=== PATIENT | female | born 1960 | race Caucasian/White ===

== ENCOUNTER 2022-12-29 08:33 | Outpatient (RCR) | payer MEDICARE, SELFPAY | END 2023-01-18 16:56 | disposition home or self-care (01) | LOC: PT 08:33 | PROVIDERS: PCP Family Medicine; Visit Provider Anesthesiology Pain Medicine | DX: M54.50 Low back pain, unspecified (principal); M54.16 Radiculopathy, lumbar region | CPT/HCPCS: 97010; 97110; 97113; 97140; G0283 ==

== ENCOUNTER 2022-12-29 11:40 | Outpatient (OUT) | payer BC, MEDICARE, SELFPAY ==
--- NOTE | 2022-12-29 12:01 | P.HP_ITS ---
Consult Note: HPI Data of Consult Patient: known to practice within the last 3 years Consult date: 12/29/22 Requesting Physician: CAYDEN ROBERTS NP Primary Care Provider: Luis Daniel Russell MD Consult Narrative Reason for consult: low back pain Narrative: Mesha is here for f/u of right LCIH nerve block. She received 80% relief of pain and increased function after procedure. She would like to proceed with RFA of same area. No medication SE. No new sensorimotor sx or bowel or bladder issues. She has weaned off of her percocet and is now doing medical marijuana which she states is helping her more. cc:: CC: CAYDEN ROBERTS NP Review of Systems ROS Status of ROS 10 or more systems reviewed and unremarkable except as noted in history and below Exam Constitutional: Common normals: no apparent distress, average body habitus, oriented x3, no limitations, healthy appearing, alert and well nourished General appearance: cooperative and comfortable Orientation/consciousness: Yes awake, Yes oriented to person, Yes oriented to place and Yes oriented to time HENMT: Common normals: normocephalic Neck & C-Spine: Common normals: full ROM General: normal visual inspection Respiratory: Common normals: normal respiratory effort, no retractions and no use of accessory muscles Effort & inspection: able to speak in complete sentences Back & Pelvis: Common normals: thoracic and lumbar spine normal to inspection Thoracic spine/upper back: normal to inspection Lumbar spine/lower back: n ormal to inspection, ROM limited, pain with ROM, lumbar spinal tenderness and straight leg raise negative bilaterally Sacroiliac joints: SI joints normal (positive thigh thrust, positive bridget, positive gaenslens. muscle strength ) Extremity: Common normals: normal to inspection and normal capillary refill Skin: Common normals: no rashes or lesions noted, no wounds and skin turgor normal Assessment and Plan Assessment and Plan (1) Neuritis: (2) Muscle spasm: Plan schedule right LCIH RFA
== END 2022-12-29 11:41 | disposition home or self-care (01) ==
PROVIDERS: PCP Family Medicine; Visit Provider Nurse Practitioner
DX: M79.2 Neuralgia and neuritis, unspecified (principal); M62.838 Other muscle spasm
CPT/HCPCS: G0463

== ENCOUNTER 2023-01-24 06:57 | Day surgery (SDC) | payer MEDICARE, SELFPAY ==
[2023-01-24 07:17] VITALS: BP 124/86; PULSE 78; RESP 18; TEMP 36.7; O2SAT 99
[2023-01-24] MEDS: 0.9 % SODIUM CHLORIDE 500 ML IV (07:33)
--- NOTE | 2023-01-24 07:41 | W.PM.PROCNOT ---
Date of procedure: 01/24/23 Procedure: Right Lateral cutaneous iliohypogastric nerve Radiofrequency ablation PreOp diagnosis: pain secondary to include right lateral cutaneous neuritis Postop diagnosis: same Under fluoroscopic guidance Rhizotomy was created using radio frequency ablation at 80?C for 90 seconds 1 to 2 lesions created at each site. Post lesioning injection of 2 mL each of 0.25% Marcaine and 2% lidocaine with Depo-Medrol 40mg. 0.5 to 1 mL injected at each site IV in place yes Intravenous fluids: NS at KVO Anesthesia local 2% lidocaine Anesthesia Other: MAC Timeout process compliant After informed consent obtained. Patient brought to the procedure room placed in the prone position skin overlying the area was prepped and draped in a sterile fashion using betadine. 25 gauge needle was used to create a skin wheal over each of the targeted areas utilizing 2% lidocaine. A rhizotomy needle with a 10 mm active tip was inserted over each of the anesthetized areas and directed towards four different areas in the distribution of the lateral cutaneous branches of the iliohypogastric nerve, accomplished under fluoroscopic guidance. After encountering the same we had positive sensory stimulation, negative motor stimulation was noted. lesions were then created. Post lesioning, steroid solution was injected needles removed. Patient was transferred to recovery room in stable condition to be discharged home after meeting criteria. Anesthesia: MAC Surgeon: Paola Aleman Condition: stable
[2023-01-24] MEDS: BUPIVACAINE HCL 0.25% PF 25 MG/10 ML VIAL 8 ML INJ (07:54)
[2023-01-24] MEDS: METHYLPREDNISOLONE ACETATE 40 MG/ML VIAL INJ (07:55)
[2023-01-24] MEDS: LIDOCAINE HCL 2% 400 MG/20 ML MDV 5 ML INJ (07:55)
[2023-01-24 08:09] VITALS: BP 103/68; PULSE 95; RESP 16; TEMP 36.6
[2023-01-24 08:12] VITALS: BP 106/69; PULSE 58; RESP 16; O2SAT 97
== END 2023-01-24 08:31 | disposition home or self-care (01) ==
PROVIDERS: PCP Family Medicine; Visit Provider Anesthesiology Pain Medicine
DX: G57.81 Other specified mononeuropathies of right lower limb (principal)
CPT/HCPCS: 64640; 77002; J1030; J2704

== ENCOUNTER 2023-03-29 12:46 | Outpatient (OUT) | payer MEDICARE, SELFPAY ==
--- NOTE | 2023-03-29 12:56 | P.CN_ITS ---
Consult Note: HPI Data of Consult Patient: known to practice within the last 3 years Requesting Physician: Juana Seaman NP Primary Care Provider: Luis Daniel Russell MD Consult Narrative Reason for consult: low back pain Narrative: Mesha Jung a pleasant 63 year old female presents to the office for evaluation of chronic low back and left buttock pain. Patient recently underwent right LCIH RFA with 50% pain relief and functional improvment. Patient continues to have severe low back pain and would like to discuss additional follow up. Pain today 02/06 cc:: CC: Juana Seaman NP Review of Systems ROS Status of ROS 10 or more systems reviewed and unremarkable except as noted in history and below Musculoskeletal Reports: back pain and joint pain PFSH [facility] Medical History (Updated 03/29/23 @ 14:59 by Juana Seaman NP) Surgical History Meds Home Medications and Allergies Home Medications Medication Instructions Recorded Confirmed Type calcium 100 mg capsule mg PO QDAY 01/19/23 History cbd extract BID 01/19/23 History cholecalciferol (vitamin D3) 50 50 mcg PO DAILY 01/19/23 01/24/23 History mcg (2,000 unit) tablet (D3 DOTS) lisinopril 20 1 tab PO BID 01/19/23 01/24/23 History mg-hydrochlorothiazide 25 mg tablet multivitamin 1 tab PO DAILY 01/19/23 01/24/23 History naproxen 500 mg tablet 500 mg PO BID 01/24/23 01/24/23 History Allergies Allergy/AdvReac Type Severity Reaction Status Date / Time No Known Drug Allergies Allergy Verified 01/24/23 07:10 Exam Constitutional Documenting provider has reviewed patient's vital signs: yes Common normals: no apparent distress, oriented x3, healthy appearing, alert and well nourished General appearance: cooperative HENMT Common normals: normocephalic, hearing grossly normal bilaterally and moist oral mucous membranes Head and scalp: normocephalic Eye Common normals: PERRL Pupil: PERRL Neck & C-Spine Common normals: full ROM General: normal visual inspection Chest Common normals: inspection of chest normal Respiratory Common normals: normal respiratory effort, no retractions and no use of accessory muscles Back & Pelvis Thoracic spine/upper back: ROM limited and pain with ROM Lumbar spine/lower back: ROM limited and pain with ROM Sacroiliac joints: SI joint(s) abnormal (bilateral pain over PSIS, positive thigh thrust, EMMANUEL, niko L>R) Other: no radiculopathy, predominately axial back pain. neuritis to buttocks Extremity Common normals: normal to inspection and full ROM Right lower extremity: knee joint (pain with weight bearing and ROM) Left lower extremity: knee joint (pain with weight bearing and ROM) Neuro Common normals: oriented x3, CN's II-XII intact bilaterally, moves all extremities, no focal motor deficits, no sensory deficits noted and deep tendon reflexes 2+ bilaterally Sensorium/orientation: alert Motor exam: strength 5/5 throughout and no movement abnormalities noted Psych Common normals: mental status grossly normal, thought process normal, cooperative, affect normal, speech normal and activity/motor behavior normal Speech: normal speech Thought process: normal thought process Results Additional Findings Additional findings: I have checked an [place] report on this patient today and there are no aberrancies noted in the prescribing history.?? A drug screen was completed and reviewed within the last year, and if there has not been a drug screen completed we ordered one today to monitor higher risk, state monitored pain medication use. As part of providing excellent, safe, comprehensive care, the following was completed at our patient's visit: 1. A medication reconciliation and review to ensure accurate knowledge of current/active medications, including asking our patients to inform us about any [id number] medications or herbal remedies/nutritional supplements/alternative remedies. 2. A review to specifically ensure our patients have had annual screening for: elevated body mass index (BMI), tobacco use, screening for depression, and screening for unhealthy alcohol use. When screening is concerning, patients are provided with education and the specific recommendation to discuss the concerning health issue and treatment options with their primary care provider. The patient has had over 3 months of moderate to severe low back pain with funct ional impairment and inadequate response to conservative care including NSAIDS (unless there are contraindication such as concurrent blood thinners), multiple oral or topical pain medications, and home exercise program/physical therapy.? Patient has completed >6 weeks of guided home exercise program and/or formal physical therapy program without relief of their symptoms.? The Oswestry Disability Index was completed, and the patient scored a 36%.? The patient noted the following:??moderate pain, can only lift light weights, pain prevents her from walking more than 0.5 miles, pain prevents her from sitting more than one hour, pain prevents her from standing for more than 1 hr, pain restricts social life We discussed the risks and benefits of the procedure with the patient, and we are NOT planning on using sedation as outlined in the guidelines from Medicare unless there is a documented reason that sedation would be strongly recommended.?? The procedure will be completed with fluoroscopic guidance.? Assessment and Plan Assessment and Plan (1) Lumbar spondylosis: Assessment and Plan: predominately axial low back pain, positive facet loading bilateral xray of lumbar spine reviewed (2) Bilateral sacroiliitis: Assessment and Plan: bilateral positive EMMANUEL, gaenslens, thigh thrust, and SI compression. Left>Right (3) Muscle spasm: (4) Fibromyalgia: Plan bilateral L4/5 L5/S1 MBB under fluoroscopy working towards thermal RFA patient currently on duloxetine 30mg daily, with fibromyalgia and chronic pain syndrome history recommend increasing to 60mg daily, pt will discuss with PCP next week. Offered to take over prescribing patient would like to talk with PCP. consider gabapentin/lyrica in the future for fibromyalgia f/u after procedure
== END 2023-03-29 12:47 | disposition home or self-care (01) ==
LOC: PM 12:47
PROVIDERS: PCP Family Medicine; Visit Provider Nurse Practitioner
DX: M47.816 Spondylosis without myelopathy or radiculopathy, lumbar region (principal); M62.838 Other muscle spasm; M46.1 Sacroiliitis, not elsewhere classified
CPT/HCPCS: G0463

== ENCOUNTER 2023-07-18 11:39 | Outpatient (OUT) | payer MEDICARE, SELFPAY ==
[2023-07-18 11:59] LABS: Basophils Percent Auto 0.6 % (0.2-2.0); Eosinophils Absolute Auto 0.1 10^3/uL (0.0-0.7); Eosinophils Percent Auto 0.9 % (0.9-7.0); Hemoglobin 11.7 g/dL (12.0-16.0); Immature Granulocytes Abs Auto 0.02 10^3/uL (0.00-0.03); Immature Granulocytes Pct Auto 0.3 % (0.0-0.5); Lymphocytes Absolute Auto 1.4 10^3/uL (1.2-3.8); Lymphocytes Percent Auto 22.1 % (20.5-60.0); Mean Corpuscular HGB Conc 32.5 g/dL (29.9-35.2); Mean Corpuscular Volume 89.3 fL (81.0-99.0); Mean Platelet Volume 9.4 fL (9.5-13.5); Monocytes Absolute Auto 0.3 10^3/uL (0.3-0.8); Monocytes Percent Auto 5.3 % (1.7-12.0); Neutrophils Absolute Auto 4.5 10^3/uL (1.4-6.5); Neutrophils Percent Auto 70.8 % (43.0-75.0); Platelet Count 360 10^3/uL (150-450); Red Blood Count 4.03 10^6/uL (4.20-5.40); Red Cell Distribution Width 13.3 % (11.0-15.0); White Blood Count 6.4 10^3/uL (4.0-11.0)
[2023-07-18 12:22] LABS: Estimated Average Glucose 120 mg/dL; Glycohemoglobin A1C 5.8 % (4.5-6.2)
[2023-07-18 13:35] LABS: Alanine Aminotransferase 26 U/L (14-59); Albumin Globulin Ratio 1.1; Albumin Level 3.5 g/dL (3.4-5.0); Alkaline Phosphatase 69 U/L (46-116); Aspartate Amino Transferase 19 U/L (15-37); Bilirubin Direct 0.1 mg/dL (0.0-0.2); Bilirubin Total 0.5 mg/dL (0.2-1.0); Calcium 9.7 mg/dL (8.5-10.1); Carbon Dioxide 31.5 mmol/L (21.0-32.0); Chloride 101 mmol/L (98-107); Chol HDL Ratio 3.5; Cholesterol 177 mg/dL (<=200); Estimated GFR (African America >60 (>=60); Estimated GFR (Non-African Ame >60 (>=60); Globulin 3.3 g/dL; Glucose 118 mg/dL (74-106); HDL Cholesterol 50 mg/dL (40-60); LDL Cholesterol Calculated 107.8 mg/dL; Potassium 3.5 mmol/L (3.5-5.1); Sodium 139 mmol/L (136-145); Thyroid Stimulating Hormone 0.744 uIU/mL (0.358-3.740); Total Protein 6.8 g/dL (6.4-8.2); Triglycerides 96 mg/dL (<=150); VLDL CHOLESTEROL 19.2 mg/dL
== END 2023-07-18 11:40 | disposition home or self-care (01) ==
LOC: LAB 11:43
PROVIDERS: PCP Family Medicine; Visit Provider Family Medicine
DX: Z79.899 Other long term (current) drug therapy (principal); I10 Essential (primary) hypertension; R73.03 Prediabetes; E66.9 Obesity, unspecified; E53.8 Deficiency of other specified B group vitamins; Z68.30 Body mass index [BMI] 30.0-30.9, adult
CPT/HCPCS: 36415; 80048; 80061; 80076; 82607; 83036; 84443; 85025

== ENCOUNTER 2023-09-01 13:13 | Outpatient (OUT) | payer MEDICARE, SELFPAY ==
--- OUTSIDE RECORDS SUMMARY | 2023-09-01 13:18 | XMS_ITS | CCD ---
Author Name Unknown Address [id number] [place] [address] Organization [facility] Care Team Providers Care Wildlife Protector Name Role Phone TRENT ., DR HECTOR Garcia Attending Unavailable BARFIELD ., PATRIA Consulting Unavailable TRENT ., DR HECTOR Garcia Admitting Unavailable NADERER, DR LUIS DANIEL Nazario Primary Care Unavailable TRENT ., DR HECTOR Garcia Attending Unavailable TRENT ., DR HECTOR Garcia Admitting Unavailable TRENT ., DR HECTOR Garcia Consulting Unavailable NADERENick, DR LUIS DANIEL Nazario Primary Care Unavailable BARFIELD ., PATRIA Consulting Unavailable NADERENick, DR LUIS DANIEL Nazario Primary Care Unavailable TRENT ., DR HECTOR Garcia Admitting Unavailable TRENT ., DR HECTOR Garcia Attending Unavailable LAKSHMIPATHY ., GRACIELA Attending Serena vailable LAKSHMIPATHY ., GRACIELA Admitting Serena vailable NADBETH, DR LUIS DANIEL Nazario Primary Care Unavailable LACEY, DR WILFRED Romero Consulting Unavailable LAKSHMIPATHY ., GRACIELA Consulting Serena vailable NADBETH, DR LUIS DANIEL Nazario Admitting Unavailable NADBETH, DR LUIS DANIEL Nazario Primary Care Unavailable NADERENick, DR LUIS DANIEL Nazario Consulting Unavailable NADERENick, DR LUIS DANIEL Nazario Attending Unavailable LAKSHMIPATHY ., NARVENUS Attending Serena vailable LAKSHMIPATHY ., GRACIELA Admitting Serena vailable NADBETH, DR LUIS DANIEL Nazario Primary Care Unavailable NADBETH, DR LUIS DANIEL Nazario Primary Care Unavailable NADERENick, DR LUIS DANIEL Nazario Attending Unavailable NADERENick, DR LUIS DANIEL Nazario Admitting Unavailable WEST, DR RACHEL Sanon Consulting Unavailable NADERER, DR LUIS DANIEL Nazario Consulting Unavailable NADBETH, DR LUIS DANIEL Nazario Primary Care Unavailable TRENT ., DR HECTOR Garcia Consulting Unavailable TRENT ., DR HECTOR Garcia Attending Unavailable TRENT ., DR HECTOR Garcia Admitting Unavailable OPHELIA NEWMAN Consulting Unavailable BARFIELD ., PATRIA Consulting Unavailable NADERER, DR LUIS DANIEL Nazario Primary Care Unavailable TRENT ., DR HECTOR Garcia Admitting Unavailable TRENT ., DR HECTOR Garcia Attending Unavailable LAKSHMIPATHY ., GRACIELA Consulting Serena vailable NADERER, DR LUIS DANIEL Nazario Primary Care Unavailable TRENT ., DR HECTOR Garcia Admitting Unavailable BARFIELD ., PATRIA Consulting Unavailable TRENT ., DR HECTOR Garcia Attending Unavailable LAKSHMIPATHY ., NARENDRANJUDI Consulting Serena vailable LAKSHMIPATHY ., NARROSANNAATH Attending Serena vailable LAKSHMIPATHY ., NARENDRANATH Admitting Serena vailable NADERER, DR LUIS DANIEL Nazario Primary Care Unavailable LAKSHMIPATHY ., NARENDGRANT Attending Serena vailable LAKSHMIPATHY ., NARENDLATISHAATH Admitting Serena vailable NADERER, DR LUIS DANIEL Nazario Primary Care Unavailable TRENT ., DR HECTOR Garcia Admitting Unavailable NADERER, DR LUIS DANIEL Nazario Primary Care Unavailable TRENT ., DR HECTOR Garcia Consulting Unavailable TRENT ., DR HECTOR Garcia Attending Unavailable JOANADANELLE NOVOA Consulting Unava ilable TRENT ., DR HECTOR Garcia Admitting Unavailable BARFIELD ., PATRIA Consulting Unavailable TRENT ., DR HECTOR Garcia Attending Unavailable NADERER, DR LUIS DANIEL Nazario Primary Care Unavailable NADERER, DR LUIS DANIEL Nazario Primary Care Unavailable REINECK, DR YAMILEX Bhatt Attending Unavailabl e REINECK, DR YAMILEX Bhatt Admitting Unavailabl e REINECK, DR YAMILEX Bhatt Consulting Unavailabl e NADERER, DR LUIS DANIEL Nazario Primary Care Unavailable TRENT ., DR HECTOR Garcia Admitting Unavailable TRENT ., DR HECTOR Garcia Consulting Unavailable TRENT ., DR HECTOR Garcia Attending Unavailable BARFIELD ., PATRIA Attending Unavailable BARFIELD ., PATRIA Admitting Unavailable BARFIELD ., PATRIA Consulting Unavailable NADERER, DR LUIS DANIEL Nazario Primary Care Unavailable NADERER, DR LUIS DANIEL Nazario Primary Care Unavailable TRENT ., DR HECTOR Garcia Admitting Unavailable TRENT ., DR HECTOR Garcia Consulting Unavailable TRENT ., DR HECTOR Garcia Attending Unavailable NADERER, LUIS DANIEL Attending Unavailable Problems Active Problems Problem Classification Problem Date Documented Date Episodic/Chronic Other nervous system disorders (4 sources) Other specified mononeuropathies of right lower limb; Translations: [OTH SPEC MONONEUROPATH RT LOW LIMB] Onset: 12-06-2022 Chronic Other nervous system disorders (2 sources) Other chronic pain; Translations: [OTHER CHRONIC PAIN] Onset: 08-18-2022 Chronic Other nervous system disorders (1 source) Other specified mononeuropathies; Translations: [OTHER SPECIFIED MONONEUROPATHIES] Onset: 11-28-2022 Chronic Other non-traumatic joint disorders (3 sources) Pain in right hip; Translations: [PAIN IN RIGHT HIP] Onset: 11-24-2022 Episodic Spondylosis; intervertebral disc disorders; other back problems (6 sources) Spondylosis without myelopathy or radiculopathy, lumbar region; Translations: [Other intervertebral disc degeneration, lumbar region] Onset: 04-12-2022 Chronic Spondylosis; intervertebral disc disorders; other back problems (6 sources) Intervertebral disc disorders with radiculopathy, lumbar region; Translations: [Radiculopathy, lumbar region] Onset: 08-25-2022 Episodic Unclassified (4 sources) LOW BACK PAIN, UNSPECIFIED; Translations: [LOW BACK PAIN, UNSPECIFIED] Onset: 11-30-2022 Unclassified (3 sources) CONTACT W/AND (SUSP) EXPOS COVID-19; Translations: [CONTACT W/AND (SUSP) EXPOS COVID-19] Onset: 04-16-2022 Viral infection (1 source) COVID-19; Translations: [COVID-19] Onset: 07-13-2022 Past or Other Problems Problem Classification Problem Date Documented Da te Episodic/Chronic Other connective tissue disease (5 sources) Other muscle spasm; Translations: [OTHER MUSCLE SPASM] Onset: 05-12-2022 Episodic Other screening for suspected conditions (not mental disorders or infectious disease) (4 sources) Encounter for screening mammogram for malignant neoplasm of breast; Translations: [ENC SCR MAMMO MALIG NEOPLASM BREAST] Onset: 06-09-2022 Episodic Residual codes; unclassified (1 source) Family history of malignant neoplasm of breast; Translations: [FAMILY HX MALIG NEOPLASM OF BREAST] Onset: 06-13-2022 Episodic Residual codes; unclassified (1 source) Family history of malignant neoplasm, unspecified; Translations: [FAM HX MALIGNANT NEOPLASM UNS] Onset: 06-13-2022 Episodic Unclassified (1 source) LOW BACK PAIN, UNSPECIFIED; Translations: [LOW BACK PAIN, UNSPECIFIED] Onset: 12-09-2022 Unclassified (1 source) CONTACT W/AND (SUSP) EXPOS COVID-19; Translations: [CONTACT W/AND (SUSP) EXPOS COVID-19] Onset: 07-09-2022 Results Test Name Value Interpretation Reference Range Facility MRI TOBY CARD CONon 12-10-19 MRI TOBY CARD CON EXAMINATION: MRI TOBY CARD CON HISTORY: Low back pain ; chronic lumbar pain now radiating into right leg COMPARISON: No relevant comparison available. TECHNIQUE: A variety of imaging planes and parameters were utilized for visualization of suspected pathology. FINDINGS: For the purposes of numbering, sagittal T2 image # 10 extends from the T10-T11 vertebral body superiorly to the S4 level inferiorly. PARASPINAL AREA: Multiple simple appearing renal cysts bilaterally. BONES: Left convex curvature of lumbar spine. No fracture, spondylolisthesis, or bone lesion. CORD/CAUDA EQUINA: Normal caliber, contour, and signal intensity. DISC LEVELS: 12-L1: T10-T11, T11 -12 mild central canal and bilateral foramen narrowing secondary to moderate diffuse disc bulging. L1-L2: Mild central canal and moderate left foramen narrowing. Mild right foramen narrowing. Left paracentral and foraminal broad-based disc extrusion extending cephalad to the mid body level of L1. Marked disc space narrowing. Mild degenerative facet arthropathy. L2-L3: Marked central canal narrowing. Moderate-marked right foramen and moderate left foramen narrowing. Marked diffuse disc bulging and marked disc height reduction with degenerative endplate changes. Moderate degenerative facet arthropathy and marked ligamentum flavum thickening. L3-L4: Moderate-marked central canal and right foramen narrowing. Mild left foramen narrowing. Marked diffuse disc bulging and moderate disc height reduction. Mild degenerative facet arthropathy and ligamentum flavum thickening. L4-L5: Moderate-marked central canal narrowing and moderate foramen narrowing bilaterally. Moderate diffuse disc bulging without significant disc height reduction. Mild degenerative facet arthropathy. L5-S1: Mild central canal and right foramen narrowing. Moderate left foramen narrowing. Mild diffuse disc bulging and mild disc height reduction. Moderate left, mild right degenerative facet arthropathy. IMPRESSION: 1. Multilevel moderate marked degenerative disc disease and degenerative facet arthropathy. 2. Moderate to marked central canal and right foramen narrowing L2-L3, L3-L4, L4-L5 as detailed above. Electronically authenticated by: WILFRED RAHMAN Date: 2022-12-09 11:57 Normal [facility] Covid-19 PCR (CVDTBH)on 06-30 SARS-CoV-2 (COVID-19) RNA KEIRY+probe Ql (Unsp spec) Detected Critically abnormal NOT DETECTED [facility] Comment on above: Result Comment: This test is not yet approved or cleared by the [place] FDA. When there are no FDA-approved or cleared tests available, and other criteria are met, FDA can make tests available under an emergency access mechanism called an Emergency Use Authorization (EUA). The EUA for this test is supported by the Inside Sales Assistant of Health and Human Service's declaration that circumstances exist to justify the emergency use of in vitro diagnostics for the detection and/or diagnosis of the virus that causes COVID-19. This EUA will remain in effect for the duration of the COVID-19 declaration justifying emergency of IVDs, unless it is terminated or revoked by the FDA (after which the test may no longer be used). Performed By: #### [facility] ####[facility] [address] [place], [place] [address]Df. Nelsy Corrigan MG MAMM SCREEN 3D GAVIN CADon 06-09-2022 MG MAMM SCREEN 3D GAVIN CAD Patient: MARICRUZ BOLTON Exam Date: 06/09/2022 : 1960 Gender:F Ordering : DR LUIS DANIEL FARIAS . Admission #: [id number] Family : Order #: [id number] CLICK HERE TO VIEW EXAM RADIOLOGY REPORT PROCEDURE: MAMMOGRAM SCREENING 3D BILATERAL CAD COMPARISON: MAMMO GAVIN SCREEN, 10/29/2013. MAMMO GAVIN SCREEN, 10/23/2015. INDICATIONS: Screening mammography Calculator Name NCI Breast Cancer Risk Assessment Tool 5 Year Breast Cancer Risk 1.60% Lifetime Breast Cancer Risk 6.30% Personal Breast Cancer No Personal Ovarian Cancer No Treatments None Family Cancers Aunt-maternal with breast cancer at age 59; Father with unknown cancer at age 72. LOCATION: [facility] BREAST COMPOSITION: Scattered areas fibroglandular density. FINDINGS: DIAGNOSTIC CATEGORY 2--BENIGN FINDING. NO CHANGE FROM COMPARISON. Scattered benign-appearing nodules are present. Scattered benign-appearing calcifications are present. Scattered benign-appearing lymph nodes are present. RIGHT BREAST: No significant suspicious finding. LEFT BREAST: No significant suspicious finding. Linear scar marker upper outer quadrant RECOMMENDATIONS: ROUTINE MAMMOGRAM AND CLINICAL EVALUATION IN 12 MONTHS. PLEASE NOTE: A NORMAL MAMMOGRAM DOES NOT EXCLUDE THE POSSIBILITY OF BREAST CANCER. A CLINICALLY SUSPICIOUS PALPABLE LUMP SHOULD BE BIOPSIED. Dictated by: Rachel Morales MD on 06/10/2022 at 09:02 Approved by: Rachel Morales MD on 06/10/2022 at 09:05 Normal [facility] CBC AUTO DIFFon 06-02-2022 BASO # 0.0 103/ul Normal 0.0-0.1 [facility] Comment on above: Performed By: #### C BC ####[facility] [address] [place] [address]Dr. Nelsy Corrigan Basophils/100 WBC (Bld) 0.6 % Normal 0.2-2.0 [facility] Comment on above: Performed By: #### C BC ####[facility] [address] [place], [place] [address]Dr. Nelsy Corrigan EO # 0.3 103/ul Normal 0.0-0.7 [facility] Comment on above: Performed By: #### C BC ####[facility] [address] [place], [place] [address]Dr. Nelsy Corrigan Eosinophils/100 WBC (Bld) 3.6 % Normal 0.9-7.0 [facility] Comment on above: Performed By: #### C BC ####[facility] [address] [place], [place] [address]Dr. Nelsy Corrigan Erythrocyte distribution width (RBC) [Ratio] 13.8 % Normal 11.0-15.0 [facility] Comment on above: Performed By: #### C BC ####[facility] [address] [place], [place] [address]Dr. Nelsy Corrigan Hematocrit (Bld) [Volume fraction] 37.2 % Normal 36.0-48.0 [facility] Comment on above: Performed By: #### C BC ####[facility] [address] [place], [place] [address]Dr. Nelsy Corrigan Hemoglobin (Bld) [Mass/Vol] 11.9 g/dL Critically low 12.0-16.0 [facility] Comment on above: Performed By: #### C BC ####[facility] [address] [place] [address]Dr. Nelsy Corrigan IG # 0.02 10e3/ul Normal 0.00-0.03 [facility] Comment on above: Performed By: #### C BC ####[facility] [address] [place] [id number]. Nelsy Corrigan IG % 0.3 % Normal 0.0-0.5 [facility] Comment on above: Performed By: #### C BC ####[facility] [address] [place] [address]Dr. Nelsy Corrigan LYMPH # 1.6 103/ul Normal 1.2-3.8 [facility] Comment on above: Performed By: #### C BC ####[facility] [address] [place] [address]Dr. Nelsy Corrigan Lymphocytes/100 WBC (Bld) 22.5 % Normal 20.5-60.0 [facility] Comment on above: Performed By: #### C BC ####[facility] [address] [place] [address]Dr. Nelsy Corrigan MANUAL DIFF REQ NO Normal [facility] Comment on above: Performed By: #### C BC ####[facility] [address] [place] [id number]. Nelsy Corrigan MCH (RBC) [Entitic mass] 29.3 pg Normal 26.7-34.0 [facility] Comment on above: Performed By: #### C BC ####[facility] [address] [place] [id number]. Nelsy Corrigan MCHC (RBC) [Mass/Vol] 32.0 g/dL Normal 29.9-35.2 [facility] Comment on above: Performed By: #### C BC ####[facility] [address] [place] [id number]. Nelsy Corrigan MCV (RBC) [Entitic vol] 91.6 fL Normal 81.0-99.0 [facility] Comment on above: Performed By: #### C BC ####[facility] [address] [place] [id number]. Nelsy Corrigan MONO # 0.5 103/ul Normal 0.3-0.8 [facility] Comment on above: Performed By: #### C BC ####[facility] [address] [place] [id number]. Nelsy Corrigan Monocytes/100 WBC (Bld) 7.6 % Normal 1.7-12.0 [facility] Comment on above: Performed By: #### C BC ####[facility] [address] [place] [id number]. Nelsy Corrigan NEUT # 4.5 103/ul Normal 1.4-6.5 [facility] Comment on above: Performed By: #### C BC ####[facility] [address] [place] [address]Dr. Nelsy Corrigan Neutrophils/100 WBC (Bld) 65.4 % Normal 43.0-75.0 [facility] Comment on above: Performed By: #### C BC ####[facility] [address] [place] [id number]. Nelsy Corrigan Platelet mean volume (Bld) [Entitic vol] 10.2 fL Normal 9.5-13.5 [facility] Comment on above: Performed By: #### C BC ####[facility] [address] [place] [id number]. Nelsy Corrigan PLT 341 103/ul Normal 150-450 [facility] Comment on above: Performed By: #### C BC ####[facility] [address] [place] [id number]. Nelsy Corrigan RBC 4.06 106/ul Critically low 4.20-5.40 [facility] Comment on above: Performed By: #### C BC ####[facility] [address] [place] [id number]. Nelsy Corrigan WBC 6.9 103/ul Normal 4.0-11.0 [facility] Comment on above: Performed By: #### C BC ####[facility] [address] [place] [id number]. Nelsy Corrigan GLYCOHEMOGLOBIN A1Con 2021 ADA RECOMMENDATION SEE BELOW Normal [facility] Comment on above: Result Comment: ADA RECOMMENDED LIMIT 4.0 - 6.0 ADA THERAPEUTIC TARGET < 7.0 ACTION SUGGESTED > 7.0 Performed By: #### A 1C ####[facility] [address] [place] [address]Dr. Nelsy Corrigan Glucose [Mass/Vol] 114 mg/dL Normal [facility] Comment on above: Performed By: #### A 1C ####[facility] [address] [place] [address]Dr. Nelsy Corrigan HbA1c (Bld) [Mass fraction] 5.6 % Normal 4.5-6.2 [facility] Comment on above: Performed By: #### A 1C ####[facility] [address] [place] [address]Dr. Nelsy Corrigan LIPID PROFILEon 06-02-2022 CHOL-HDL RATIO NORM SEE BELOW Normal [facility] Comment on above: Result Comment: 3.3 - 4.4 LOW RISK 4.4 - 7.1 AVERAGE RISK 7.1 - 11.0 MODERATE RISK >11.0 HIGH RISK Performed By: #### L DEAN BAPTISTE, TSH, LIPID #### [facility] [address] [place] [address] [address] Nelsy Corrigan Cholesterol [Mass/Vol] 169 mg/dL Normal <=200 [facility] Comment on above: Performed By: #### L IVRUI, BMP, TSH, LIPID #### [facility] [address] [place] [address] [address] Nelsy Corrigan Cholesterol in HDL [Mass/Vol] 50 mg/dL Normal 40-60 [facility] Comment on above: Performed By: #### L DEAN BAPTISTE, TSH, LIPID #### [facility] [address] [place] [address] [address] Nelsy Corrigan Cholesterol in LDL [Mass/Vol] 97.8 mg/dL Normal [facility] Comment on above: Performed By: #### L OLIVA BMP, TSH, LIPID #### [facility] [address] [place] [address] [address] Nelsy Corrigan Cholesterol.total/Ch olesterol in HDL [Mass ratio] 3.4 {ratio} Normal [facility] Comment on above: Performed By: #### L IVER, BMP, TSH, LIPID #### [facility] [address] [place] [address] [address] Nelsy Corrigan HDL NORMAL > or = 60 mg/dl - LOW CARDIOVASCULAR RISK <40 mg/dl - HIGH CARDIOVASCULAR RISK Normal [facility] Comment on above: Performed By: #### L IVER, BMP, TSH, LIPID #### [facility] [address] [place] [address] Dr. Nelsy Corrigan LDL CALC NORMAL SEE BELOW Normal [facility] Comment on above: Result Comment: <100 mg/dl OPTIMAL 100 - 129 mg/dl NEAR OR ABOVE OPTIMAL 130 - 159 mg/dl BORDERLINE HIGH 160 - 189 mg/dl HIGH >190 mg/dl VERY HIGH Performed By: #### L IVER, BMP, TSH, LIPID #### [facility] [address] [place] [address] [address] Nelsy Corrigan Triglyceride [Mass/Vol] 106 mg/dL Normal <=150 [facility] Comment on above: Performed By: #### L IVER, BMP, TSH, LIPID #### [facility] [address] [place] [address] Dr. Nelsy Corrigan VLDL CALC 21.2 mg/dL Normal [facility] Comment on above: Performed By: #### L IVER, BMP, TSH, LIPID #### [facility] [address] [place] [address] [address] Nelsy Corrigan LIVER PROFILEon 06-02-2022 Albumin [Mass/Vol] 3.6 g/dL Normal 3.4-5.0 [facility] Comment on above: Performed By: #### L IVER, BMP, TSH, LIPID #### [facility] [address] [place] [address] Dr. Nelsy Corrigan Albumin/Globulin [Mass ratio] 1.1 {ratio} Normal [facility] Comment on above: Performed By: #### L IVER, BMP, TSH, LIPID #### [facility] [address] [place] [address] [address] Nelsy Corrigan ALP [Catalytic activity/Vol] 61 U/L Normal 46-116 [facility] Comment on above: Performed By: #### L IVER, BMP, TSH, LIPID #### [facility] [address] [place] [address] Dr. Nelsy Corrigan ALT [Catalytic activity/Vol] 27 U/L Normal 14-59 [facility] Comment on above: Performed By: #### L IVER, BMP, TSH, LIPID #### [facility] [address] [place] [address] Dr. Nelsy Corrigan AST [Catalytic activity/Vol] 20 U/L Normal 15-37 [facility] Comment on above: Performed By: #### L IVER, BMP, TSH, LIPID #### [facility] [address] [place] [address] Dr. Nelsy Corrigan BILI, CONJUGATED 0.1 mg/dL Normal 0.0-0.2 [facility] Comment on above: Performed By: #### L IVER, BMP, TSH, LIPID #### [facility] [address] [place] [address] Dr. Nelsy Corrigan Bilirubin [Mass/Vol] 0.4 mg/dL Normal 0.2-1.0 [facility] Comment on above: Performed By: #### L IVER, BMP, TSH, LIPID #### [facility] [address] [place] [address] Dr. Nelsy Corrigan Globulin (S) [Mass/Vol] 3.2 g/dL Normal [facility] Comment on above: Performed By: #### L IVER, BMP, TSH, LIPID #### [facility] [address] [place] [address] Dr. Nelsy Corrigan Protein [Mass/Vol] 6.8 g/dL Normal 6.4-8.2 [facility] Comment on above: Performed By: #### L IVER, BMP, TSH, LIPID #### [facility] [address] [place] [address] Dr. Nelsy Corrigan PROF CHEM 8 (BAS METB)on Anion gap [Moles/Vol] 9.7 mmol/L Normal [facility] Comment on above: Performed By: #### L IVER, BMP, TSH, LIPID #### [facility] [address] [place] [address] Dr. Nelsy Corrigan Calcium [Mass/Vol] 10.4 mg/dL Critically high 8.5-10.1 [facility] Comment on above: Performed By: #### L IVER, BMP, TSH, LIPID #### [facility] [address] [place] [address] Dr. Nelsy Corrigan Chloride [Moles/Vol] 101 mmol/L Normal 98-107 [facility] Comment on above: Performed By: #### L IVER, BMP, TSH, LIPID #### [facility] [address] [place] [address] Dr. Nelsy Corrigan CO2 [Moles/Vol] 28.1 mmol/L Normal 21.0-32.0 [facility] Comment on above: Performed By: #### L IVER, BMP, TSH, LIPID #### [facility] [address] [place] [address] Dr. Nelsy Corrigan Creatinine [Mass/Vol] 0.69 mg/dL Normal 0.55-1.02 [facility] Comment on above: Performed By: #### L IVER, BMP, TSH, LIPID #### [facility] [address] [place] [address] Dr. Nelsy Corrigan EGFR-AF GAMBIAN >60 Normal >=60 [facility] Comment on above: Performed By: #### L IVER, BMP, TSH, LIPID #### [facility] [address] [place] [address] Dr. Nlesy Corrigan EGFR-NON AF GAMBIAN >60 Normal >=60 [facility] Comment on above: Performed By: #### L IVER, BMP, TSH, LIPID #### [facility] [address] [place] [address] Dr. Nelsy Corrigan Glucose [Mass/Vol] 92 mg/dL Normal 74-106 [facility] Comment on above: Performed By: #### L IVER, BMP, TSH, LIPID #### [facility] [address] [place] [address] Dr. Nelsy Corrigan Potassium [Moles/Vol] 3.8 mmol/L Normal 3.5-5.1 [facility] Comment on above: Performed By: #### L IVER, BMP, TSH, LIPID #### [facility] [address] [place] [address] Dr. Nelsy Corrigan Sodium [Moles/Vol] 135 mmol/L Critically low 136-145 Th [facility] Comment on above: Performed By: #### L IVER, BMP, TSH, LIPID #### [facility] [address] [place] [address] Dr. Nelsy Corrigan Urea nitrogen [Mass/Vol] 24.0 mg/dL Critically high 7.0-18.0 [facility] Comment on above: Performed By: #### L IVER, BMP, TSH, LIPID #### [facility] [address] [place] [address] Dr. Nelsy Corrigan Urea nitrogen/Creatinine [Mass ratio] 34.8 mg/mg Normal [facility] Comment on above: Performed By: #### L IVER, BMP, TSH, LIPID #### [facility] [address] [place] [address] Dr. Nelsy Corrigan TSHon 06-02-2022 TSH 1.422 uIU/mL Normal 0.358-3.740 [facility] Comment on above: Performed By: #### L IVER, BMP, TSH, LIPID #### [facility] [address] [place] [address] Dr. Nelsy Corrigan VITAMIN B12on 06-02-2022 Cobalamin (Vitamin B12) [Mass/Vol] 878.0 pg/mL Normal 193.0-986.0 [facility] Comment on above: Performed By: #### V ITB12 #### [facility] [address] [place] [address] Dr. Nelsy Corrigan Covid-19 PCR (CVDTBH)on 03-31 SARS-CoV-2 (COVID-19) RNA KEIRY+probe Ql (Unsp spec) Not detected Normal NOT DETECTED [facility] Comment on above: Result Comment: This test is not yet approved or cleared by the [place] FDA. When there are no FDA-approved or cleared tests available, and other criteria are met, FDA can make tests available under an emergency access mechanism called an Emergency Use Authorization (EUA). The EUA for this test is supported by the [place] of Health and Human Service's (HHS's) declaration that circumstances exist to justify the emergency use of in vitro diagnostics for the detection and/or diagnosis of the virus that causes COVID-19. This EUA will remain in effect (meaning this test can be used) for the duration of the COVID-19 declaration justifying emergency of IVDs, unless it is terminated or revoked by FDA (after which the test may no longer be used). When diagnostic testing is negative, the possibility of a false negative should be considered in the context of a patient's recent exposures and the presence of clinical signs and symptoms consistent with SARS-CoV-2. Performed By: #### [facility] ####[facility] [address] [place] [id number] Corrigan Covid-19 PCR (CVDTB)on SARS-CoV-2 (COVID-19) RNA KEIRY+probe Ql (Unsp spec) Not detected Normal NOT DETECTED [facility] Comment on above: Result Comment: This test is not yet approved or cleared by the [place] FDA. When there are no FDA-approved or cleared tests available, and other criteria are met, FDA can make tests available under an emergency access mechanism called an Emergency Use Authorization (EUA). The EUA for this test is supported by the [place] of Health and Human Service's (HHS's) declaration that circumstances exist to justify the emergency use of in vitro diagnostics for the detection and/or diagnosis of the virus that causes COVID-19. This EUA will remain in effect (meaning this test can be used) for the duration of the COVID-19 declaration justifying emergency of IVDs, unless it is terminated or revoked by FDA (after which the test may no longer be used). When diagnostic testing is negative, the possibility of a false negative should be considered in the context of a patient's recent exposures and the presence of clinical signs and symptoms consistent with SARS-CoV-2. Performed By: #### C [facility] ####[facility] [address] [place], [place] [address]DnJan Corrigan Encounters Encounter Date Encounter Type Care Provider Facility Start: 08-22-2023 End: 08-22-2023 ambulatory LUIS DANIEL FARIAS Not Available Start: 12-29-2022 ambulatory NARENDRANATH LAKSHMIPATHY . Facility:[facility] Start: 12-09-2022 End: 12-10-2022 ambulatory NARENDRANATH LAKSHMIPATHY . Facility:[facility] Start: 12-06-2022 End: 12-06-2022 ambulatory NARENDRANATH LAKSHMIPATHY . Facility:[facility] Start: 11-30-2022 End: 12-28-2022 ambulatory NARENDRANATH LAKSHMIPATHY . Facility:[facility] Start: 11-24-2022 End: 11-25-2022 ambulatory PATRIA BARFIELD . Facility:[facility] Start: 08-25-2022 End: 08-26-[address] LUIS DANIEL FARIAS Facility:[facility] Start: 08-11-2022 End: 08-12-2022 ambulatory PATRIA BARFIELD . Facility:[facility] Start: 07-09-2022 End: 07-09-[address] LUIS DANIEL FARIAS Facility:[facility] Start: 06-09-2022 End: 06-10-[address] LUIS DANIEL FARIAS Facility:[facility] Start: 06-06-2022 Encounter for genera l adult medical examination without abnormal findings DR LUIS DANIEL FARIAS [facility] Start: 06-02-2022 End: 06-03-[address] LUIS DANIEL FARIAS Facility:[facility] Start: 06-02-2022 End: 06-03-2022 Encounter for general adult medical examination without abnormal findings DR LUIS DANIEL FARIAS Facility:[facility] Start: 05-12-2022 End: 05-13-2022 ambulatory PATRIA BARFIELD . Facility:[facility] Start: 04-16-2022 Encounter for preprocedural laboratory examination DR HECTOR TRENT . [facility] Start: 04-12-2022 End: 04-12-[address] LUIS DANIEL FARIAS Facility:[facility] Start: 04-11-2022 End: 04-12-[address] LUIS DANIEL FARIAS Facility:[facility] Start: 04-11-2022 End: 04-12-2022 Encounter for preprocedural laboratory examination DR LUIS DANIEL FARIAS Facility:[facility] Start: 04-05-2022 End: 04-05-[address] HECTOR TRENT . Facility:[facility] Start: 04-01-2022 End: 04-02-[address] LUIS DANIEL FARIAS Facility:[facility] Start: 03-09-2022 End: 03-10-[address] HECTOR TRENT . Facility:[facility] Start: 02-22-2022 End: 02-22-[address] HECTOR TRENT . Facility:[facility] Start: 02-03-2022 End: 02-04-[address] HECTOR TRENT . Facility:[facility] Payers Date Payer Category Payer Medicare [id number] 1961 Unknown [id number] 1960 Unknown [id number] 2.16.84 0.1.142020.3.579.2.593 1960 Unknown [id number] 2.16.84 0.1.070997.3.579.2.593 1960 Unknown [id number] 2.16.84 0.1.268893.3.579.2.593 1960 Unknown [id number] 2.16.84 0.1.313709.3.579.2.593 1960 Unknown [id number] 2.16.84 0.1.877793.3.579.2.593 1960 Unknown [id number] 2.16.84 0.1.155002.3.579.2.593 1960 Unknown [id number] 2.16.84 0.1.259867.3.579.2.593 1958 Unknown [id number] 2.16.84 0.1.722793.3.579.2.593 1958 Unknown [id number] 2.16.84 0.1.181411.3.579.2.593 1958 Unknown [id number] 2.16.84 0.1.039234.3.579.2.593 1958 Unknown [id number] 2.16.84 0.1.458562.3.579.2.593 1958 Unknown [id number] 2.16.84 0.1.321972.3.579.2.593 1958 Unknown [id number] 2.16.84 0.1.926229.3.579.2.593 1958 Unknown [id number] 2.16.84 0.1.322664.3.579.2.593 1958 Unknown [id number] 2.16.84 0.1.826539.3.579.2.593 1958 Unknown [id number] 2.16.84 0.1.833172.3.579.2.593 1958 Unknown [id number] 2.16.84 0.1.823078.3.579.2.593 1958 Unknown [id number] 2.16.84 0.1.875371.3.579.2.593 1958 Unknown [id number] 2.16.84 0.1.806964.3.579.2.1259 Consultation note 11-24-2022 Note Date & Type Note Facility 11-24-2022 Note CONSULTATION CONSULTATION DATE: 11/24/2022 TO: Luis Daniel Farias M.D. CHIEF COMPLAINT: Includes right sided buttock pain, hip pain. HISTORY: She reports the pain as being 5-7/10 pain, sharp in character, increased with activities such as standing, walking, and performing transitioning maneuvers. She feels most comfortable in the semi-recumbent position. She denies any change in bowel and bladder habits or new sensorimotor changes in the lower extremities. She reports burning and tingling overlying the right hip and buttock area on the right side, sensitive to even light touch. EXAM: Notable for patient having no clinical radiculopathy or myelopathy involving the lower extremities. However, she did have pain with lumbar axial loading maneuvers, with point tenderness overlying the L4-5 and L5-S1 interspace. She has a fair amount of myofascial spasm involving the lumbar paravertebral muscles as well. 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 RECOMMENDATIONS: I have recommended she undergo lumbosacral MRI to determine if there is a mechanical etiology for her possible discogenic pain. Proceed with a diagnostic right sided lateral cutaneous branch of the iliohypogastric nerve injection under fluoroscopic guidance. Baclofen 10 mg, one-quarter pill to one-half pill t.i.d. and physical therapy is ordered. I have asked her to discontinue or wean off the Percocet secondary to ineffectiveness. Her NYDIA was 31 on today's visit. As part of providing excellent, safe, comprehensive care, the following was completed at our patient's visit: 1. A medication reconciliation and review to ensure accurate knowledge of current/active medications, including asking our patients to inform us about any [id number]-amqbrwe medications or herbal remedies/nutritional supplements/alternative remedies. 2. A review to specifically ensure our patients have had annual screening for: elevated body mass index (BMI, see intake chart for exact total), tobacco use, screening for depression, and screening for unhealthy alcohol use. When screening is concerning, patients are provided with education and the specific recommendation to discuss the concerning health issue and treatment options with their primary care provider. [facility] Consultation note 08-25-2022 Note Date & Type Note Facility 08-25-2022 Note CONSULTATION PROCEDURE DATE: 08/25/2022 PREOPERATIVE DIAGNOSIS: Bilateral lumbar paravertebral spasms. POSTOPERATIVE DIAGNOSIS: Bilateral lumbar paravertebral spasms. PROCEDURE: Bilateral lumbar trigger point injections. Subsequent to obtaining informed consent, the patient was placed in the upright standing forward flexion position. Alcohol prep was used to sterilize the site. A 25 gauge needle with 0.125% Marcaine and 40 mg of Kenalog was placed inside each location for a total of two locations. Negative heme. Medication was injected slowly, in a fan-like pattern and patient tolerated the procedure well. She will be followed up in the clinic in three months. [facility] Consultation note 08-11-2022 Note Date & Type Note Facility 08-11-2022 Note CONSULTATION CONSULTATION DATE: 08/09/2022 HISTORY OF PRESENT ILLNESS: This is a 62-year-old female who returns to the clinic for a three month follow up for chronic lower back pain. She is complaining today of pain 8/10, described as a deep, stabbing, achy pain. She did have radiofrequency ablations of her lumbar area in March of 2022. She is increasing the amount of work that she is doing and feels that is very contributory to her pain. Lifting, standing, walking and bending greatly aggravate her pain. Medications include Percocet 5/325 b.i.d., Naprosyn 500 mg b.i.d, Adipex and a multivitamin regimen. She denies any new vasomotor weakness. Patient's REVIEW OF SYSTEMS / PAST MEDICAL HISTORY / ALLERGIES and IMAGES have been reviewed and noted in the chart. PHYSICAL EXAM: VITAL SIGNS: Blood pressure is 147/87. Heart rate is 75. Temperature is 97.5. She is 5'3 and weighs 80 kg. GENERAL IMPRESSION: Pleasant, appropriate, no acute distress. FOCUSED EXAM - BACK: Range of motion is functional in lateral rotation and flexion/extension. Compression over bilateral lumbar trapezius and erector spinae muscles reproduce patient's pain symptomatology with a positive jump response. No reproduction of spinal axial pain upon direct compression of the lumbar facets. Trigger points identified bilateral to lumbar trapezius muscles. Pee's point mildly tender to the right with negative FABERs and compression tests. MUSCULOSKELETAL: Motor is intact, 5/5 bilaterally. Patient ambulates steadily and unassisted. NEUROLOGICAL: Radicular sensory is intact, bilateral lower extremities, with reflexes 2/2. DIAGNOSIS: Bilateral lumbar trapezius spasms, chronic lower back pain, lumbar spondylosis. PLAN: We will refill her Percocet 5/325 b.i.d. and start her on Zanaflex 4 mg q.h.s. We will preauthorize for bilateral lumbar trigger point injections, and she will be brought back to the clinic in one week's time for those injections. U-Tox done in the office today. I did recommend heat, menthol heat rub, and the use of a tennis ball massage against the wall. Patient agrees with this plan and we will see her next week. [facility] Consultation note 05-12-2022 Note Date & Type Note Facility 05-12-2022 Note CONSULTATION PROCEDURE DATE: 05/12/2022 PREOPERATIVE DIAGNOSIS: Bilateral lumbar paravertebral spasms. POSTOPERATIVE DIAGNOSIS: Bilateral lumbar paravertebral spasms. PROCEDURE: Bilateral lumbar trigger point injections. Subsequent to obtaining informed consent, the patient was placed in the upright standing, forward flexion position. Alcohol prep was used to sterilize the site. A 25 gauge needle with 0.125% Marcaine and 40 mg of Kenalog with a total volume of 4 cc was divided into two locations. Needle was placed to rest inside the trigger zone and there was negative heme. Medication was injected in slowly and patient tolerated the procedure well. [facility] Consultation note 05-12-2022 Note Date & Type Note Facility 05-12-2022 Note CONSULTATION CONSULTATION DATE: 05/12/2022 HISTORY OF PRESENT ILLNESS: This is a pleasant, 62-year-old female returning to the clinic status post repeat bilateral RFA of L2, L3 and L4, L5 completed on 04/12/2022. The patient is slowing getting improving relief, but feels like a flare up diffusely across her back today. Lastly, she did sustain two bee stings in the area of her RFAs. She has been increasing her work hours in addition to work at home and feels increased activity has aggravated her pain. Activity such as prolonged standing, walking, housework, lifting, stairs and bending aggravate her pain. She does use heat daily, which is beneficial to her. Medications include Percocet 5/325 b.i.d., Tylenol Arthritis and Naprosyn 500 mg b.i.d. p.r.n. She denies any new pain symptomatology or vasomotor changes. Patient's REVIEW OF SYSTEMS / PAST MEDICAL HISTORY / ALLERGIES and IMAGES have been reviewed and they are noted on the chart. PHYSICAL EXAM: VITAL SIGNS: Blood pressure 157/97, heart rate is 80. Temperature is 97.7. She is 5'3 and weighs 85 kg. GENERAL IMPRESSION: Pleasant, appropriate, no acute distress. FOCUSED EXAM - BACK: Paravertebral muscles are spasmodic bilaterally with trigger points identified. Compression of these areas reproduces the patient's pain symptomatology. No reproduction of spinal axial pain along the lumbar facets indicative of successful RFA. Pee's point is non-tender bilaterally. MUSCULOSKELETAL: Motor is intact, 4/5 bilaterally. Decent muscle tone. She walks with a stable antalgic gait. NEUROLOGICAL: Radicular sensory is intact. Negative polyneuropathy. DIAGNOSIS: Lumbar paravertebral spasm, lumbar degenerative disc disease, lumbar spondylosis and chronic lower back pain. PLAN: Patient will receive bilateral lumbar trigger point injections, which she does consent to today here in the office. She is to continue with her heat on a daily basis in addition to stretches. I recommended magnesium glycinate 400 mg daily and to decrease heavy physical activity for the next couple days. We will see her in the office in three months' time unless otherwise indicated. Patient agrees with the plan. [facility] Consultation note 02-03-2022 Note Date & Type Note Facility 02-03-2022 Note CONSULTATION CONSULTATION DATE: 02/03/2022 This is a pleasant 62-year-old female returning to the clinic for a 3-month follow-up for her chronic lower back pain and osteoarthritic pain. She was last seen on 11/02/2021 which at that time she was having right-sided knee pain and an x-ray was suggested by Dr. Trent. The patient did not follow through with the x-ray as she was feeling better and she did not want the extra cost. She did follow through with Rheumatology appointment and saw Dr. Ayoub in which no treatment was initiated. She is waiting for a call following a new referral to a [employer] tender. The patient is complaining of 7 out of 10 back pain today. She does work 11 hours at a time, but not in consecutive days. She describes her pain as sharp and throbbing. Medications include Aleve, 2-3 times a day and Percocet 5/325 b.i.d. She does exercise at the swimming pool 3-4 times a week on her own time. She feels that her pain isn't being managed successfully at this time and is looking for other treatment options or modalities. REVIEW OF SYSTEMS, PAST MEDICAL HISTORY, ALLERGIES AND IMAGES: Have been reviewed and noted in the chart. PHYSICAL EXAM: VITAL SIGNS: Blood pressure 185/93, heart rate is 73, temperature is 97.7. Height is 5'3, weighs 85.4 kg. GENERAL APPEARANCE: Pleasant, appropriate, no acute distress. FOCUSED EXAM: BACK: Range of motion is guarded in lateral rotation and flexion/extension. Paravertebral muscles are non-spasmodic. Reproduction of the patient's spinoaxial pain and pain symptomatology to direct compression along the posterior elements of the lumbar facets of L2, L3 and L4, L5 bilaterally. Pain radiates to bilateral buttock. MUSCULOSKELETAL: Motor is intact 4/5 bilaterally. The patient has good muscle tone. NEUROLOGICAL: Patchy hypesthesia noted along bilateral lower legs at L3, L4 and L5 dermatomes bilaterally DIAGNOSIS: Lumbar degenerative disk, lumbar spondylosis, spinoaxial lower back pain, probably arthralgia and osteoarthritis. PLAN: The patient was instructed to stop the Aleve and she will be placed on Mobic 50 mg q. day. We will repeat radiofrequency ablations bilaterally to L2, L3 and L4, L5 starting with the right side. I did recommend bromalin supplements and information as given on that. The patient will be followed up in the clinic post-procedure. She agrees to move forward with that. [facility] Signed and Approved by: PATRIA BARFIELD . 02/10/2022 09:47:00 [facility] Summary Purpose Family History No Family History Records FoundNo Family History Records Found Advance Directives No Advanced Directives Records FoundNo Advanced Directives Records Found Additional Source Comments INFORMATION SOURCE (unrecogn ized section and content) DATE CREATED AUTHOR 01/06/2023 [facility] DATE CREATED AUTHOR AUTHOR'S ORGANIZ ATION 08/23/2023 [facility] FOR RECORDS PERTAINING TO PATIENTS WHO ARE OR HAVE BEEN ENROLLED IN A CHEMICAL DEPENDENCY/SUBSTANCEABUSE PROGRAM, SOME INFORMATION MAY BE OMITTED. This clinical summary was aggregated from multiple sources. Caution should be exercised in using it in the provision of clinical care. This summary normalizes information from multiple sources, and as a consequence, information in this document may materially change the coding, format and clinical context of patient data. In addition, data may be omitted in some cases. CLINICAL DECISIONS SHOULD BE BASED ON THE PRIMARY CLINICAL RECORDS. [facility]. provides no warranty or guarantee of the accuracy or completeness of information in this document.
--- NOTE | 2023-09-01 13:21 | MM_ITS ---
Patient Name: MARICRUZ BOLTON MR#: [id number] : 1960 Exam Date: 09/01/2023 Ordering Doctor: DR Luis Daniel Russell . RADIOLOGY REPORT PROCEDURE: MM TOMOSYNTHESIS SCREENING BI COMPARISON: MG MAMM SCREEN 3D GAVIN CAD, 06/09/2022. MAMMO GAVIN SCREEN, 10/23/2015. MAMMO GAVIN SCREEN, 10/29/2013. INDICATIONS: Screening Calculator Name NCI Breast Cancer Risk Assessment Tool 5 Year Breast Cancer Risk 1.60% Lifetime Breast Cancer Risk 6.10% Personal Breast Cancer No Personal Ovarian Cancer No Treatments None Family Cancers Aunt-maternal with breast cancer at age 59; Father with unknown cancer at age ~72. LOCATION: [facility] BREAST COMPOSITION: Scattered areas fibroglandular density. FINDINGS: DIAGNOSTIC CATEGORY 2--BENIGN FINDING: RIGHT BREAST: No significant suspicious finding. Scattered benign-appearing calcifications are present. Stable , chronic asymmetries. No significant change has occurred. LEFT BREAST: No significant suspicious finding. Scattered benign-appearing calcifications are present. Stable chronic asymmetries. No significant change has occurred. RECOMMENDATIONS: ROUTINE MAMMOGRAM AND CLINICAL EVALUATION IN 12 MONTHS. PLEASE NOTE: A NORMAL MAMMOGRAM DOES NOT EXCLUDE THE POSSIBILITY OF BREAST CANCER. A CLINICALLY SUSPICIOUS PALPABLE LUMP SHOULD BE BIOPSIED. Dictated by: Han Jackson M.D. on 09/01/2023 at 16:05 Approved by: Han Jackson M.D. on 09/01/2023 at 16:12
--- NOTE | 2023-09-01 13:22 | XR_ITS ---
The [address] [address] Patient Name: MARICRUZ BOLTON MRN: [id number] date: 1960 Sex: F Assigned Patient Location: [facility] Current Patient Location: [facility] Accession/Order Number: [id number] Exam Date: 09/01/2023 13:38 Report Date: 09/01/2023 19:15 At the request of: JEAN FARIAS Procedure: XR hip GAVIN EXAM: XR hip GAVIN HISTORY: Bilateral Primary Osteoarthritis M16.0 COMPARISON: Pelvis x-ray 07/15/2021. TECHNIQUE: AP frog lateral x-ray right hip and left hip. FINDINGS: Right hip: Normal joint space. Minimal spurring superior lateral femoral head unchanged with adjacent chondrocalcinosis also similar to previous. No erosive or destructive changes. Normal mineralization. No fracture or focal bone lesion. Remainder of visualized right pelvis including SI joints unremarkable. Left hip: Normal joint space with minimal spurring similar to previous. Normal mineralization, no focal bone lesion or fracture. Soft tissue calcific aeration medially felt to be vascular. XR/XR hip GAVIN IMPRESSION: No acute appearing abnormality. Minor spurring right left unchanged. Faint chondrocalcinosis on the right unchanged Electronically authenticated by: DANELLE VASQUEZ Date: 09/01/2023 19:15
--- NOTE | 2023-09-01 13:22 | XR_ITS ---
The [address] [address] Patient Name: MARICRUZ BOLTON MRN: [id number] date: 1960 Sex: F Assigned Patient Location: [facility] Current Patient Location: [facility] Accession/Order Number: [id number] Exam Date: 09/01/2023 13:38 Report Date: 09/01/2023 15:51 At the request of: JEAN FARIAS Procedure: XR foot RT 2V PROCEDURE: XR foot RT 2V DATE: 09/01/2023 1:38 PM EST COMPARISONS: None CLINICAL INDICATION: Chronic Foot Pain FINDINGS: There is no evidence of fractures or other acute osseous abnormalities. There is marked first metatarsal phalangeal degenerative change. This joint space is narrowed. There is osteophytic spurring. There is subchondral cyst formation and sclerosis. There is a small spur off the posterior inferior os calcis. No other abnormalities identified. XR/XR foot RT 2V IMPRESSION: Right foot radiographs show no evidence of acute abnormalities. Prominent first metatarsal phalangeal degenerative change. Heel spur. Electronically authenticated by: AKUA MARCUM Date: 09/01/2023 15:51
--- NOTE | 2023-09-01 13:23 | XR_ITS ---
The [address] [address] Patient Name: MARICRUZ BOLTON MRN: [facility]:[id number] date: 1960 Sex: F Assigned Patient Location: [facility] Current Patient Location: [facility] Accession/Order Number: [id number] Exam Date: 09/01/2023 13:38 Report Date: 09/01/2023 19:10 At the request of: JEAN FARIAS Procedure: XR lumbar spine 2-3V EXAM: XR lumbar spine 2-3V HISTORY: Lumbar Spondylosis M47.818 COMPARISON: 07/15/2021 plain films, MRI 12/09/2022. TECHNIQUE: AP, lateral L5-S1 spot x-ray lumbar spine. FINDINGS: 5 lumbar type vertebral bodies. No fracture or focal lytic bone destruction. Scoliosis convexity to the left increased since 07/15/2021. Straightening on the lateral view of loss of lordosis. No increasing subluxation. L1-L2: Moderate to severe disc space narrowing similar to previous. Vacuum disc again noted. Subchondral sclerosis superior endplate L2 slightly increased. Slightly increased anterior osteophytes. L2-L3: Moderate to severe disc space narrowing creased from previous with developing subchondral sclerosis and lucency in the adjacent endplates. L3-4: Disc space narrowing more prominent on the right similar to previous. Prominent anterior osteophytes slightly increased. L4-5: No significant disc space narrowing or spurring unchanged. L5-S1: Intact disc space with vacuum disc unchanged. Visualized sacrum intact. SI joints poorly visualized. XR/XR lumbar spine 2-3V IMPRESSION: 1. Scoliosis convexity to left slightly increased. Loss of lordosis with straightening on the lateral view. No increasing subluxation. 2. Multilevel degenerative disc disease most prominent in the upper lumbar spine. Significant progressive abnormality seen at L2-3 with increased disc space narrowing and developing subchondral sclerosis and lucency in the adjacent endplates. Question progression of degenerative disc disease versus discitis. 3. No fracture or acute bony abnormality. Electronically authenticated by: DANELLE VASQUEZ Date: 09/01/2023 19:10
--- NOTE | 2023-09-01 13:24 | XR_ITS ---
The [address] [address] Patient Name: MARICRUZ BOLTON MRN: [id number] date: 1960 Sex: F Assigned Patient Location: [facility] Current Patient Location: [facility] Accession/Order Number: [id number] Exam Date: 09/01/2023 13:38 Report Date: 09/01/2023 18:54 At the request of: JEAN FARIAS Procedure: XR hand GAVIN 2V EXAM: XR hand GAVIN 2V HISTORY: Bilateral Primary Osteoarthritis Hand M19.041 COMPARISON: 01/15/2020. TECHNIQUE: PA, lateral x-ray right hand and left hand FINDINGS: No fracture or bony erosion or destruction.. Marked joint space narrowing second metacarpophalangeal lead unchanged.. Remaining joint spaces are normal. There is minimal cystic change hamate, scaphoid more pronounced currently. Multiple foci periarticular calcification. Calcification third metacarpophalangeal joint unchanged, ulnar fibrocartilage and adjacent lunate lunatotriquetral joint increased. Minimal calcification of base of thumb and fifth metacarpal. Left hand: Normal mineralization. No fracture or bony erosion or destruction. No joint space narrowing. Periarticular calcification second metacarpophalangeal think increased from previous. Small subchondral cystic change trapezoid probably stable. Minimal. Calcification adjacent to the distal fifth metacarpal may be new. Increased prominence of calcification ulnar fibrocartilage, adjacent lunate and lunatotriquetral area.. XR/XR hand GAVIN 2V IMPRESSION: Negative for fracture or bony erosion or fracture right or left hand. Marked narrowing right second metacarpal joint space felt to be unchanged. No other joint space narrowing noted. . Multiple sites of periarticular calcification as noted above. Electronically authenticated by: DANELLE VASQUEZ Date: 09/01/2023 18:54
--- NOTE | 2023-09-01 13:25 | XR_ITS ---
The [address] [address] Patient Name: MARICRUZ BOLTON MRN: [id number] date: 1960 Sex: F Assigned Patient Location: [facility] Current Patient Location: [facility] Accession/Order Number: [id number] Exam Date: 09/01/2023 13:38 Report Date: 09/01/2023 19:18 At the request of: JEAN FARIAS Procedure: XR knee RT 2V EXAM: XR knee RT 2V HISTORY: Bilateral Primary Osteoarthritis Of Knee M17.0 COMPARISON: No prior plain films. MRI right knee 2017 TECHNIQUE: AP lateral right knee. FINDINGS: Joint spaces appear preserved. Mild spurring. Extensive diffuse chondrocalcinosis. No erosive or destructive changes or fracture. No joint effusion. XR/XR knee RT 2V IMPRESSION: Minor spurring. Diffuse chondrocalcinosis.. No effusion or significant joint space narrowing. Electronically authenticated by: DANELLE VASQUEZ Date: 09/01/2023 19:18
== END 2023-09-01 13:14 | disposition home or self-care (01) ==
LOC: MAMMO 13:14
PROVIDERS: PCP Family Medicine; Visit Provider Family Medicine
DX: Z12.31 Encounter for screening mammogram for malignant neoplasm of breast (principal); M17.0 Bilateral primary osteoarthritis of knee; M19.041 Primary osteoarthritis, right hand; M19.042 Primary osteoarthritis, left hand; M16.0 Bilateral primary osteoarthritis of hip; M47.816 Spondylosis without myelopathy or radiculopathy, lumbar region; M79.671 Pain in right foot; G89.29 Other chronic pain; Z80.3 Family history of malignant neoplasm of breast; Z80.8 Family history of malignant neoplasm of other organs or systems; M51.36 Other intervertebral disc degeneration, lumbar region
CPT/HCPCS: 72100; 73120; 73522; 73560; 73620; 77063; 77067

== ENCOUNTER 2023-09-07 12:52 | Outpatient (OUT) | payer MEDICARE, SELFPAY ==
--- OUTSIDE RECORDS SUMMARY | 2023-09-07 12:58 | XMS_ITS | CCD ---
Author Name Unknown Address [address] [address] [place] [address] Organization [facility] Care Team Providers Care Powder Mixer Name Role Phone TRENT ., DR HECTOR [...] Care Unavailable BARFIELD ., PATRIA Consulting Unavailable NADERER, DR LUIS DANIEL Nazario Primary Care Unavailable TRENT ., DR HECTOR Garcia Admitting Unavailable TRENT ., DR HECTOR Garcia Attending Unavailable LAKSHMIPATHY ., GRACIELA Attending Serena vailable LAKSHMIPATHY ., GRACIELA Admitting Serena vailable NADBETH, DR LUIS DANIEL Nazario Primary Care Unavailable LACEY, DR WILFRED Romero Consulting Unavailable LAKSHMIPATHY ., GRACIELA Consulting Serena vailable JARRETT, DR LUIS DANIEL Nazario Admitting Unavailable NADBETH, DR LUIS DANIEL Nazario Primary Care Unavailable NADERENick, DR LUIS DANIEL Nazario Consulting Unavailable NADERENick, DR LUIS DANIEL Nazario Attending Unavailable LAKSHMIPATHY ., GRACIELA Attending Serena vailable LAKSHMIPATHY ., GRACIELA Admitting Serena vailable NADBETH, DR LUIS DANIEL Nazario Primary Care Unavailable NADERENick, DR LUIS DANIEL Nazario Primary Care Unavailable NADERENick, DR LUIS DANIEL Nazario Attending Unavailable NADERER, DR LUIS DANIEL Nazario Admitting Unavailable WEST, [...] DR HECTOR Garcia Attending Unavailable LAKSHMIPATHY ., NARENDRANATH Consulting Serena vailable LAKSHMIPATHY ., NARENDLATISHAATH Attending Serena vailable LAKSHMIPATHY ., NARENDRANATH Admitting Serena vailable NADERER, DR LUIS DANIEL Nazario Primary Care Unavailable LAKSHMIPATHY ., NARENDRANATH Attending Serena vailable LAKSHMIPATHY ., NARENDLATISHAATH Admitting Serena vailable NADERER, DR LUIS DANIEL Nazario Primary Care Unavailable TRENT ., DR HECTOR Garcia Admitting Unavailable NADERER, DR LUIS DANIEL Nazario Primary Care Unavailable TRENT ., DR HECTOR Garcia Consulting Unavailable TRENT ., DR HECTOR Garcia Attending Unavailable JOANADANELLE DEL VALLE Consulting Unava ilable TRENT ., DR HECTOR [...] WILFRED RAHMAN Date: 2022-12-09 11:57 Normal [facility] Covid-19 PCR (CVDTBH)on 06-30 SARS-CoV-2 (COVID-19) RNA KEIRY+probe Ql (Unsp spec) Detected Critically abnormal NOT DETECTED [facility] Comment on above: Result Comment: This test is not yet approved or cleared by the [place] FDA. When there are no FDA-approved or cleared tests available, and other criteria are met, FDA can make tests available under an emergency access mechanism called an Emergency Use Authorization (EUA). The EUA for this test is supported by the Customer Field Representative of Health and Human Service's declaration that [...] longer be used). Performed By: #### [facility] ####[facility] [address] [place], [place] [address]Wt. Nelsy Corrigan MG MAMM SCREEN 3D GAVIN CADon 06-09-2022 MG MAMM SCREEN 3D GAVIN CAD Patient: MARICRUZ BOLTON Exam Date: 06/09/2022 : 1960 Gender:F Ordering : DR LUIS DANIEL FARIAS . Admission #: [id number] Family : Order #: [id number] CLICK HERE TO VIEW EXAM RADIOLOGY REPORT [...] unknown cancer at age 70. LOCATION: [facility] BREAST COMPOSITION: Scattered areas fibroglandular density. [...] MD on 06/10/2022 at 09:05 Normal [facility] CBC AUTO DIFFon 06-02-2022 BASO # 0.0 103/ul Normal 0.0-0.1 [facility] Comment on above: Performed By: #### C BC ####[facility] [address] [place] [address]Dr. Nelsy Corrigan Basophils/100 WBC (Bld) 0.6 % Normal 0.2-2.0 [facility] Comment on above: Performed By: #### C BC ####[facility] [address] [place], [place] [address]Dr. Nelsy Corrigan EO # 0.3 103/ul Normal 0.0-0.7 [facility] Comment on above: Performed By: #### C BC ####[facility] [address] [place], [place] [address]Dr. Nelsy Corrigan Eosinophils/100 WBC (Bld) 3.6 % Normal 0.9-7.0 [facility] Comment on above: Performed By: #### C BC ####[facility] [address] [place], [place] [address]Dr. Nelsy Corrigan Erythrocyte distribution width (RBC) [Ratio] 13.8 % Normal 11.0-15.0 [facility] Comment on above: Performed By: #### C BC ####[facility] [address] [place], [place] [address]Dr. Nelsy Corrigan Hematocrit (Bld) [Volume fraction] 37.2 % Normal 36.0-48.0 [facility] Comment on above: Performed By: #### C BC ####[facility] [address] [place], [place] [address]Dr. Nelsy Corrigan Hemoglobin (Bld) [Mass/Vol] 11.9 g/dL Critically low 12.0-16.0 [facility] Comment on above: Performed By: #### C BC ####[facility] [address] [place] [id number]. Nelsy Corrigan IG # 0.02 10e3/ul Normal 0.00-0.03 [facility] Comment on above: Performed By: #### C BC ####[facility] [address] [place] [id number]. Nelsy Corrigan IG % 0.3 % Normal 0.0-0.5 [facility] Comment on above: Performed By: #### C BC ####[facility] [address] [place] [address]Dr. Nelsy Corrigan LYMPH # 1.6 103/ul Normal 1.2-3.8 [facility] Comment on above: Performed By: #### C BC ####[facility] [address] [place] [address]Dr. Nelsy Corrigan Lymphocytes/100 WBC (Bld) 22.5 % Normal 20.5-60.0 [facility] Comment on above: Performed By: #### C BC ####[facility] [address] [place] [address]Dr. Nelsy Corrigan MANUAL DIFF REQ NO Normal [facility] Comment on above: Performed By: #### C BC ####[facility] [address] [place] [address]Dr. Nelsy Corrigan MCH (RBC) [Entitic mass] 29.3 pg Normal 26.7-34.0 [facility] Comment on above: Performed By: #### C BC ####[facility] [address] [place] [address]Dr. Nelsy Corrigan MCHC (RBC) [Mass/Vol] 32.0 g/dL Normal 29.9-35.2 [facility] Comment on above: Performed By: #### C BC ####[facility] [address] [place] [address]Dr. Nelsy Corrigan MCV (RBC) [Entitic vol] 91.6 fL Normal 81.0-99.0 [facility] Comment on above: Performed By: #### C BC ####[facility] [address] [place] [address]Dr. Nelsy Corrigan MONO # 0.5 103/ul Normal 0.3-0.8 [facility] Comment on above: Performed By: #### C BC ####[facility] [address] [place] [address]Dr. Nelsy Corrigan Monocytes/100 WBC (Bld) 7.6 % Normal 1.7-12.0 [facility] Comment on above: Performed By: #### C BC ####[facility] [address] [place] [address]Dr. Nelsy Corrigan NEUT # 4.5 103/ul Normal 1.4-6.5 [facility] Comment on above: Performed By: #### C BC ####[facility] [address] [place] [address]Dr. Nelsy Corrigan Neutrophils/100 WBC (Bld) 65.4 % Normal 43.0-75.0 [facility] Comment on above: Performed By: #### C BC ####[facility] [address] [place] [id number]. Nelsy Corrigan Platelet mean volume (Bld) [Entitic vol] 10.2 fL Normal 9.5-13.5 [facility] Comment on above: Performed By: #### C BC ####[facility] [address] [place] [address]Dr. Nelsy Corrigan PLT 341 103/ul Normal 150-450 [facility] Comment on above: Performed By: #### C BC ####[facility] [address] [place] [address]Dr. Nelsy Corrigan RBC 4.06 106/ul Critically low 4.20-5.40 [facility] Comment on above: Performed By: #### C BC ####[facility] [address] [place] [address]Dr. Nelsy Corrigan WBC 6.9 103/ul Normal 4.0-11.0 [facility] Comment on above: Performed By: #### C BC ####[facility] [address] [place] [address]Dr. Nelsy Corrigan GLYCOHEMOGLOBIN A1Con 2021 ADA RECOMMENDATION SEE BELOW Normal [facility] Comment on above: Result Comment: ADA RECOMMENDED LIMIT 4.0 - 6.0 ADA THERAPEUTIC TARGET < 7.0 ACTION SUGGESTED > 7.0 Performed By: #### A 1C ####[facility] [address] [place] [address]Dr. Nelsy Corrigan Glucose [Mass/Vol] 114 mg/dL Normal [facility] Comment on above: Performed By: #### A 1C ####[facility] [address] [place] [address]Dr. Nlesy Corrigan HbA1c (Bld) [Mass fraction] 5.6 % Normal 4.5-6.2 [facility] Comment on above: Performed By: #### A 1C ####[facility] [address] [place] [address]Dr. Nelsy Corrigan LIPID PROFILEon 06-02-2022 CHOL-HDL RATIO NORM SEE BELOW Normal [facility] Comment on above: Result Comment: 3.3 - 4.4 LOW RISK 4.4 - 7.1 AVERAGE RISK 7.1 - 11.0 MODERATE RISK >11.0 HIGH RISK Performed By: #### L IVRUI, BMP, TSH, LIPID #### [facility] [address] [place] [address] [address] Nelsy Corrigan Cholesterol [Mass/Vol] 169 mg/dL Normal <=200 [facility] Comment on above: Performed By: #### L IVRUI, BMP, TSH, LIPID #### [facility] [address] [place] [address] [address] Nelsy Corrigan Cholesterol in HDL [Mass/Vol] 50 mg/dL Normal 40-60 [facility] Comment on above: Performed By: #### L IVRUI, BMP, TSH, LIPID #### [facility] [address] [place] [address] [address] Nelsy Corrigan Cholesterol in LDL [Mass/Vol] 97.8 mg/dL Normal [facility] Comment on above: Performed By: #### L IVER, BMP, TSH, LIPID #### [facility] [address] [place] [address] [address] Nelsy Corrigan Cholesterol.total/Ch olesterol in HDL [Mass ratio] 3.4 {ratio} Normal [facility] Comment on above: Performed By: #### L IVER, BMP, TSH, LIPID #### [facility] [address] [place] [address] [address] Nelsy Corrigan HDL NORMAL > or = 60 mg/dl - LOW CARDIOVASCULAR RISK <40 mg/dl - HIGH CARDIOVASCULAR RISK Normal [facility] Comment on above: Performed By: #### L IVER, BMP, TSH, LIPID #### [facility] [address] [place] [address] [address] Nelsy Corrigan LDL CALC NORMAL SEE BELOW Normal [facility] Comment on above: Result Comment: <100 mg/dl OPTIMAL 100 - 129 mg/dl NEAR OR ABOVE OPTIMAL 130 - 159 mg/dl BORDERLINE HIGH 160 - 189 mg/dl HIGH >190 mg/dl VERY HIGH Performed By: #### L IVER, BMP, TSH, LIPID #### [facility] [address] [place] [address] [address] Nelsy Corrigan Triglyceride [Mass/Vol] 106 mg/dL Normal <=150 [facility] Comment on above: Performed By: #### L IVER, BMP, TSH, LIPID #### [facility] [address] [place] [address] [address] Nelsy Corrigan VLDL CALC 21.2 mg/dL Normal [facility] Comment on above: Performed By: #### L IVER, BMP, TSH, LIPID #### [facility] [address] [place] [address] [address] Nelsy Corrigan LIVER PROFILEon 06-02-2022 Albumin [Mass/Vol] 3.6 g/dL Normal 3.4-5.0 [facility] Comment on above: Performed By: #### L IVER, BMP, TSH, LIPID #### [facility] [address] [place] [address] [address] Nelsy Corrigan Albumin/Globulin [Mass ratio] 1.1 {ratio} Normal [facility] Comment on above: Performed By: #### L IVER, BMP, TSH, LIPID #### [facility] [address] [place] [address] [address] Nelsy Corrigan ALP [Catalytic activity/Vol] 61 U/L Normal 46-116 [facility] Comment on above: Performed By: #### L IVER, BMP, TSH, LIPID #### [facility] [address] [place] [address] [address] Nelsy Corrigan ALT [Catalytic activity/Vol] 27 U/L Normal 14-59 [facility] Comment on above: Performed By: #### L IVER, BMP, TSH, LIPID #### [facility] [address] [place] [address] Dr. Nelsy Corrigan AST [Catalytic activity/Vol] 20 U/L Normal 15-37 [facility] Comment on above: Performed By: #### L IVER, BMP, TSH, LIPID #### [facility] [address] [place] [address] Dr. Nelsy Corrigan BILI, CONJUGATED 0.1 mg/dL Normal 0.0-0.2 [facility] Comment on above: Performed By: #### L IVER, BMP, TSH, LIPID #### [facility] [address] [place] [address] Dr. Nelsy Corrigan Bilirubin [Mass/Vol] 0.4 mg/dL Normal 0.2-1.0 [facility] Comment on above: Performed By: #### L IVER, BMP, TSH, LIPID #### [facility] [address] [place] [address] Dr. Nelsy Corrigan Globulin (S) [Mass/Vol] 3.2 g/dL Normal [facility] Comment on above: Performed By: #### L IVER, BMP, TSH, LIPID #### [facility] [address] [place] [address] Dr. Nelsy Corrigan Protein [Mass/Vol] 6.8 g/dL Normal 6.4-8.2 [facility] Comment on above: Performed By: #### L IVER, BMP, TSH, LIPID #### [facility] [address] [place] [address] Dr. Nelsy Corrigan PROF CHEM 8 (BAS METB)on Anion gap [Moles/Vol] 9.7 mmol/L Normal [facility] Comment on above: Performed By: #### L IVER, BMP, TSH, LIPID #### [facility] [address] [place] [address] Dr. Nelsy Corirgan Calcium [Mass/Vol] 10.4 mg/dL Critically high 8.5-10.1 [facility] Comment on above: Performed By: #### L IVER, BMP, TSH, LIPID #### [facility] [address] [place] [address] Dr. Nelsy Corrigan Chloride [Moles/Vol] 101 mmol/L Normal 98-107 [facility] Comment on above: Performed By: #### L IVER, BMP, TSH, LIPID #### [facility] [address] [place] [address] Dr. Nelsy Corrigan CO2 [Moles/Vol] 28.1 mmol/L Normal 21.0-32.0 [facility] Comment on above: Performed By: #### L IVER, BMP, TSH, LIPID #### [facility] [address] [place] [address] Dr. Nelsy Corrigan Creatinine [Mass/Vol] 0.69 mg/dL Normal 0.55-1.02 [facility] Comment on above: Performed By: #### L IVER, BMP, TSH, LIPID #### [facility] [address] [place] [address] Dr. Nelsy Corrigan EGFR-AF ARGENTINE >60 Normal >=60 [facility] Comment on above: Performed By: #### L IVER, BMP, TSH, LIPID #### [facility] [address] [place] [address] Dr. Nelsy Corrigan EGFR-NON AF ARGENTINE >60 Normal >=60 [facility] Comment on above: Performed By: #### L IVER, BMP, TSH, LIPID #### [facility] [address] [place] [address] Dr. Nelsy Corrigan Glucose [Mass/Vol] 92 mg/dL Normal 74-106 [facility] Comment on above: Performed By: #### L IVER, BMP, TSH, LIPID #### [facility] [address] [place] [address] Dr. Nelsy Corrigan Potassium [Moles/Vol] 3.8 mmol/L Normal 3.5-5.1 [facility] Comment on above: Performed By: #### L IVER, BMP, TSH, LIPID #### [facility] [address] [place] [address] Dr. Nelsy Corrigan Sodium [Moles/Vol] 135 mmol/L Critically low 136-145 [facility] Comment on above: Performed By: #### L IVER, BMP, TSH, LIPID #### [facility] [address] [place] [address] Dr. Nelsy Corrigan Urea nitrogen [Mass/Vol] 24.0 mg/dL Critically high 7.0-18.0 [facility] Comment on above: Performed By: #### L IVER, BMP, TSH, LIPID #### [facility] [address] [place] [address] Dr. Nelsy Corrigan Urea nitrogen/Creatinine [Mass ratio] 34.8 mg/mg Normal [facility] Comment on above: Performed By: #### L IVER, BMP, TSH, LIPID #### [facility] [address] [place] [address] Dr. Nelsy Corrigan TSHon 06-02-2022 TSH 1.422 uIU/mL Normal 0.358-3.740 [facility] Comment on above: Performed By: #### L IVER, BMP, TSH, LIPID #### [facility] [address] [place] [address] Dr. Nelsy Corrigan VITAMIN B12on 06-02-2022 Cobalamin (Vitamin B12) [Mass/Vol] 878.0 pg/mL Normal 193.0-986.0 [facility] Comment on above: Performed By: #### V ITB12 #### [facility] [address] [place] [address] Dr. Nelsy Corrigan Covid-19 PCR (CVDTBH)on 03-31 SARS-CoV-2 (COVID-19) RNA KEIRY+probe Ql (Unsp spec) Not detected Normal NOT DETECTED [facility] Comment on above: Result Comment: This test is not yet approved or cleared by the [place] FDA. When there are no FDA-approved or cleared tests available, and other criteria are met, FDA can make tests available under an emergency access mechanism called an Emergency Use Authorization (EUA). The EUA for this test is supported by the [place] of Health and Human Service's (HHS's) declaration [...] consistent with SARS-CoV-2. Performed By: #### [facility] ####[facility] [address] [place], [place] [address]CdJan Corrigan Covid-19 PCR (CVDTB)on SARS-CoV-2 (COVID-19) RNA KEIRY+probe Ql (Unsp spec) Not detected Normal NOT DETECTED [facility] Comment on above: Result Comment: This test is not yet approved or cleared by the [place] FDA. When there are no FDA-approved or cleared tests available, and other criteria are met, FDA can make tests available under an emergency access mechanism called an Emergency Use Authorization (EUA). The EUA for this test is supported by the [place] of Health and Human Service's (HHS's) declaration [...] consistent with SARS-CoV-2. Performed By: #### C [facility] ####[facility] [address] [place], [place] [address]BpJan Corrigan Encounters Encounter Date Encounter Type Care [...] abnormal findings DR LUIS DANIEL FARIAS [facility] Start: 06-02-2022 End: 06-03-[address] LUIS DANIEL FARIAS Facility:[facility] Start: 06-02-2022 End: 06-03-2022 Encounter for general adult medical examination without abnormal findings DR LUIS DANIEL FARIAS Facility:[facility] Start: 05-12-2022 End: 05-13-2022 ambulatory PATRIA BARFIELD . Facility:[facility] Start: 04-16-2022 Encounter for preprocedural laboratory examination DR HECTOR TRENT . [facility] Start: 04-12-2022 End: 04-12-[address] [...] Facility:[facility] Payers Date Payer Category Payer Medicare [id number] 1961 Unknown [id number] 1960 Unknown [id number] 2.16.84 [id number] 1960 Unknown [id number] 2.16.84 0.1.659820.3.579.2.593 1960 Unknown [id number] 2.16.84 0.1.489173.3.579.2.593 1960 Unknown [id number] 2.16.84 0.1.130006.3.579.2.593 1960 Unknown [id number] 2.16.84 0.1.197299.3.579.2.593 1960 Unknown [id number] 2.16.84 0.1.997293.3.579.2.593 1960 Unknown [id number] 2.16.84 0.1.944707.3.579.2.593 1960 Unknown [id number] 2.16.84 0.1.039154.3.579.2.593 1960 Unknown [id number] 2.16.84 0.1.740322.3.579.2.593 1960 Unknown [id number] 2.16.84 0.1.730938.3.579.2.593 1960 Unknown [id number] 2.16.84 0.1.746258.3.579.2.593 1960 Unknown [id number] 2.16.84 0.1.289851.3.579.2.593 1958 Unknown [id number] 2.16.84 0.1.476150.3.579.2.593 1960 Unknown [id number] 2.16.84 0.1.110586.3.579.2.593 1958 Unknown [id number] 2.16.84 0.1.014260.3.579.2.593 1960 Unknown [id number] 2.16.84 0.1.953149.3.579.2.593 1958 Unknown [id number] 2.16.84 0.1.387022.3.579.2.593 1960 Unknown [id number] 2.16.84 0.1.260460.3.579.2.593 1960 Unknown [id number] 2.16.84 0.1.902337.3.579.2.1259 Consultation note 11-24-2022 Note Date & Type [...] our patients to inform us about any xcll-iyy-amnumcz medications or herbal remedies/nutritional supplements/alternative remedies. 2. [...] options with their primary care provider. [facility] Consultation note 08-25-2022 Note Date & [...] in the clinic in three months. [facility] Consultation note 08-11-2022 Note Date & [...] we will see her next week. [facility] Consultation note 05-12-2022 Note Date & [...] and patient tolerated the procedure well. [facility] Consultation note 05-12-2022 Note Date & [...] indicated. Patient agrees with the plan. [facility] Consultation note 02-03-2022 Note Date & [...] call following a new referral to a [place] human resources office assistant. The patient is complaining of 7 out [...] She agrees to move forward with that. [facility] Signed and Approved by: PATRIA BARFIELD . 02/10/2022 09:47:00 [facility] Summary Purpose Family History No Family History Records FoundNo Family History Records Found Advance Directives No Advanced Directives Records FoundNo Advanced Directives Records Found Additional Source Comments INFORMATION SOURCE (unrecogn ized section and content) DATE CREATED AUTHOR 01/06/2023 [facility] DATE CREATED AUTHOR AUTHOR'S ORGANIZ ATION 08/23/2023 [facility] FOR RECORDS PERTAINING TO PATIENTS WHO ARE [...] BE BASED ON THE PRIMARY CLINICAL RECORDS. [facility] [employer] [facility]. provides no warranty or guarantee of the accuracy or completeness of information in this document.
--- NOTE | 2023-09-07 13:14 | P.CN_ITS ---
Consult Note: HPI Data of Consult Patient: known to practice within the last 3 years Requesting Physician: Juana Seaman NP Primary Care Provider: Luis Daniel Russell MD Consult Narrative Reason for consult: low back pain Narrative: Mesha Jung a pleasant 63 year old female presents to the office for evaluation of chronic low back and bilateral buttock pain, over the last 7 weeks patient has noticed increase in her pain as well as weakness of right leg. Patient went to her PCP who did imaging and the lumbar xray reveals progressive degenerative disc disease vs discitis. Pain today 6/10 sore aching and sharp pain. Patient having trouble with all activities and has had to cut back her hours at work recently. Reports yesterday she had chills, no fever, mild stress incontinence at times. cc:: CC: Juana Seaman NP Review of Systems ROS Status of ROS 10 or more systems reviewed and unremark able except as noted in history and below Musculoskeletal Reports: back pain PFSH PFSH Medical History S/P extracorporeal shock wave therapy ?Z98.890 - Other specified postprocedural states (ICD-10) Low back pain ?M54.50 - Low back pain, unspecified (ICD-10) Osteoarthritis ?M19.90 - Unspecified osteoarthritis, unspecified site (ICD-10) Anemia ?D64.9 - Anemia, unspecified (ICD-10) Hiatal hernia ?K44.9 - Diaphragmatic hernia without obstruction or gangrene (ICD-10) Kidney stone ?N20.0 - Calculus of kidney (ICD-10) Former smoker ?Z87.891 - Personal history of nicotine dependence (ICD-10) Hypertension ?I10 - Essential (primary) hypertension (ICD-10) Surgical History Hx of appendectomy ?Z90.49 - Acquired absence of other specified parts of digestive tract (ICD- 10) H/O hemorrhoidectomy ?Z98.890 - Other specified postprocedural states (ICD-10) 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 (ICD-10) H/O section ?Z98.891 - History of uterine scar from previous surgery (ICD-10) H/O: hysterectomy ?Z90.710 - Acquired absence of both cervix and uterus (ICD-10) Meds Home Medications and Allergies Home Medications Medication Instructions Recorded Confirmed Type calcium 100 mg capsule mg PO QDAY 01/19/23 History cbd extract BID 01/19/23 History cholecalciferol (vitamin D3) 50 50 mcg PO DAILY 01/19/23 01/24/23 History mcg (2,000 unit) tablet (D3 DOTS) lisinopril 20 1 tab PO BID 01/19/23 01/24/23 History mg-hydrochlorothiazide 25 mg tablet multivitamin 1 tab PO DAILY 01/19/23 01/24/23 History naproxen 500 mg tablet 500 mg PO BID 01/24/23 01/24/23 History Allergies Allergy/AdvReac Type Severity Reaction Status Date / Time No Known Drug Allergies Allergy Verified 01/24/23 07:10 Exam Constitutional Documenting provider has reviewed patient's vital signs: yes Common normals: no apparent distress, oriented x3, healthy appearing, alert and well nourished General appearance: cooperative HENMT Common normals: normocephalic, hearing grossly normal bilaterally and moist oral mucous membranes Head and scalp: normocephalic Eye Common normals: PERRL Pupil: PERRL Neck & C-Spine Common normals: full ROM General: normal visual inspection Chest Common normals: inspection of chest normal Respiratory Common normals: normal respiratory effort, no retractions and no use of accessory muscles Back & Pelvis Thoracic spine/upper back: ROM limited and pain with ROM Lumbar spine/lower back: ROM limited, pain with ROM and straight leg raise positive right Sacroiliac joints: SI joint(s) abnormal (bilateral pain over PSIS, positive thigh thrust, EMMANUEL, niko L>R) Other: decreased reflexes in RLE sensation intact strength 4/5 in RLE Extremity Common normals: normal to inspection and full ROM Right lower extremity: knee joint (pain with weight bearing and ROM) Left lower extremity: knee joint (pain with weight bearing and ROM) Neuro Common normals: oriented x3, CN's II-XII intact bilaterally, moves all extremities, no focal motor deficits, no sensory deficits noted and deep tendon reflexes 2+ bilaterally Sensorium/orientation: alert Gait (neuro): antalgic Motor exam: no movement abnormalities noted and strength abnormal Deep tendon reflexes: Rt Patellar (L4): 1+ and Rt Ankle (S1): 1+ Psych Common normals: mental status grossly normal, thought process normal, cooperative, affect normal, speech normal and activity/motor behavior normal Speech: normal speech Thought process: normal thought process Assessment and Plan Assessment and Plan (1) Lumbar spondylosis: (2) Lumbar radiculopathy: (3) Discitis: (4) Bilateral sacroiliitis: Assessment and Plan: bilateral positive EMMANUEL, gaenslens, thigh thrust, and SI compression. Left>Right (5) Muscle spasm: (6) Fibromyalgia: Plan STAT MRI with and without contrast to rule out discitis CBC CRP sed rate discussed red flag findings and ER recommendations f/u based on results
== END 2023-09-07 12:53 | disposition home or self-care (01) ==
LOC: PM 12:53
PROVIDERS: PCP Family Medicine; Visit Provider Nurse Practitioner
DX: M47.816 Spondylosis without myelopathy or radiculopathy, lumbar region (principal); M54.16 Radiculopathy, lumbar region; M46.1 Sacroiliitis, not elsewhere classified; M62.838 Other muscle spasm; M79.7 Fibromyalgia
CPT/HCPCS: G0463

== ENCOUNTER 2023-09-07 13:50 | Outpatient (OUT) | payer MEDICARE, SELFPAY ==
--- OUTSIDE RECORDS SUMMARY | 2023-09-07 13:56 | XMS_ITS | CCD ---
Author Name Unknown Address [address] [place] [address] Organization [facility] Care Team Providers Care General Counselor Name Role Phone TRENT ., DR HECTOR [...] Sanon Consulting Unavailable NADERER, DR LUIS DANIEL Nazairo Consulting Unavailable NADBETH, DR LUIS DANIEL Nazario [...] PATRIA Consulting Unavailable TRENT ., DR HECTOR Garica Attending Unavailable LAKSHMIPATHY ., NARENDRANATH Consulting Serena [...] WILFRED RAHMAN Date: 2022-12-09 11:57 Normal [facility] Covid-19 PCR (CVDTBH)on 06-30 SARS-CoV-2 (COVID-19) RNA KEIRY+probe Ql (Unsp spec) Detected Critically abnormal NOT DETECTED [facility] Comment on above: Result Comment: This test is not yet approved or cleared by the [place] FDA. When there are no FDA-approved or cleared tests available, and other criteria are met, FDA can make tests available under an emergency access mechanism called an Emergency Use Authorization (EUA). The EUA for this test is supported by the [place] Service Attendant of Health and Human Service's declaration that [...] longer be used). Performed By: #### [facility] ####[facility] [address] [place], [place] [address]Gh. Nelsy Corrigan MG MAMM SCREEN 3D GAVIN CADon 06-09-2022 MG MAMM SCREEN 3D GAVIN CAD Patient: MARICRUZ BOLTON Exam Date: 06/09/2022 : 1960 Gender:F Ordering : DR LUIS DANIEL FARIAS . Admission #: [id number] Family : Order #: [id number] CLICK HERE TO VIEW EXAM RADIOLOGY REPORT [...] unknown cancer at age 70. LOCATION: [facility] BREAST COMPOSITION: Scattered areas fibroglandular density. FINDINGS: [...] MD on 06/10/2022 at 09:05 Normal [facility] CBC AUTO DIFFon 06-02-2022 BASO # 0.0 103/ul Normal 0.0-0.1 [facility] Comment on above: Performed By: #### C BC ####[facility] [address] [place] [address]Dr. Nelsy Corrigan Basophils/100 WBC (Bld) 0.6 % Normal 0.2-2.0 [facility] Comment on above: Performed By: #### C BC ####[facility] [address] [place], [place] [address]Dr. Nelsy Corrigan EO # 0.3 103/ul Normal 0.0-0.7 [facility] Comment on above: Performed By: #### C BC ####[facility] [address] [place], [place] [address]Dr. Nelsy Corrigan Eosinophils/100 WBC (Bld) 3.6 % Normal 0.9-7.0 [facility] Comment on above: Performed By: #### C BC ####[facility] [address] [place], [place] [address]Dr. Nelsy Corrigan Erythrocyte distribution width (RBC) [Ratio] 13.8 % Normal 11.0-15.0 [facility] Comment on above: Performed By: #### C BC ####[facility] [address] [place], [place] [address]Dr. Nelsy Corrigan Hematocrit (Bld) [Volume fraction] 37.2 % Normal 36.0-48.0 [facility] Comment on above: Performed By: #### C BC ####[facility] [address] [place], [place] [address]Dr. Nelsy Corrigan Hemoglobin (Bld) [Mass/Vol] 11.9 g/dL Critically low 12.0-16.0 [facility] Comment on above: Performed By: #### C BC ####[facility] [address] [place] [id number]. Nelsy Corrigan IG # 0.02 10e3/ul Normal 0.00-0.03 [facility] Comment on above: Performed By: #### C BC ####[facility] [address] [place] [id number]. Nelsy Corrigan IG % 0.3 % Normal 0.0-0.5 [facility] Comment on above: Performed By: #### C BC ####[facility] [address] [place] [address]Dr. Nelsy Corrigan LYMPH # 1.6 103/ul Normal 1.2-3.8 [facility] Comment on above: Performed By: #### C BC ####[facility] [address] [place] [address]Dr. eNlsy Corrigan Lymphocytes/100 WBC (Bld) 22.5 % Normal 20.5-60.0 [facility] Comment on above: Performed By: #### C BC ####[facility] [address] [place] [address]Dr. Nelsy Corrigan MANUAL DIFF REQ NO Normal [facility] Comment on above: Performed By: #### C BC ####[facility] [address] [place] [address]Dr. Nelsy Corrigan MCH (RBC) [Entitic mass] 29.3 pg Normal 26.7-34.0 [facility] Comment on above: Performed By: #### C BC ####[facility] [address] [place] [id number]. Nelsy Corrigan MCHC (RBC) [Mass/Vol] 32.0 g/dL Normal 29.9-35.2 [facility] Comment on above: Performed By: #### C BC ####[facility] [address] [place] [address]Dr. Nelsy Corrigan MCV (RBC) [Entitic vol] 91.6 fL Normal 81.0-99.0 [facility] Comment on above: Performed By: #### C BC ####[facility] [address] [place] [id number]. Nelsy Corrigan MONO # 0.5 103/ul Normal 0.3-0.8 [facility] Comment on above: Performed By: #### C BC ####[facility] [address] [place] [id number]. Nelsy Corrigan Monocytes/100 WBC (Bld) 7.6 % Normal 1.7-12.0 [facility] Comment on above: Performed By: #### C BC ####[facility] [address] [place] [id number]. Nelsy Corrigan NEUT # 4.5 103/ul Normal 1.4-6.5 [facility] Comment on above: Performed By: #### C BC ####[facility] [address] [place] [address]Dr. Nelsy Corrigan Neutrophils/100 WBC (Bld) 65.4 % Normal 43.0-75.0 [facility] Comment on above: Performed By: #### C BC ####[facility] [address] [place] [id number]. Nelsy Corrigan Platelet mean volume (Bld) [Entitic vol] 10.2 fL Normal 9.5-13.5 [facility] Comment on above: Performed By: #### C BC ####[facility] [address] [place] [id number]. Nelsy Corrigan PLT 341 103/ul Normal 150-450 [facility] Comment on above: Performed By: #### C BC ####[facility] [address] [place] [id number]. Nelsy Corrigan RBC 4.06 106/ul Critically low 4.20-5.40 [facility] Comment on above: Performed By: #### C BC ####[facility] [address] [place] [id number]. Nelsy Corrigan WBC 6.9 103/ul Normal 4.0-11.0 [facility] Comment on above: Performed By: #### C BC ####[facility] [address] [place] [id number]. Nelsy Corrigan GLYCOHEMOGLOBIN A1Con 2021 ADA RECOMMENDATION SEE BELOW Normal [facility] Comment on above: Result Comment: ADA RECOMMENDED LIMIT 4.0 - 6.0 ADA THERAPEUTIC TARGET < 7.0 ACTION SUGGESTED > 7.0 Performed By: #### A 1C ####[facility] [address] [place] [address]Dr. Nelsy Corrigan Glucose [Mass/Vol] 114 mg/dL Normal [facility] Comment on above: Performed By: #### A 1C ####[facility] [address] [place] [address]Dr. Nelsy Corrigan HbA1c (Bld) [Mass fraction] 5.6 % Normal 4.5-6.2 [facility] Comment on above: Performed By: #### A 1C ####[facility] [address] [place] [address]Dr. Nelsy Corrigan LIPID PROFILEon 06-02-2022 CHOL-HDL RATIO NORM SEE BELOW Normal [facility] Comment on above: Result Comment: 3.3 - 4.4 LOW RISK 4.4 - 7.1 AVERAGE RISK 7.1 - 11.0 MODERATE RISK >11.0 HIGH RISK Performed By: #### L IVRUI, BMP, TSH, LIPID #### [facility] [address] [place] [address] [address] Nelsy Corrigan Cholesterol [Mass/Vol] 169 mg/dL Normal <=200 [facility] Comment on above: Performed By: #### L IVRUI, BMP, TSH, LIPID #### [facility] [address] [place] [address] [address] Nelsy Corrigan Cholesterol in HDL [Mass/Vol] 50 mg/dL Normal 40-60 [facility] Comment on above: Performed By: #### L IVRUI, BMP, TSH, LIPID #### [facility] [address] [place] [address] [address] Nelsy Corrigan Cholesterol in LDL [Mass/Vol] 97.8 mg/dL Normal [facility] Comment on above: Performed By: #### L IVER, BMP, TSH, LIPID #### [facility] [address] [place] [address] [address] Nelsy Corrigan Cholesterol.total/Ch olesterol in HDL [Mass ratio] 3.4 {ratio} Normal [facility] Comment on above: Performed By: #### L IVER, BMP, TSH, LIPID #### [facility] [address] [place] [address] [address] Nelsy Corrigan HDL NORMAL > or = 60 mg/dl - LOW CARDIOVASCULAR RISK <40 mg/dl - HIGH CARDIOVASCULAR RISK Normal [facility] Comment on above: Performed By: #### L IVER, BMP, TSH, LIPID #### [facility] [address] [place] [address] [address] Nelsy Corrigan LDL CALC NORMAL SEE BELOW Normal [facility] Comment on above: Result Comment: <100 mg/dl OPTIMAL 100 - 129 mg/dl NEAR OR ABOVE OPTIMAL 130 - 159 mg/dl BORDERLINE HIGH 160 - 189 mg/dl HIGH >190 mg/dl VERY HIGH Performed By: #### L IVER, BMP, TSH, LIPID #### [facility] [address] [place] [address] [address] Nelsy Corrigan Triglyceride [Mass/Vol] 106 mg/dL Normal <=150 [facility] Comment on above: Performed By: #### L IVER, BMP, TSH, LIPID #### [facility] [address] [place] [address] [address] Nelsy Corrigan VLDL CALC 21.2 mg/dL Normal [facility] Comment on above: Performed By: #### L IVER, BMP, TSH, LIPID #### [facility] [address] [place] [address] [address] Nelsy Corrigan LIVER PROFILEon 06-02-2022 Albumin [Mass/Vol] 3.6 g/dL Normal 3.4-5.0 [facility] Comment on above: Performed By: #### L IVER, BMP, TSH, LIPID #### [facility] [address] [place] [address] [address] Nelsy Corrigan Albumin/Globulin [Mass ratio] 1.1 {ratio} Normal [facility] Comment on above: Performed By: #### L IVER, BMP, TSH, LIPID #### [facility] [address] [place] [address] [address] Nelsy Corrigan ALP [Catalytic activity/Vol] 61 U/L Normal 46-116 [facility] Comment on above: Performed By: #### L IVER, BMP, TSH, LIPID #### [facility] [address] [place] [address] [address] Nelsy Corrigan ALT [Catalytic activity/Vol] 27 U/L Normal 14-59 [facility] Comment on above: Performed By: #### L IVER, BMP, TSH, LIPID #### [facility] [address] [place] [address] Dr. Nelsy Corrigan AST [Catalytic activity/Vol] 20 U/L Normal 15-37 [facility] Comment on above: Performed By: #### L IVER, BMP, TSH, LIPID #### [facility] [address] [place] [address] Dr. Nelsy Corrigan BILI, CONJUGATED 0.1 mg/dL Normal 0.0-0.2 [facility] Comment on above: Performed By: #### L IVER, BMP, TSH, LIPID #### [facility] [address] [place] [address] Dr. Nelsy Corrigan Bilirubin [Mass/Vol] 0.4 mg/dL Normal 0.2-1.0 [facility] Comment on above: Performed By: #### L IVER, BMP, TSH, LIPID #### [facility] [address] [place] [address] Dr. Nelsy Corrigan Globulin (S) [Mass/Vol] 3.2 g/dL Normal [facility] Comment on above: Performed By: #### L IVER, BMP, TSH, LIPID #### [facility] [address] [place] [address] Dr. Nelsy Corrigan Protein [Mass/Vol] 6.8 g/dL Normal 6.4-8.2 [facility] Comment on above: Performed By: #### L IVER, BMP, TSH, LIPID #### [facility] [address] [place] [address] Dr. Nelsy Corrigan PROF CHEM 8 (BAS METB)on Anion gap [Moles/Vol] 9.7 mmol/L Normal [facility] Comment on above: Performed By: #### L IVER, BMP, TSH, LIPID #### [facility] [address] [place] [address] Dr. Nelsy Corrigan Calcium [Mass/Vol] 10.4 mg/dL Critically high 8.5-10.1 [facility] Comment on above: Performed By: #### L IVER, BMP, TSH, LIPID #### [facility] [address] [place] [address] Dr. Nelsy Corrigan Chloride [Moles/Vol] 101 mmol/L Normal 98-107 [facility] Comment on above: Performed By: #### L IVER, BMP, TSH, LIPID #### [facility] [address] [place] [address] Dr. Nelsy Corrigan CO2 [Moles/Vol] 28.1 mmol/L Normal 21.0-32.0 [facility] Comment on above: Performed By: #### L IVER, BMP, TSH, LIPID #### [facility] [address] [place] [address] Dr. Nelsy Corrigan Creatinine [Mass/Vol] 0.69 mg/dL Normal 0.55-1.02 [facility] Comment on above: Performed By: #### L IVER, BMP, TSH, LIPID #### [facility] [address] [place] [address] Dr. Nelsy Corrigan EGFR-AF BOLIVIAN >60 Normal >=60 [facility] Comment on above: Performed By: #### L IVER, BMP, TSH, LIPID #### [facility] [address] [place] [address] Dr. Nelsy Corrigan EGFR-NON AF BOLIVIAN >60 Normal >=60 [facility] Comment on above: Performed By: #### L IVER, BMP, TSH, LIPID #### [facility] [address] [place] [address] Dr. Nelsy Corrigan Glucose [Mass/Vol] 92 mg/dL Normal 74-106 [facility] Comment on above: Performed By: #### L IVER, BMP, TSH, LIPID #### [facility] [address] [place] [address] Dr. Nelsy Corrigan Potassium [Moles/Vol] 3.8 mmol/L Normal 3.5-5.1 [facility] Comment on above: Performed By: #### L IVER, BMP, TSH, LIPID #### [facility] [address] [place] [address] Dr. Nelsy Corrigan Sodium [Moles/Vol] 135 mmol/L Critically low 136-145 [facility] Comment on above: Performed By: #### L IVER, BMP, TSH, LIPID #### [facility] [address] [place] [address] Dr. Nelsy Corrigan Urea nitrogen [Mass/Vol] 24.0 mg/dL Critically high 7.0-18.0 [facility] Comment on above: Performed By: #### L IVER, BMP, TSH, LIPID #### [facility] [address] [place] [address] Dr. Nelsy Corrigan Urea nitrogen/Creatinine [Mass ratio] 34.8 mg/mg Normal [facility] Comment on above: Performed By: #### L IVER, BMP, TSH, LIPID #### [facility] [address] [place] [address] Dr. Nelsy Corrigan TSHon 06-02-2022 TSH 1.422 uIU/mL Normal 0.358-3.740 [facility] Comment on above: Performed By: #### L IVER, BMP, TSH, LIPID #### [facility] [address] [place] [address] Dr. Nelsy Corrigan VITAMIN B12on 06-02-2022 Cobalamin (Vitamin B12) [Mass/Vol] 878.0 pg/mL Normal 193.0-986.0 [facility] Comment on above: Performed By: #### V ITB12 #### [facility] [address] [place] [address] Dr. Nelsy Corrigan Covid-19 PCR (CVDTBH)on 03-31 SARS-CoV-2 (COVID-19) RNA KEIRY+probe Ql (Unsp spec) Not detected Normal NOT DETECTED [facility] Comment on above: Result Comment: This test is not yet approved or cleared by the [place] FDA. When there are no FDA-approved or cleared tests available, and other criteria are met, FDA can make tests available under an emergency access mechanism called an Emergency Use Authorization (EUA). The EUA for this test is supported by the [place] of Health and Human Service's (HHS's) declaration [...] consistent with SARS-CoV-2. Performed By: #### [facility] ####[facility] [address] [place], [place] [address]JwJan Corrigan Covid-19 PCR (CVDTB)on SARS-CoV-2 (COVID-19) RNA KEIRY+probe Ql (Unsp spec) Not detected Normal NOT DETECTED [facility] Comment on above: Result Comment: This test is not yet approved or cleared by the [place] FDA. When there are no FDA-approved or cleared tests available, and other criteria are met, FDA can make tests available under an emergency access mechanism called an Emergency Use Authorization (EUA). The EUA for this test is supported by the [place] of Health and Human Service's (HHS's) declaration [...] consistent with SARS-CoV-2. Performed By: #### C [facility] ####[facility] [address] [place], [place] [address]GgJan Corrigan Encounters Encounter Date Encounter Type Care [...] abnormal findings DR LUIS DANIEL FARIAS [facility] Start: 06-02-2022 End: 06-03-[address] LUIS DANIEL FARIAS Facility:[facility] Start: 06-02-2022 End: 06-03-2022 Encounter for general adult medical examination without abnormal findings DR LUIS DANIEL FARIAS Facility:[facility] Start: 05-12-2022 End: 05-13-2022 ambulatory PATRIA BARFIELD . Facility:[facility] Start: 04-16-2022 Encounter for preprocedural laboratory examination DR HECTOR TRENT . [facility] Start: 04-12-2022 End: 04-12-[address] LUIS DANIEL FARIAS Facility:[facility] Start: 04-11-2022 End: 04-12-[address] LUIS DANIEL FARIAS Facility:[facility] Start: 04-11-2022 End: 04-12-2022 Encounter for preprocedural laboratory examination DR LUIS DANIEL FARIAS Facility:[facility] Start: 04-05-2022 End: 04-05-[address] HECTOR TRENT . Facility:[facility] Start: 04-01-2022 End: 04-02-[address] LUIS DANIEL FARIAS Facility:[facility] Start: 03-09-2022 End: 03-10-[address] HECTOR RTENT . Facility:[facility] Start: 02-22-2022 End: 02-22-[address] HECTOR TRENT . Facility:[facility] Start: 02-03-2022 End: 02-04-[address] HECTOR TRENT . Facility:[facility] Payers Date Payer Category Payer Medicare [id number] 1961 Unknown [id number] 1960 Unknown [id number] 2.16.84 [id number] 1960 Unknown [id number] 2.16.84 0.1.638040.3.579.2.593 1960 Unknown [id number] 2.16.84 0.1.421307.3.579.2.593 1960 Unknown [id number] 2.16.84 0.1.718174.3.579.2.593 1960 Unknown [id number] 2.16.84 0.1.586425.3.579.2.593 1960 Unknown [id number] 2.16.84 0.1.244947.3.579.2.593 1960 Unknown [id number] 2.16.84 0.1.569136.3.579.2.593 1960 Unknown [id number] 2.16.84 0.1.638449.3.579.2.593 1960 Unknown [id number] 2.16.84 0.1.572771.3.579.2.593 1960 Unknown [id number] 2.16.84 0.1.910035.3.579.2.593 1960 Unknown [id number] 2.16.84 0.1.899897.3.579.2.593 1960 Unknown [id number] 2.16.84 0.1.781985.3.579.2.593 1960 Unknown [id number] 2.16.84 0.1.519937.3.579.2.593 1958 Unknown [id number] 2.16.84 0.1.687188.3.579.2.593 1958 Unknown [id number] 2.16.84 0.1.086848.3.579.2.593 1960 Unknown [id number] 2.16.84 0.1.622537.3.579.2.593 1958 Unknown [id number] 2.16.84 0.1.938140.3.579.2.593 1958 Unknown [id number] 2.16.84 0.1.082533.3.579.2.593 1960 Unknown [id number] 2.16.84 0.1.541269.3.579.2.1259 Consultation note 11-24-2022 Note Date & Type [...] our patients to inform us about any qifl-ngm-umnuavf medications or herbal remedies/nutritional supplements/alternative remedies. 2. [...] options with their primary care provider. [facility] Consultation note 08-25-2022 Note Date & Type [...] in the clinic in three months. [facility] Consultation note 08-11-2022 Note Date & Type [...] we will see her next week. [facility] Consultation note 05-12-2022 Note Date & Type [...] and patient tolerated the procedure well. [facility] Consultation note 05-12-2022 Note Date & Type [...] indicated. Patient agrees with the plan. [facility] Consultation note 02-03-2022 Note Date & Type [...] call following a new referral to a [employer] associate. The patient is complaining of 7 out [...] She agrees to move forward with that. [facility] Signed and Approved by: PATRIA BARFIELD . 02/10/2022 09:47:00 [facility] Summary Purpose Family History No Family History Records FoundNo Family History Records Found Advance Directives No Advanced Directives Records FoundNo Advanced Directives Records Found Additional Source Comments INFORMATION SOURCE (unrecogn ized section and content) DATE CREATED AUTHOR 01/06/2023 [facility] DATE CREATED AUTHOR AUTHOR'S ORGANIZ ATION 08/23/2023 [facility] FOR RECORDS PERTAINING TO PATIENTS WHO [...] BE BASED ON THE PRIMARY CLINICAL RECORDS. [facility] [employer] [facility]. provides no warranty or guarantee of the accuracy or completeness of information in this document.
[2023-09-07 14:28] LABS: C Reactive Protein <0.50 mg/dL (<=0.50)
[2023-09-07 14:53] LABS: Basophils Absolute Auto 0.1 10^3/uL (0.0-0.1); Basophils Percent Auto 0.8 % (0.2-2.0); Eosinophils Absolute Auto 0.1 10^3/uL (0.0-0.7); Eosinophils Percent Auto 2.3 % (0.9-7.0); Hemoglobin 12.4 g/dL (12.0-16.0); Immature Granulocytes Abs Auto 0.01 10^3/uL (0.00-0.03); Immature Granulocytes Pct Auto 0.2 % (0.0-0.5); Lymphocytes Percent Auto 33.2 % (20.5-60.0); Mean Corpuscular HGB Conc 32.6 g/dL (29.9-35.2); Mean Corpuscular Hemoglobin 28.8 pg (26.7-34.0); Mean Corpuscular Volume 88.2 fL (81.0-99.0); Mean Platelet Volume 9.8 fL (9.5-13.5); Monocytes Absolute Auto 0.5 10^3/uL (0.3-0.8); Monocytes Percent Auto 7.5 % (1.7-12.0); Neutrophils Absolute Auto 3.4 10^3/uL (1.4-6.5); Platelet Count 391 10^3/uL (150-450); Red Blood Count 4.31 10^6/uL (4.20-5.40); Red Cell Distribution Width 13.2 % (11.0-15.0)
[2023-09-07 15:05] LABS: Erythrocyte Sedimentation Rate 17 mm/hr (<=30)
== END 2023-09-07 13:51 | disposition home or self-care (01) ==
LOC: LAB 13:51
PROVIDERS: PCP Family Medicine; Visit Provider Nurse Practitioner
DX: M46.40 Discitis, unspecified, site unspecified (principal)
CPT/HCPCS: 36415; 85025; 85652; 86140

== ENCOUNTER 2023-09-15 13:29 | Outpatient (OUT) | payer MEDICARE, SELFPAY ==
--- NOTE | 2023-09-15 13:32 | MR_ITS ---
[address] [address] Patient Name: MARICRUZ BOLTON MRN: [id number] date: 1960 Sex: F Assigned Patient Location: LAB Current Patient Location: LAB Accession/Order Number: [id number] Exam Date: 09/15/2023 13:45 Report Date: 09/16/2023 06:08 At the request of: ZACKARY RASHID Procedure: MR lumbar spine wo/w con MR lumbar spine wo/w con INDICATION: Right Lower Extremity Weakness, Lumbar Radiculopathy. TECHNIQUE: Multiplanar MR imaging of the lumbar spine was performed. IV contrast: The type and volume of contrast material is documented in the medical record. COMPARISON: None available. FINDINGS: SEGMENTATION: There are 7 cervical, 12 thoracic, and 5 lumbar type vertebrae. POSTOPERATIVE CHANGES: None. ALIGNMENT: There is levoconvex scoliosis of the lumbar spine with apex at the L3 level. There is normal AP alignment. VERTEBRAE: No evidence of acute fractures or significant losses of vertebral body heights. There are mild Modic type endplate changes at multiple levels. The bone marrow signal is mildly heterogeneous. CONUS: The conus terminates at the L1 level. No suspicious enhancement of the cauda equina. INTERVERTEBRAL DISCS: There is advanced degenerative disc disease at L1-L2, L2-L3, and L3-L4. There are Modic type I reactive endplate changes at L1-L2. There are Modic type I and III reactive endplate changes at L2-L3. There is moderate disc space narrowing and disc desiccation at T10-T11 and T11-T12. Mild disc space narrowing and disc desiccation at L4-L5 and L5-S1. CONGENITAL: None. T11-T12: There is a small broad-based disc bulge that effaces the thecal sac. Mild facet arthropathy. No significant spinal canal stenosis. Mild foraminal narrowing. T12-L1: Slight bulging of the posterior disc. No spinal canal or foraminal stenosis. L1-L2: There is a moderate broad-based disc bulge that effaces the thecal sac. Mild spinal canal narrowing. Mild narrowing of the left neural foramen. The right neural foramen is patent. L2-L3: There is a moderate posterior disc osteophyte complex that effaces the thecal sac. Bilateral facet arthropathy and ligamentum flavum thickening. This constellation of findings results in moderate spinal canal stenosis with significant subarticular narrowing. There is moderate bilateral foraminal stenosis. L3-L4: Posterior disc osteophyte complex effaces the thecal sac. Bilateral facet arthropathy and ligamentum flavum thickening. Mild to moderate spinal canal narrowing with significant subarticular narrowing on the right. Moderate to severe stenosis of the right neural foramen. Mild narrowing of the left neural foramen. L4-L5: There is a posterior disc osteophyte complex that effaces the thecal sac. Bilateral facet arthropathy and ligamentum flavum thickening. This constellation of findings results in severe spinal canal stenosis. Mild foraminal narrowing. L5-S1: Small posterior disc bulge. Bilateral facet arthropathy. No spinal canal stenosis. Mild to moderate narrowing of the left neural foramen. The right neural foramen is patent. PARASPINAL SOFT TISSUES: The paraspinal soft tissues are unremarkable. OTHER: Multiple cysts within the kidneys. MR/MR lumbar spine wo/w con IMPRESSION: There is levoconvex scoliosis of the lumbar spine. Advanced degenerative disc disease at L1-L2 through L3-L4. Severe spinal canal stenosis at L4-L5 due to posterior disc osteophyte complex, facet arthropathy, and ligamentum flavum thickening. There is moderate spinal canal stenosis at L2-L3 and mild to moderate spinal canal stenosis at L3-L4. Multilevel degenerative changes contribute to multilevel foraminal stenosis which is described level by level above. Electronically authenticated by: ILANA CHARLES Date: 09/16/2023 06:08
[2023-09-15 13:42] LABS: Estimated GFR (African America >60 (>=60); Estimated GFR (Non-African Ame >60 (>=60)
== END 2023-09-15 13:30 | disposition home or self-care (01) ==
LOC: LAB 13:29
PROVIDERS: PCP Family Medicine; Visit Provider Nurse Practitioner
DX: R53.1 Weakness (principal); M54.16 Radiculopathy, lumbar region; M51.36 Other intervertebral disc degeneration, lumbar region
CPT/HCPCS: 36415; 72158; 82565; A9575

== ENCOUNTER 2023-09-21 11:35 | Outpatient (OUT) | payer MEDICARE, SELFPAY ==
--- OUTSIDE RECORDS SUMMARY | 2023-09-21 11:39 | XMS_ITS | CCD ---
Author Name Unknown Address [address] [place] [id number] Organization [facility] Care Team Providers Care Sign Letterer Name Role Phone TRENT ., DR HECTOR Garcia Attending Unavailable BARFIELD ., PATRIA Consulting Unavailable TRENT ., DR HECTOR Garcia Admitting Unavailable NADERER, DR LUIS DANIEL Nazario Primary Care Unavailable TRENT ., DR HECTOR Garcia Attending Unavailable TRENT ., DR HECTOR Garcia Admitting Unavailable TRENT ., DR HECTOR Garcia Consulting Unavailable NADERER, DR LUIS DANIEL Nazario Primary Care Unavailable BARFIELD ., PATRIA Consulting Unavailable NADERER, DR LUIS DANIEL Nazario Primary Care Unavailable TRENT ., DR HECTOR Garcia Admitting Unavailable TRENT ., DR HECTOR Garcia Attending Unavailable LAKSHMIPATHY ., GRACIELA Attending Serena vailable LAKSHMIPATHY ., GRACIELA Admitting Serena vailable NADERENick, DR LUIS DANIEL Nazario Primary Care Unavailable LACEY, DR WILFRED Romero Consulting Unavailable LAKSHMIPATHY ., GRACIELA Consulting Serena vailable NADERENick, DR LUIS DANIEL Nazario Admitting Unavailable NADERENick, DR LUIS DANIEL Nazario Primary Care Unavailable NADERENick, DR LUIS DANIEL Nazario Consulting Unavailable NADERER, DR LUIS DANIEL Nazario Attending Unavailable LAKSHMIPATHY ., NARENDGRANT Attending Serena vailable LAKSHMIPATHY ., GRACIELA Admitting Serena vailable NADERENick, DR LUIS DANIEL Nazario Primary Care Unavailable NADERER, DR LUIS DANIEL Nazario Primary Care Unavailable NADERER, DR LUIS DANIEL Nazario Attending Unavailable NADERER, DR LUIS DANIEL Nazario Admitting Unavailable MIDDLE AMANA, DR RACHEL Sanon Consulting Unavailable NADERER, DR LUIS DANIEL Nazario Consulting Unavailable NADERENick, [...] DR HECTOR Garcia Attending Unavailable LAKSHMIPATHY ., NARVENUS Consulting Serena vailable LAKSHMIPATHY ., NARROSANNAATH Attending Serena vailable LAKSHMIPATHY ., NARROSANNAATH Admitting Serena vailable NADERER, DR LUIS DANIEL Nazario Primary Care Unavailable LAKSHMIPATHY ., NARROSANNAATH Attending Serena vailable LAKSHMIPATHY ., GRACIELA Admitting Serena vailable NADERER, DR LUIS DANIEL Nazario Primary Care Unavailable TRENT ., DR HECTOR Garcia Admitting Unavailable NADERER, DR LUIS DANIEL Nazario Primary Care Unavailable TRENT ., DR HECTOR Garcia Consulting Unavailable TRENT ., DR HECTOR Garcia Attending Unavailable JOANA, DANELLE LOCKETT Consulting Unava ilable TRENT ., DR HECTOR [...] Attending Unavailable NADERER, LUIS DANIEL Attending Unavailable Irvingr Luis Daniel FRY Primary Care Provider Medications Current Medications Medication Drug Class(es) Dates Sig (Normalized) Sig (Original) DULoxetine 30 mg delayed release oral capsule (1 source) Serotonin and Norepinephrine Reuptake Inhibitor take 1 capsule by mouth in the morning DULoxetine (Cymbalta) [address] capsule Take 30 mg by mouth in the morning. 0 Active hydroCHLOROthiazide 25 mg / lisinopril 20 mg oral tablet (1 source) Thiazide Diuretic, Angiotensin Converting Enzyme Inhibitor take 1 tablet by mouth in the morning lisinopril-hydroCH LOROthiazide 20-25 MG tablet Take 1 tablet by mouth in the morning and 1 tablet before bedtime. 0 Active naproxen 500 mg delayed release oral tablet (1 source) Nonsteroidal Anti-inflammatory Drug take 1 tablet by mouth in the morning naproxen (EC Naprosyn) 500 MG EC tablet Take 500 mg by mouth in the morning and 500 mg in the evening. Take with meals. Do not crush, chew, or split.. 0 Active phentermine hydrochloride 37.5 mg oral tablet (1 source) Sympathomimetic Amine Anorectic Start: take 1 tablet by mouth in the morning phentermine (Adipex-P) 37.5 MG tablet Indications: Obesity (BMI 30-39.9) Take 1 tablet (37.5 mg) by mouth in the morning. 30 tablet 0 08/22/2023 Active vitamin b12 1 mg/ml injectable solution (1 source) Vitamin B12 cyanocobalamin (Vitamin B-12) 1000 MCG/ML injection Inject 1,000 mcg into the shoulder, thigh, or buttocks every 30 (thirty) days 0 Active Problems Active Problems Problem Classification Problem Date Documented Date Episodic/Chronic Diabetes mellitus without complication (1 source) Prediabetes; Translations: [Prediabetes] Onset: 08-22-2023 08-22-2023 Episodic Esophageal disorders (1 source) Gastroesophageal reflux disease; Translations: [Gastro-esophageal reflux disease without esophagitis] Onset: 08-22-2023 08-22-2023 Chronic Essential hypertension (1 source) Benign essential hypertension; Translations: [Essential (primary) hypertension] Onset: 08-22-2023 08-22-2023 Chronic Nutritional deficiencies (1 source) Cobalamin deficiency; Translations: [Deficiency of other specified B group vitamins] Onset: 08-22-2023 08-22-2023 Episodic Osteoarthritis (3 sources) Primary coxarthrosis, bilateral; Translations: [Bilateral primary osteoarthritis of hip] Onset: 08-22-2023 08-22-2023 Chronic Other connective tissue disease (1 source) Fibromyalgia; Translations: [Fibromyalgia] Onset: 08-22-2023 08-22-2023 Episodic Other connective tissue disease (1 source) Chronic pain of right foot; Translations: [Pain in right foot] Onset: 08-22-2023 08-22-2023 Episodic Other nervous system disorders (4 sources) Other [...] Spondylosis; intervertebral disc disorders; other back problems (8 sources) Spondylosis without myelopathy or radiculopathy, lumbar region; Translations: [Other intervertebral disc degeneration, lumbar region] Onset: 04-12-2022 Resolved: 08-22-2023 Chronic Spondylosis; intervertebral disc disorders; other back problems (6 sources) Intervertebral disc disorders with radiculopathy, lumbar region; Translations: [Radiculopathy, lumbar region] Onset: 08-25-2022 Episodic Unclassified (4 sources) LOW BACK PAIN, UNSPECIFIED; Translations: [LOW BACK PAIN, UNSPECIFIED] Onset: 11-30-2022 Unclassified (3 sources) CONTACT W/AND (SUSP) EXPOS COVID-19; Translations: [CONTACT W/AND (SUSP) EXPOS COVID-19] Onset: 04-16-2022 Varicose veins of lower extremity (1 source) Varicose veins of lower extremity; Translations: [Varicose veins of bilateral lower extremities with pain] Onset: 08-22-2023 08-22-2023 Episodic Viral infection (1 source) COVID-19; Translations: [COVID-19] [...] Test Name Value Interpretation Reference Range Facility ALL C REACTIVE PROTEINon CRP [Mass/Vol] mg/L NINF - 0.50 mg/dL [facility] MRI LSPINE WO CONon 12-10-19 MRI [place] CON EXAMINATION: MRI LSPINE WO CON HISTORY: Low back pain ; chronic [...] Date: 2022-12-09 11:57 Normal [facility] Covid-19 PCR (CVDTB)on 06-30 SARS-CoV-2 (COVID-19) RNA KEIRY+probe Ql (Unsp spec) Detected Critically abnormal NOT DETECTED [facility] Comment on above: Result Comment: This test is not yet approved or cleared by the [place] FDA. When there are no FDA-approved or cleared tests available, and other criteria are met, FDA can make tests available under an emergency access mechanism called an Emergency Use Authorization (EUA). The EUA for this test is supported by the [place] of Health and Human Service's declaration that [...] longer be used). Performed By: #### C [facility] ####[facility] [address] [place], [place] [address]Mn. Nelsy Corrigan MG MAMM SCREEN 3D GAVIN CADon 06-09-2022 MG MAMM SCREEN 3D GAVIN CAD Patient: MARICRUZ BOLTON Exam Date: 06/09/2022 : 1960 Gender:F Ordering : DR LUIS DANIEL FARIAS . Admission #: [id number] Family : Order #: [id number] CLICK HERE TO VIEW EXAM RADIOLOGY REPORT [...] at age 70. LOCATION: [facility] BREAST COMPOSITION: Scattered areas fibroglandular density. [...] 06/10/2022 at 09:05 Normal [facility] CBC AUTO DIFFon 06-02-2022 BASO # 0.0 103/ul Normal 0.0-0.1 [facility] Comment on above: Performed By: #### C BC ####[facility] [address] [place] [address]Dr. Nelsy Corrigan Basophils/100 WBC (Bld) 0.6 % Normal 0.2-2.0 [facility] Comment on above: Performed By: #### C BC ####[facility] [address] [place] [id number] Corrigan EO # 0.3 103/ul Normal 0.0-0.7 [facility] Comment on above: Performed By: #### C BC ####[facility] [address] [place] [id number]. Nelsy Corrigan Eosinophils/100 WBC (Bld) 3.6 % Normal 0.9-7.0 [facility] Comment on above: Performed By: #### C BC ####[facility] [address] [place] [address]Dr. Nelsy Corrigan Erythrocyte distribution width (RBC) [Ratio] 13.8 % Normal 11.0-15.0 [facility] Comment on above: Performed By: #### C BC ####[facility] [address] [place], [place] [address]Dr. Nelsy Corrigan Hematocrit (Bld) [Volume fraction] 37.2 % Normal 36.0-48.0 [facility] Comment on above: Performed By: #### C BC ####[facility] [address] [place], [place] [address]Dr. Nelsy Corrigan Hemoglobin (Bld) [Mass/Vol] 11.9 g/dL Critically low 12.0-16.0 [facility] Comment on above: Performed By: #### C BC ####[facility] [address] [place], [place] [address]Dr. Nelsy Corrigan IG # 0.02 10e3/ul Normal 0.00-0.03 [facility] Comment on above: Performed By: #### C BC ####[facility] [address] [place], [place] [address]Dr. Nelsy Corrigan IG % 0.3 % Normal 0.0-0.5 [facility] Comment on above: Performed By: #### C BC ####[facility] [address] [place], [place] [address]Dr. Nelsy Corrigan LYMPH # 1.6 103/ul Normal 1.2-3.8 [facility] Comment on above: Performed By: #### C BC ####[facility] [address] [place], [place] [address]Dr. Nelsy Corrigan Lymphocytes/100 WBC (Bld) 22.5 % Normal 20.5-60.0 [facility] Comment on above: Performed By: #### C BC ####[facility] [address] [place], [place] [address]Dr. Nelsy Corrigan MANUAL DIFF REQ NO Normal [facility] Comment on above: Performed By: #### C BC ####[facility] [address] [place] [id number]. Nelsy Corrigan MCH (RBC) [Entitic mass] 29.3 pg Normal 26.7-34.0 [facility] Comment on above: Performed By: #### C BC ####[facility] [address] [place] [id number]. Nelsy Corrigan MCHC (RBC) [Mass/Vol] 32.0 g/dL Normal 29.9-35.2 [facility] Comment on above: Performed By: #### C BC ####[facility] [address] [place] [address]Dr. Nelsy Shekhar MCV (RBC) [Entitic vol] 91.6 fL Normal 81.0-99.0 [facility] Comment on above: Performed By: #### C BC ####[facility] [address] [place], [place] [address]Dr. Nelsy Corrigan MONO # 0.5 103/ul Normal 0.3-0.8 [facility] Comment on above: Performed By: #### C BC ####[facility] [address] [place], [place] [address]Dr. Teresemarisa Corrigan Monocytes/100 WBC (Bld) 7.6 % Normal 1.7-12.0 [facility] Comment on above: Performed By: #### C BC ####[facility] [address] [place], [place] [address]Dr. Nelsy Corrigan NEUT # 4.5 103/ul Normal 1.4-6.5 [facility] Comment on above: Performed By: #### C BC ####[facility] [address] [place], [place] [address]Dr. Nelsy Corrigan Neutrophils/100 WBC (Bld) 65.4 % Normal 43.0-75.0 [facility] Comment on above: Performed By: #### C BC ####[facility] [address] [place], [place] [address]Dr. Nelsy Corrigan Platelet mean volume (Bld) [Entitic vol] 10.2 fL Normal 9.5-13.5 [facility] Comment on above: Performed By: #### C BC ####[facility] [address] [place] [id number]. Nelsy Corrigan PLT 341 103/ul Normal 150-450 [facility] Comment on above: Performed By: #### C BC ####[facility] [address] [place] [id number]. Nelsy Corrigan RBC 4.06 106/ul Critically low 4.20-5.40 [facility] Comment on above: Performed By: #### C BC ####[facility] [address] [place] [id number]. Nelsy Corrigan WBC 6.9 103/ul Normal 4.0-11.0 [facility] Comment on above: Performed By: #### C BC ####[facility] [address] [place] [address]Dr. Nelsy Corrigan GLYCOHEMOGLOBIN A1Con 2021 ADA RECOMMENDATION SEE BELOW Normal [facility] Comment on above: Result Comment: ADA RECOMMENDED LIMIT 4.0 - 6.0 ADA THERAPEUTIC TARGET < 7.0 ACTION SUGGESTED > 7.0 Performed By: #### A 1C ####[facility] [address] [place] [address]Dr. Nelsy Corrigan Glucose [Mass/Vol] 114 mg/dL Normal [facility] Comment on above: Performed By: #### A 1C ####[facility] [address] [place] [id number]. Nelsy Corrigan HbA1c (Bld) [Mass fraction] 5.6 % Normal 4.5-6.2 [facility] Comment on above: Performed By: #### A 1C ####[facility] [address] [place] [address]Dr. Nelsy Corrigan LIPID PROFILEon 06-02-2022 CHOL-HDL RATIO NORM SEE BELOW Normal [facility] Comment on above: Result Comment: 3.3 - 4.4 LOW RISK 4.4 - 7.1 AVERAGE RISK 7.1 - 11.0 MODERATE RISK >11.0 HIGH RISK Performed By: #### L IVER, BMP, TSH, LIPID #### [facility] [address] [place] [address] [address] Nelsy Corrigan Cholesterol [Mass/Vol] 169 mg/dL Normal <=200 [facility] Comment on above: Performed By: #### L IVER, BMP, TSH, LIPID #### [facility] [address] [place] [address] [address] Nelsy Corrigan Cholesterol in HDL [Mass/Vol] 50 mg/dL Normal 40-60 [facility] Comment on above: Performed By: #### L IVER, BMP, TSH, LIPID #### [facility] [address] [place] [address] [address] Nelsy Corrigan Cholesterol in LDL [Mass/Vol] 97.8 mg/dL Normal [facility] Comment on above: Performed By: #### L IVER, BMP, TSH, LIPID #### [facility] [address] [address] [address] Nelsy Corrigan Cholesterol.total/Ch olesterol in HDL [Mass ratio] 3.4 {ratio} Normal [facility] Comment on above: Performed By: #### L IVER, BMP, TSH, LIPID #### [facility] [address] [place] [address] [address] Nelsy Corrigan HDL NORMAL > or = 60 mg/dl - LOW CARDIOVASCULAR RISK <40 mg/dl - HIGH CARDIOVASCULAR RISK Normal [facility] Comment on above: Performed By: #### L IVER, BMP, TSH, LIPID #### [facility] [address] [place] [address] [address] Nelsy Corrigan LDL CALC NORMAL SEE BELOW Normal [facility] Comment on above: Result Comment: <100 mg/dl OPTIMAL 100 - 129 mg/dl NEAR OR ABOVE OPTIMAL 130 - 159 mg/dl BORDERLINE HIGH 160 - 189 mg/dl HIGH >190 mg/dl VERY HIGH Performed By: #### L IVER, BMP, TSH, LIPID #### [facility] [address] [address] [address] Nelsy Corrigan Triglyceride [Mass/Vol] 106 mg/dL Normal <=150 [facility] Comment on above: Performed By: #### L IVER, BMP, TSH, LIPID #### [facility] [address] [place] [address] Dr. Nelsy Corrigan VLDL CALC 21.2 mg/dL Normal [facility] Comment on above: Performed By: #### L IVER, BMP, TSH, LIPID #### [facility] [address] [place] [address] Dr. Nelsy Corrigan LIVER PROFILEon 06-02-2022 Albumin [Mass/Vol] 3.6 g/dL Normal 3.4-5.0 [facility] Comment on above: Performed By: #### L IVER, BMP, TSH, LIPID #### [facility] [address] [place] [address] Dr. Nelsy Corrigan Albumin/Globulin [Mass ratio] 1.1 {ratio} Normal [facility] Comment on above: Performed By: #### L IVER, BMP, TSH, LIPID #### [facility] [address] [place] [address] Dr. Nelsy Corrigan ALP [Catalytic activity/Vol] 61 U/L Normal 46-116 [facility] Comment on above: Performed By: #### L IVER, BMP, TSH, LIPID #### [facility] [address] [place] [address] Dr. Nelsy Corrigan ALT [Catalytic activity/Vol] 27 U/L Normal 14-59 [facility] Comment on above: Performed By: #### L IVER, BMP, TSH, LIPID #### [facility] [address] [place] [address] Dr. Nelsy Corrigan AST [Catalytic activity/Vol] 20 U/L Normal 15-37 [facility] Comment on above: Performed By: #### L IVER, BMP, TSH, LIPID #### [facility] [address] [place] [address] Dr. Nelsy Corrigan BILI, CONJUGATED 0.1 mg/dL Normal 0.0-0.2 [facility] Comment on above: Performed By: #### L IVER, BMP, TSH, LIPID #### [facility] [address] [place] [address] Dr. Nelsy Corrigan Bilirubin [Mass/Vol] 0.4 mg/dL Normal 0.2-1.0 [facility] Comment on above: Performed By: #### L IVER, BMP, TSH, LIPID #### [facility] [address] [address] [address] Nelsy Corrigan Globulin (S) [Mass/Vol] 3.2 g/dL Normal [facility] Comment on above: Performed By: #### L IVER, BMP, TSH, LIPID #### [facility] [address] [address] [address] Nelsy Corrigan Protein [Mass/Vol] 6.8 g/dL Normal 6.4-8.2 [facility] Comment on above: Performed By: #### L IVER, BMP, TSH, LIPID #### [facility] [address] [place] [address] Dr. Nelsy Corrigan PROF CHEM 8 (BAS METB)on Anion gap [Moles/Vol] 9.7 mmol/L Normal [facility] Comment on above: Performed By: #### L IVER, BMP, TSH, LIPID #### [facility] [address] [address] [address] Nelsy Corrigan Calcium [Mass/Vol] 10.4 mg/dL Critically high 8.5-10.1 [facility] Comment on above: Performed By: #### L IVER, BMP, TSH, LIPID #### [facility] [address] [address] [address] Nelsy Corrigan Chloride [Moles/Vol] 101 mmol/L Normal 98-107 [facility] Comment on above: Performed By: #### L IVER, BMP, TSH, LIPID #### [facility] [address] [address] [address] Nelsy Corrigan CO2 [Moles/Vol] 28.1 mmol/L Normal 21.0-32.0 [facility] Comment on above: Performed By: #### L IVER, BMP, TSH, LIPID #### [facility] [address] [address] [address] Nelsy Corrigan Creatinine [Mass/Vol] 0.69 mg/dL Normal 0.55-1.02 [facility] Comment on above: Performed By: #### L IVER, BMP, TSH, LIPID #### [facility] [address] [address] [address] Nelsy Corrigan EGFR-AF GUINEAN >60 Normal >=60 [facility] Comment on above: Performed By: #### L IVER, BMP, TSH, LIPID #### [facility] [address] [address] [address] Nelsy Corrigan EGFR-NON AF GUINEAN >60 Normal >=60 [facility] Comment on above: Performed By: #### L IVER, BMP, TSH, LIPID #### [facility] [address] [place] [address] Dr. Nelsy Corrigan Glucose [Mass/Vol] 92 mg/dL Normal 74-106 [facility] Comment on above: Performed By: #### L IVER, BMP, TSH, LIPID #### [facility] [address] [address] [address] Nelsy Corrigan Potassium [Moles/Vol] 3.8 mmol/L Normal 3.5-5.1 [facility] Comment on above: Performed By: #### L IVER, BMP, TSH, LIPID #### [facility] [address] [place] [address] Dr. Nelsy Corrigan Sodium [Moles/Vol] 135 mmol/L Critically low 136-145 [facility] Comment on above: Performed By: #### L IVER, BMP, TSH, LIPID #### [facility] [address] [place] [address] Dr. Nelsy Corrigan Urea nitrogen [Mass/Vol] 24.0 mg/dL Critically high 7.0-18.0 [facility] Comment on above: Performed By: #### L IVER, BMP, TSH, LIPID #### [facility] [address] [place] [address] Dr. Nelsy Corrigan Urea nitrogen/Creatinine [Mass ratio] 34.8 mg/mg Normal [facility] Comment on above: Performed By: #### L IVER, BMP, TSH, LIPID #### [facility] [address] [place], [place] [address] Dr. Nelsy Corrigan TSHon 06-02-2022 TSH 1.422 uIU/mL Normal 0.358-3.740 [facility] Comment on above: Performed By: #### L IVER, BMP, TSH, LIPID #### [facility] [address] [place], [place] [address] Dr. Nelsy Corrigan VITAMIN B12on 06-02-2022 Cobalamin (Vitamin B12) [Mass/Vol] 878.0 pg/mL Normal 193.0-986.0 [facility] Comment on above: Performed By: #### V ITB12 #### [facility] [address] [place], [place] [address] Dr. Nelsy Corrigan Covid-19 PCR (CVDTBH)on 03-31 SARS-CoV-2 (COVID-19) RNA KEIRY+probe Ql (Unsp spec) Not detected Normal NOT DETECTED [facility] Comment on above: Result Comment: This test is not yet approved or cleared by the [place] FDA. When there are no FDA-approved or cleared tests available, and other criteria are met, FDA can make tests available under an emergency access mechanism called an Emergency Use Authorization (EUA). The EUA for this test is supported by the [place] of Health and Human Service's (HHS's) declaration [...] consistent with SARS-CoV-2. Performed By: #### C VDTBH ####[facility] [address] [place], [place] [address]Dr. Nelsy Corrigan Covid-19 PCR (CVDTBH)on SARS-CoV-2 (COVID-19) RNA KEIRY+probe Ql (Unsp spec) Not detected Normal NOT DETECTED [facility] Comment on above: Result Comment: This test is not yet approved or cleared by the [place] FDA. When there are no FDA-approved or cleared tests available, and other criteria are met, FDA can make tests available under an emergency access mechanism called an Emergency Use Authorization (EUA). The EUA for this test is supported by the Bottle Washing [employer] Operator of Health and Human Service's (HHS's) declaration [...] consistent with SARS-CoV-2. Performed By: #### C [facility] ####[facility] [address] [place], [place] [address]Nu. Nelsy Corrigan Encounters Encounter Date Encounter Type Care Provider Facility Start: 09-07-2023 [facility] Result Encounter Generic External Data Provider [facility] External Department Unsolicited Start: 09-07-2023 [facility] Result Encounter Generic External Data Provider [facility] External Department Unsolicited Start: 08-22-2023 End: 08-22-2023 ambulatory LUIS DANIEL [...] without abnormal findings DR LUIS DANIEL FARIAS [facility] Start: 06-02-2022 End: 06-03-[address] LUIS DANIEL FARIAS Facility:[facility] Start: 06-02-2022 End: 06-03-2022 Encounter for general adult medical examination without abnormal findings DR LUIS DANIEL FARIAS Facility:[facility] Start: 05-12-2022 End: 05-13-2022 ambulatory APTRIA BARFIELD . Facility:[facility] Start: 04-16-2022 Encounter for preprocedural laboratory examination DR HECTOR TRENT . [facility] Start: 04-12-2022 End: 04-12-[address] LUIS DANIEL FRAIAS Facility:[facility] Start: 04-11-2022 End: 04-12-[address] [...] 02-04-[address] HECTOR TRENT . Facility:[facility] Procedures Date Procedure Procedure Detail Performing Clinician Start: 09-07-2023 ALL C REACTIVE PROTEIN Generic External Data Provider Start: 09-01-2023 Mammography Generic Pr ovider Plan of Treatment Date Care Activity Detail Author Start: 09-01-2024 Screening for malign ant neoplasm of breast Mammogram [facility] Start: 12-05-2023 End: 12-05-2023 Patient encounter procedure 12/05/2023 1:15 PM EDT Office Visit [facility] [address] [place] [address] Luis Daniel Farias MD [address] [place] [id number] [facility] Start: 11-20-2023 End: 11-20-2023 Patient encounter procedure 11/20/2023 11:30 AM EDT [facility] [address] [place] [phone] Luis Daniel Farias MD [address] [place] [phone] [facility] Start: 03-31-2023 Influenza vaccination Influenza Vacc ine (#1) [facility] Start: 2023 Pneumococcal Vaccine : 65+ Years (1 - PCV) Pneumococcal Vaccine: 65+ Years (1 - PCV) [facility] Start: 01-08-1988 Screening for malign ant neoplasm of cervix [facility] Start: 1979 Screening for malign ant neoplasm of cervix Pap Smear [facility] Start: 1960 Medicare Annual Well ness (AWV) Medicare Annual Wellness (AWV) [facility] Start: 1960 Screening for malign ant neoplasm of colon [facility] Immunizations Immunization Date Immunization Notes Care Provider Fa cility 05-11-2022 influenza virus vacc ine, unspecified formulation Generic Provider [facility] Payers Date Payer Category Payer Medicare [id number] 2022 Medicare [facility] [id number] 2022-Present [address] [place] [address] [id number] 1959 Unknown [id number] 1958 Unknown [id number] 2.16.840.1.141816.3.579.2.59 3 1958 Unknown [id number] 2.16.840.1.149066.3.579.2.59 3 1958 Unknown [id number] 2.16.840.1.058273.3.579.2.59 3 1958 Unknown [id number] 2.16.840.1.771978.3.579.2.59 3 1958 Unknown [id number] 2.16.840.1.875254.3.579.2.59 3 1958 Unknown [id number] 2.16.840.1.025391.3.579.2.59 3 1958 Unknown [id number] 2.16.840.1.825026.3.579.2.59 3 1958 Unknown [id number] 2.16.840.1.556701.3.579.2.59 3 1958 Unknown [id number] 2.16.840.1.726050.3.579.2.59 3 1958 Unknown [id number] 2.16.840.1.897660.3.579.2.59 3 1958 Unknown [id number] 2.16.840.1.607217.3.579.2.59 3 1958 Unknown [id number] 2.16.840.1.505357.3.579.2.59 3 1958 Unknown [id number] 2.16.840.1.056365.3.579.2.59 3 1958 Unknown [id number] 2.16.840.1.361372.3.579.2.59 3 1958 Unknown [id number] 2.16.840.1.934242.3.579.2.59 3 1958 Unknown [id number] 2.16.840.1.333820.3.579.2.59 3 1958 Unknown [id number] 2.16.840.1.599045.3.579.2.59 3 1958 Unknown [id number] 2.16.840.1.649276.3.579.2.59 3 1958 Unknown [id number] 2.16.840.1.933829.3.579.2.12 59 Social History Date Type Detail Facility Start: 08-22-2023 Tobacco smoking stat [facility] Ex-smoker [facility] End: 07-31-2014 History of tobacco use Current smoker [facility] End: 07-31-2014 History of tobacco use Cigarette Smoker [facility] Start: 08-22-2023 Cigarettes smoked cu rrent (pack per day) - Reported 0.5 [facility] Start: 08-22-2023 Tobacco use and exposure Smoke less tobacco non-user [facility] Start: 08-22-2023 Tobacco use panel [facility] Start: 1960 Sex Assigned At Not on file [facility] Consultation note 11-24-2022 Note Date & Type [...] our patients to inform us about any oiyt-pqb-qowkpbu medications or herbal remedies/nutritional supplements/alternative remedies. 2. [...] their primary care provider. [facility] Consultation note 08-25-2022 Note Date & [...] clinic in three months. [facility] Consultation note 08-11-2022 Note Date & [...] see her next week. [facility] Consultation note 05-12-2022 Note Date & [...] tolerated the procedure well. [facility] Consultation note 05-12-2022 Note Date & [...] agrees with the plan. [facility] Consultation note 02-03-2022 Note Date & [...] call following a new referral to a [place] [employer] architect. The patient is complaining of 7 out [...] She agrees to move forward with that. [facility] Signed and Approved by: PATRIA BARFIELD . 02/10/2022 09:47:00 [facility] Summary Purpose Family History No Family History Records FoundNo Family History Records Found Advance Directives No Advanced Directives Records FoundNo Advanced Directives Records Found Additional Source Comments INFORMATION SOURCE (unrecogn ized section and content) DATE CREATED AUTHOR 01/06/2023 [facility] pital DATE CREATED AUTHOR AUTHOR'S ORGANIZ ATION 08/23/2023 [facility] dical Specialists [employer] Care Teams (unrecognized sec tion and content) Sign Letterer Relationship Specialty Start Date End Date Luis Daniel Farias MD [address] [place] [address] PCP - General Family Medicine 08/22/23 FOR RECORDS PERTAINING TO PATIENTS WHO ARE [...] BE BASED ON THE PRIMARY CLINICAL RECORDS. [employer] provides no warranty or guarantee of the accuracy or completeness of information in this document.
--- NOTE | 2023-09-21 11:53 | P.CN_ITS ---
Consult Note: HPI Data of Consult Patient: known to practice within the last 3 years Requesting Physician: Juana Seaman NP Primary Care Provider: Luis Daniel Russell MD Consult Narrative Reason for consult: low back pain Narrative: Mesha Jung a pleasant 63 year old female presents to the office for evaluation of chronic low back and bilateral buttock pain, over the last 7 weeks patient has noticed increase in her pain as well as weakness of right leg. Patient went to her PCP who did imaging and the lumbar xray reveals progressive degenerative disc disease vs discitis. Pain today 7/10 sore aching and sharp pain, increasing to 10/10 with all activity, bending, twisting, carrying heavy objects. Patient having trouble with all activities and has had to cut back her hours at work, is now unable to work because of her pain and inability to carry out job duties. Blood work reviewed, no concerning findings. MRI of lumbar spine with and without contrast significant for stenosis, facet arthropathy, and ligamentum flavum thickening. See below for details. Denies fevers, chills, loss of bowel/bladder. NYDIA 53% with moderate to severe pain, pain impacting lifting, ADLS, walking, sitting, standing, sleep and social life. cc:: CC: Juana Seaman NP Review of Systems ROS Status of ROS 10 or more systems reviewed and unremark able except as noted in history and below Musculoskeletal Reports: back pain PFSH PFSH Medical History S/P extracorporeal shock wave therapy ?Z98.890 - Other specified postprocedural states (ICD-10) Low back pain ?M54.50 - Low back pain, unspecified (ICD-10) Osteoarthritis ?M19.90 - Unspecified osteoarthritis, unspecified site (ICD-10) Anemia ?D64.9 - Anemia, unspecified (ICD-10) Hiatal hernia ?K44.9 - Diaphragmatic hernia without obstruction or gangrene (ICD-10) Kidney stone ?N20.0 - Calculus of kidney (ICD-10) Former smoker ?Z87.891 - Personal history of nicotine dependence (ICD-10) Hypertension ?I10 - Essential (primary) hypertension (ICD-10) Surgical History Hx of appendectomy ?Z90.49 - Acquired absence of other specified parts of digestive tract (ICD- 10) H/O hemorrhoidectomy ?Z98.890 - Other specified postprocedural states (ICD-10) 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 (ICD-10) H/O section ?Z98.891 - History of uterine scar from previous surgery (ICD-10) H/O: hysterectomy ?Z90.710 - Acquired absence of both cervix and uterus (ICD-10) Meds Home Medications and Allergies Home Medications Medication Instructions Recorded Confirmed Type calcium 100 mg capsule mg PO QDAY 01/19/23 History cbd extract BID 01/19/23 History cholecalciferol (vitamin D3) 50 50 mcg PO DAILY 01/19/23 01/24/23 History mcg (2,000 unit) tablet (D3 DOTS) lisinopril 20 1 tab PO BID 01/19/23 01/24/23 History mg-hydrochlorothiazide 25 mg tablet multivitamin 1 tab PO DAILY 01/19/23 01/24/23 History naproxen 500 mg tablet 500 mg PO BID 01/24/23 01/24/23 History Allergies Allergy/AdvReac Type Severity Reaction Status Date / Time No Known Drug Allergies Allergy Verified 01/24/23 07:10 Exam Constitutional Documenting provider has reviewed patient's vital signs: yes Common normals: no apparent distress, oriented x3, healthy appearing, alert and well nourished General appearance: cooperative [facility] Common normals: normocephalic, hearing grossly normal bilaterally and moist oral mucous membranes Head and scalp: normocephalic Eye Common normals: PERRL Pupil: PERRL Neck & C-Spine Common normals: full ROM General: normal visual inspection Chest Common normals: inspection of chest normal Respiratory Common normals: normal respiratory effort, no retractions and no use of accessory muscles Back & Pelvis Thoracic spine/upper back: ROM limited and pain with ROM Lumbar spine/lower back: ROM limited, pain with ROM and straight leg raise positive right Sacroiliac joints: SI joint(s) abnormal (bilateral pain over PSIS, positive thigh thrust, EMMANUEL, niko R>L) Other: sensation decreased in right L2,3,4 pattern strength 4/5 in RLE Extremity Common normals: normal to inspection and full ROM Right lower extremity: knee joint (pain with weight bearing and ROM) Left lower extremity: knee joint (pain with weight bearing and ROM) Neuro Common normals: oriented x3, CN's II-XII intact bilaterally, moves all extremities, no focal motor deficits, no sensory deficits noted and deep tendon reflexes 2+ bilaterally Sensorium/orientation: alert Gait (neuro): antalgic Motor exam: no movement abnormalities noted and strength abnormal Deep tendon reflexes: Rt Patellar (L4): 1+ and Rt Ankle (S1): 1+ Psych Common normals: mental status grossly normal, thought process normal, cooperative, affect normal, speech normal and activity/motor behavior normal Speech: normal speech Thought process: normal thought process Results Imaging lumbar MRI with and without contrast: Radiologist's impression: MR lumbar spine wo/w con INDICATION: Right Lower Extremity Weakness, Lumbar Radiculopathy. TECHNIQUE: Multiplanar MR imaging of the lumbar spine was performed. IV contrast: The type and volume of contrast material is documented in the medical record. COMPARISON: None available. FINDINGS: SEGMENTATION: There are 7 cervical, 12 thoracic, and 5 lumbar type vertebrae. POSTOPERATIVE CHANGES: None. ALIGNMENT: There is levoconvex scoliosis of the lumbar spine with apex at the L3 level. There is normal AP alignment. VERTEBRAE: No evidence of acute fractures or significant losses of vertebral body heights. There are mild Modic type endplate changes at multiple levels. The bone marrow signal is mildly heterogeneous. CONUS: The conus terminates at the L1 level. No suspicious enhancement of the cauda equina. INTERVERTEBRAL DISCS: There is advanced degenerative disc disease at L1-L2, L2-L3, and L3-L4. There are Modic type I reactive endplate changes at L1-L2. There are Modic type I and III reactive endplate changes at L2-L3. There is moderate disc space narrowing and disc desiccation at T10-T11 and T11-T12. Mild disc space narrowing and disc desiccation at L4-L5 and L5-S1. CONGENITAL: None. T11-T12: There is a small broad-based disc bulge that effaces the thecal sac. Mild facet arthropathy. No significant spinal canal stenosis. Mild foraminal narrowing. T12-L1: Slight bulging of the posterior disc. No spinal canal or foraminal stenosis. L1-L2: There is a moderate broad-based disc bulge that effaces the thecal sac. Mild spinal canal narrowing. Mild narrowing of the left neural foramen. The right neural foramen is patent. L2-L3: There is a moderate posterior disc osteophyte complex that effaces the thecal sac. Bilateral facet arthropathy and ligamentum flavum thickening. This constellation of findings results in moderate spinal canal stenosis with significant subarticular narrowing. There is moderate bilateral foraminal stenosis. L3-L4: Posterior disc osteophyte complex effaces the thecal sac. Bilateral facet arthropathy and ligamentum flavum thickening. Mild to moderate spinal canal narrowing with significant subarticular narrowing on the right. Moderate to severe stenosis of the right neural foramen. Mild narrowing of the left neural foramen. L4-L5: There is a posterior disc osteophyte complex that effaces the thecal sac. Bilateral facet arthropathy and ligamentum flavum thickening. This constellation of findings results in severe spinal canal stenosis. Mild foraminal narrowing. L5-S1: Small posterior disc bulge. Bilateral facet arthropathy. No spinal canal stenosis. Mild to moderate narrowing of the left neural foramen. The right neural foramen is patent. PARASPINAL SOFT TISSUES: The paraspinal soft tissues are unremarkable. OTHER: Multiple cysts within the kidneys. MR/MR lumbar spine wo/w con IMPRESSION: There is levoconvex scoliosis of the lumbar spine. Advanced degenerative disc disease at L1-L2 through L3-L4. Severe spinal canal stenosis at L4-L5 due to posterior disc osteophyte complex, facet arthropathy, and ligamentum flavum thickening. There is moderate spinal canal stenosis at L2-L3 and mild to moderate spinal canal stenosis at L3-L4. Multilevel degenerative changes contribute to multilevel foraminal stenosis which is described level by level above. Electronically authenticated by: ILANA CHARLES Date: 09/16/2023 06:08 Additional Findings Additional findings: I have checked an OARRS report on this patient today and there are no aberrancies noted in the prescribing history.?? A drug screen was completed and reviewed within the last year, and if there has not been a drug screen completed we ordered one today to monitor higher risk, state monitored pain medication use. As part of providing excellent, safe, comprehensive care, the following was completed at our patient's visit: 1. A medication reconciliation and review to ensure accurate knowledge of current/active medications, including asking our patients to inform us about any pzcd-izf-iyvyjow medications or herbal remedies/nutritional supplements/alternative remedies. 2. A review to specifically ensure our patients have had annual screening for: elevated body mass index (BMI), tobacco use, screening for depression, and s creening for unhealthy alcohol use. When screening is concerning, patients are provided with education and the specific recommendation to discuss the concerning health issue and treatment options with their primary care provider. Assessment and Plan Assessment and Plan (1) Lumbar spondylosis: (2) Lumbar radiculopathy: (3) Bilateral sacroiliitis: Assessment and Plan: bilateral positive EMMANUEL, gaenslens, thigh thrust, and SI compression. right > left (4) Muscle spasm: (5) Fibromyalgia: Plan MRI and bloodwork revealed with pt. will refer to NS Dr Sheets for evaluation and management of lumbar MRI findings. Patient not interested in surgery at this time but would like to discuss her options continue f/u with orthopedics as previously referred for right knee pain and instability right L3-4 L4-5 TFESI under fluoroscopy with Dr Fraga, risks vs benefits discussed right SIJ injection under fluoroscopy with Dr Fraga continue HEP as tolerated continue naproxen/motrin PRN, mild benefit no side effects f/u after completion of injections
== END 2023-09-21 11:36 | disposition home or self-care (01) ==
LOC: PM 11:35
PROVIDERS: PCP Family Medicine; Visit Provider Nurse Practitioner
DX: M47.816 Spondylosis without myelopathy or radiculopathy, lumbar region (principal); M54.16 Radiculopathy, lumbar region; M46.1 Sacroiliitis, not elsewhere classified; M62.838 Other muscle spasm; M79.7 Fibromyalgia
CPT/HCPCS: G0463

== ENCOUNTER 2023-10-09 08:56 | Day surgery (SDC) | payer MEDICARE, SELFPAY ==
--- OUTSIDE RECORDS SUMMARY | 2023-10-09 09:00 | XMS_ITS | CCD ---
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 MRI LSPINE WO CONon 12-10-19 MRI LSMONROE WO CON EXAMINATION: MRI LSPINE WO CON [...] WILFRED RAHMAN Date: 2022-12-09 11:57 Normal [facility] Covid-19 PCR (CVDTB)on 06-30 SARS-CoV-2 (COVID-19) RNA KEIRY+probe Ql (Unsp spec) Detected Critically abnormal NOT DETECTED [facility] Comment on above: Result Comment: This test is not yet approved or cleared by the [place] FDA. When there are no FDA-approved or cleared tests available, and other criteria are met, FDA can make tests available under an emergency access mechanism called an Emergency Use Authorization (EUA). The EUA for this test is supported by the [employer] As[employer]er of Health and Human Service's declaration that [...] longer be used). Performed By: #### C [facility] ####[facility] [address] [place], [place] [address]Lr. Nelsy Corrigan MG MAMM SCREEN 3D GAVIN CADon 06-09-2022 MG MAMM SCREEN 3D GAVIN CAD Patient: MARICRUZ JUNG Exam Date: 06/09/2022 : 1960 Gender:F Ordering : DR LUIS DANIEL FARIAS . Admission #: [id number] Family : Order #: [id number] CLICK HERE TO VIEW EXAM RADIOLOGY REPORT [...] unknown cancer at age 70. LOCATION: [facility] BREAST COMPOSITION: Scattered areas fibroglandular density. [...] MD on 06/10/2022 at 09:05 Normal [facility] CBC AUTO DIFFon 06-02-2022 BASO # 0.0 103/ul Normal 0.0-0.1 [facility] Comment on above: Performed By: #### C BC ####[facility] [address] [place] [address]Dr. Nelsy Corrigan Basophils/100 WBC (Bld) 0.6 % Normal 0.2-2.0 [facility] Comment on above: Performed By: #### C BC ####[facility] [address] [place] [id number] Corrigan EO # 0.3 103/ul Normal 0.0-0.7 [facility] Comment on above: Performed By: #### C BC ####[facility] [address] [place] [id number]. Nelsy Corrigan Eosinophils/100 WBC (Bld) 3.6 % Normal 0.9-7.0 [facility] Comment on above: Performed By: #### C BC ####[facility] [address] [place] [address]Dr. Nelsy Corrigan Erythrocyte distribution width (RBC) [Ratio] 13.8 % Normal 11.0-15.0 [facility] Comment on above: Performed By: #### C BC ####[facility] [address] [place], [place] [address]Dr. Nelsy Corrigan Hematocrit (Bld) [Volume fraction] 37.2 % Normal 36.0-48.0 [facility] Comment on above: Performed By: #### C BC ####[facility] [address] [place], [place] [address]Dr. Nelsy Corrigan Hemoglobin (Bld) [Mass/Vol] 11.9 g/dL Critically low 12.0-16.0 [facility] Comment on above: Performed By: #### C BC ####[facility] [address] [place], [place] [address]Dr. Nelsy Corrigan IG # 0.02 10e3/ul Normal 0.00-0.03 [facility] Comment on above: Performed By: #### C BC ####[facility] [address] [place], [place] [address]Dr. Nelsy Corrigan IG % 0.3 % Normal 0.0-0.5 [facility] Comment on above: Performed By: #### C BC ####[facility] [address] [place], [place] [address]Dr. Nelsy Corrigan LYMPH # 1.6 103/ul Normal 1.2-3.8 [facility] Comment on above: Performed By: #### C BC ####[facility] [address] [place], [place] [address]Dr. Nelsy Corrigan Lymphocytes/100 WBC (Bld) 22.5 % Normal 20.5-60.0 [facility] Comment on above: Performed By: #### C BC ####[facility] [address] [place], [place] [address]Dr. Nelsy Corrigan MANUAL DIFF REQ NO Normal [facility] Comment on above: Performed By: #### C BC ####[facility] [address] [place] [id number]. Nelsy Corrigan MCH (RBC) [Entitic mass] 29.3 pg Normal 26.7-34.0 [facility] Comment on above: Performed By: #### C BC ####[facility] [address] [place] [id number]. Nelsy Corrigan MCHC (RBC) [Mass/Vol] 32.0 g/dL Normal 29.9-35.2 [facility] Comment on above: Performed By: #### C BC ####[facility] [address] [place] [address]Dr. Nelsy Shekhar MCV (RBC) [Entitic vol] 91.6 fL Normal 81.0-99.0 [facility] Comment on above: Performed By: #### C BC ####[facility] [address] [place], [place] [address]Dr. Nelsy Corrigan MONO # 0.5 103/ul Normal 0.3-0.8 [facility] Comment on above: Performed By: #### C BC ####[facility] [address] [place], [place] [address]Dr. Teresemarisa Corrigan Monocytes/100 WBC (Bld) 7.6 % Normal 1.7-12.0 [facility] Comment on above: Performed By: #### C BC ####[facility] [address] [place], [place] [address]Dr. Nelsy Corrigan NEUT # 4.5 103/ul Normal 1.4-6.5 [facility] Comment on above: Performed By: #### C BC ####[facility] [address] [place], [place] [address]Dr. Nelsy Corrigan Neutrophils/100 WBC (Bld) 65.4 % Normal 43.0-75.0 [facility] Comment on above: Performed By: #### C BC ####[facility] [address] [place], [place] [address]Dr. Nelsy Corrigan Platelet mean volume (Bld) [Entitic vol] 10.2 fL Normal 9.5-13.5 [facility] Comment on above: Performed By: #### C BC ####[facility] [address] [place] [id number]. Nelsy Corrigan PLT 341 103/ul Normal 150-450 [facility] Comment on above: Performed By: #### C BC ####[facility] [address] [place] [id number]. Nelsy Corrigan RBC 4.06 106/ul Critically low 4.20-5.40 [facility] Comment on above: Performed By: #### C BC ####[facility] [address] [place] [id number]. Nelsy Corrigan WBC 6.9 103/ul Normal 4.0-11.0 [facility] Comment on above: Performed By: #### C BC ####[facility] [address] [place] [address]Dr. Nelsy Corrigan GLYCOHEMOGLOBIN A1Con 2021 ADA RECOMMENDATION SEE BELOW Normal [facility] Comment on above: Result Comment: ADA RECOMMENDED LIMIT 4.0 - 6.0 ADA THERAPEUTIC TARGET < 7.0 ACTION SUGGESTED > 7.0 Performed By: #### A 1C ####[facility] [address] [place] [address]Dr. Nelsy Corrigan Glucose [Mass/Vol] 114 mg/dL Normal [facility] Comment on above: Performed By: #### A 1C ####[facility] [address] [place] [id number]. Nelsy Corrigan HbA1c (Bld) [Mass fraction] 5.6 % Normal 4.5-6.2 [facility] Comment on above: Performed By: #### A 1C ####[facility] [address] [place] [address]Dr. Nelsy Corrigan LIPID PROFILEon 06-02-2022 CHOL-HDL RATIO NORM SEE BELOW Normal [facility] Comment on above: Result Comment: 3.3 - 4.4 LOW RISK 4.4 - 7.1 AVERAGE RISK 7.1 - 11.0 MODERATE RISK >11.0 HIGH RISK Performed By: #### L IVER, BMP, TSH, LIPID #### [facility] [address] [place] [address] [address] Nelsy Corrigan Cholesterol [Mass/Vol] 169 mg/dL Normal <=200 [facility] Comment on above: Performed By: #### L IVER, BMP, TSH, LIPID #### [facility] [address] [place] [address] [address] Nelsy Corrigan Cholesterol in HDL [Mass/Vol] 50 mg/dL Normal 40-60 [facility] Comment on above: Performed By: #### L IVER, BMP, TSH, LIPID #### [facility] [address] [place] [address] [address] Nelsy Corrigan Cholesterol in LDL [Mass/Vol] 97.8 mg/dL Normal [facility] Comment on above: Performed By: #### L IVER, BMP, TSH, LIPID #### [facility] [address] [place] [address] [address] Nelsy Corrigan Cholesterol.total/Ch olesterol in HDL [Mass ratio] 3.4 {ratio} Normal [facility] Comment on above: Performed By: #### L IVER, BMP, TSH, LIPID #### [facility] [address] [place] [address] [address] Nelsy Corrigan HDL NORMAL > or = 60 mg/dl - LOW CARDIOVASCULAR RISK <40 mg/dl - HIGH CARDIOVASCULAR RISK Normal [facility] Comment on above: Performed By: #### L IVER, BMP, TSH, LIPID #### [facility] [address] [place] [address] [address] Nelsy Corrigan LDL CALC NORMAL SEE BELOW Normal [facility] Comment on above: Result Comment: <100 mg/dl OPTIMAL 100 - 129 mg/dl NEAR OR ABOVE OPTIMAL 130 - 159 mg/dl BORDERLINE HIGH 160 - 189 mg/dl HIGH >190 mg/dl VERY HIGH Performed By: #### L IVER, BMP, TSH, LIPID #### [facility] [address] [place] [address] [address] Nelsy Corrigan Triglyceride [Mass/Vol] 106 mg/dL Normal <=150 [facility] Comment on above: Performed By: #### L IVER, BMP, TSH, LIPID #### [facility] [address] [place] [address] Dr. Nelsy Corrigan VLDL CALC 21.2 mg/dL Normal [facility] Comment on above: Performed By: #### L IVER, BMP, TSH, LIPID #### [facility] [address] [place] [address] Dr. Nelsy Corrigan LIVER PROFILEon 06-02-2022 Albumin [Mass/Vol] 3.6 g/dL Normal 3.4-5.0 [facility] Comment on above: Performed By: #### L IVER, BMP, TSH, LIPID #### [facility] [address] [place] [address] Dr. Nelsy Corrigan Albumin/Globulin [Mass ratio] 1.1 {ratio} Normal [facility] Comment on above: Performed By: #### L IVER, BMP, TSH, LIPID #### [facility] [address] [place] [address] Dr. Nelsy Corrigan ALP [Catalytic activity/Vol] 61 U/L Normal 46-116 [facility] Comment on above: Performed By: #### L IVER, BMP, TSH, LIPID #### [facility] [address] [place] [address] Dr. Nelsy Corrigan ALT [Catalytic activity/Vol] 27 U/L Normal 14-59 [facility] Comment on above: Performed By: #### L IVER, BMP, TSH, LIPID #### [facility] [address] [place] [address] Dr. Nelsy Corrigan AST [Catalytic activity/Vol] 20 U/L Normal 15-37 [facility] Comment on above: Performed By: #### L IVER, BMP, TSH, LIPID #### [facility] [address] [place] [address] Dr. Nelsy Corrigan BILI, CONJUGATED 0.1 mg/dL Normal 0.0-0.2 [facility] Comment on above: Performed By: #### L IVER, BMP, TSH, LIPID #### [facility] [address] [place] [address] Dr. Nelsy Corrigan Bilirubin [Mass/Vol] 0.4 mg/dL Normal 0.2-1.0 [facility] Comment on above: Performed By: #### L IVER, BMP, TSH, LIPID #### [facility] [address] [place] [address] [address] Nelsy Corrigan Globulin (S) [Mass/Vol] 3.2 g/dL Normal [facility] Comment on above: Performed By: #### L IVER, BMP, TSH, LIPID #### [facility] [address] [place] [address] [address] Nelsy Corrigan Protein [Mass/Vol] 6.8 g/dL Normal 6.4-8.2 [facility] Comment on above: Performed By: #### L IVER, BMP, TSH, LIPID #### [facility] [address] [place] [address] Dr. Nelsy Corrigan PROF CHEM 8 (BAS METB)on Anion gap [Moles/Vol] 9.7 mmol/L Normal [facility] Comment on above: Performed By: #### L IVER, BMP, TSH, LIPID #### [facility] [address] [place] [address] [address] Nelsy Corrigan Calcium [Mass/Vol] 10.4 mg/dL Critically high 8.5-10.1 [facility] Comment on above: Performed By: #### L IVER, BMP, TSH, LIPID #### [facility] [address] [place] [address] [address] Nelsy Corrigan Chloride [Moles/Vol] 101 mmol/L Normal 98-107 [facility] Comment on above: Performed By: #### L IVER, BMP, TSH, LIPID #### [facility] [address] [place] [address] [address] Nelsy Corrigan CO2 [Moles/Vol] 28.1 mmol/L Normal 21.0-32.0 [facility] Comment on above: Performed By: #### L IVER, BMP, TSH, LIPID #### [facility] [address] [place] [address] [address] Nelsy Corrigan Creatinine [Mass/Vol] 0.69 mg/dL Normal 0.55-1.02 [facility] Comment on above: Performed By: #### L IVER, BMP, TSH, LIPID #### [facility] [address] [place] [address] [address] Nelsy Corrigan EGFR-AF ROMANIAN >60 Normal >=60 [facility] Comment on above: Performed By: #### L IVER, BMP, TSH, LIPID #### [facility] [address] [place] [address] [address] Nelsy Corrigan EGFR-NON AF ROMANIAN >60 Normal >=60 [facility] Comment on above: Performed By: #### L IVER, BMP, TSH, LIPID #### [facility] [address] [place] [address] Dr. Nelsy Corrigan Glucose [Mass/Vol] 92 mg/dL Normal 74-106 [facility] Comment on above: Performed By: #### L IVER, BMP, TSH, LIPID #### [facility] [address] [place] [address] [address] Nelsy Corrigan Potassium [Moles/Vol] 3.8 mmol/L Normal 3.5-5.1 [facility] Comment on above: Performed By: #### L IVER, BMP, TSH, LIPID #### [facility] [address] [place] [address] Dr. Nelsy Corrigan Sodium [Moles/Vol] 135 mmol/L Critically low 136-145 [facility] Comment on above: Performed By: #### L IVER, BMP, TSH, LIPID #### [facility] [address] [place] [address] Dr. Nelsy Corrigan Urea nitrogen [Mass/Vol] 24.0 mg/dL Critically high 7.0-18.0 [facility] Comment on above: Performed By: #### L IVER, BMP, TSH, LIPID #### [facility] [address] [place] [address] Dr. Nelsy Corrigan Urea nitrogen/Creatinine [Mass ratio] 34.8 mg/mg Normal [facility] Comment on above: Performed By: #### L IVER, BMP, TSH, LIPID #### [facility] [address] [place], [place] [address] Dr. Nelsy Corrigan TSHon 06-02-2022 TSH 1.422 uIU/mL Normal 0.358-3.740 [facility] Comment on above: Performed By: #### L IVER, BMP, TSH, LIPID #### [facility] [address] [place], [place] [address] Dr. Nelsy Corrigan VITAMIN B12on 06-02-2022 Cobalamin (Vitamin B12) [Mass/Vol] 878.0 pg/mL Normal 193.0-986.0 [facility] Comment on above: Performed By: #### V ITB12 #### [facility] [address] [place], [place] [address] Dr. Nelsy Corrigan Covid-19 PCR (CVDTBH)on 03-31 SARS-CoV-2 (COVID-19) RNA KEIRY+probe Ql (Unsp spec) Not detected Normal NOT DETECTED [facility] Comment on above: Result Comment: This test is not yet approved or cleared by the [place] FDA. When there are no FDA-approved or cleared tests available, and other criteria are met, FDA can make tests available under an emergency access mechanism called an Emergency Use Authorization (EUA). The EUA for this test is supported by the [employer] of Health and Human Service's (HHS's) declaration [...] with SARS-CoV-2. Performed By: #### C VDTBH ####[facility] [address] [place], [place] [address]Dr. Nelsy Corrigan Covid-19 PCR (CVDTBH)on SARS-CoV-2 (COVID-19) RNA KEIRY+probe Ql (Unsp spec) Not detected Normal NOT DETECTED [facility] Comment on above: Result Comment: This test is not yet approved or cleared by the [place] FDA. When there are no FDA-approved or cleared tests available, and other criteria are met, FDA can make tests available under an emergency access mechanism called an Emergency Use Authorization (EUA). The EUA for this test is supported by the [place] of Health and Human Service's (HHS's) declaration [...] consistent with SARS-CoV-2. Performed By: #### C [facility] ####[facility] [address] [place], [place] [address]Cb. Nelsy Corrigan Encounters Encounter Date Encounter Type [...] . Facility:H1 Start: 11-24-2022 End: 11-25-2022 ambulatory APTRIA BARFIELD . Facility:[facility]1 Start: 08-25-2022 End: 08-26-[address] LUIS DANIEL FARIAS Facility:[facility]1 Start: 08-11-2022 End: 08-12-2022 ambulatory PATRIA BARFIELD . Facility:[facility] Start: 07-09-2022 End: 07-09-[address] LUIS DANIEL FARIAS Facility:[facility] Start: 06-09-2022 End: 06-10-[address] LUIS DANIEL FARIAS Facility:[facility]1 Start: 06-06-2022 Encounter for genera l adult medical examination without abnormal findings DR LUIS DANIEL FARIAS [facility] Start: 06-02-2022 End: 06-03-[address] LUIS DANIEL FARIAS Facility:H1 Start: 06-02-2022 End: 06-03-2022 Encounter for general adult medical examination without abnormal findings DR LUIS DANIEL FARIAS Facility:[facility]1 Start: 05-12-2022 End: 05-13-2022 ambulatory PATRIA BARFIELD . Facility:[facility]1 Start: 04-16-2022 Encounter for preprocedural laboratory examination DR HECTOR TRENT . [facility] Start: 04-12-2022 End: 04-12-[address] [...] 12/05/2023 1:15 PM EDT Office Visit [facility] [address] [place] [address] Luis Daniel Farias MD [address] [place] [phone] [facility] Start: 11-20-2023 End: 11-20-2023 Patient encounter procedure 11/20/2023 11:30 AM EDT [facility] [address] [place] [id number] Luis Daniel Farias MD [address] [place] [phone] [facility] Start: 03-31-2023 Influenza vaccination Influenza Vacc ine (#1) [facility] Start: 2023 Pneumococcal Vaccine : 65+ Years (1 - PCV) Pneumococcal Vaccine: 65+ Years (1 - PCV) [facility] Start: 01-08-1988 Screening for malign ant neoplasm of cervix [facility] Start: 1979 Screening for malign ant neoplasm of cervix Pap Smear [facility] Start: 1960 Medicare Annual Well ness (AWV) Medicare Annual Wellness (AWV) [facility] Start: 1960 Screening for malign ant neoplasm of colon [facility] Immunizations Immunization Date Immunization Notes Care Provider Fa cility 05-11-2022 influenza virus vacc ine, unspecified formulation Generic Provider [facility] Payers Date Payer Category Payer Medicare [id number] 2022 Medicare [facility] MEDICARE ADVANTAGE [facility] MEDICARE ADVANTAGE [id number] 2022-Present [address] [place] [address] [id number] 1961 Unknown [id number] 1960 Unknown [id number] 2.16.840.1.636185.3.579.2.59 3 1960 Unknown [id number] 2.16.840.1.116634.3.579.2.59 3 1960 Unknown [id number] 2.16.840.1.845295.3.579.2.59 3 1960 Unknown [id number] 2.16.840.1.425997.3.579.2.59 3 1960 Unknown [id number] 2.16.840.1.405811.3.579.2.59 3 1960 Unknown [id number] 2.16.840.1.458825.3.579.2.59 3 1960 Unknown [id number] 2.16.840.1.547168.3.579.2.59 3 1960 Unknown [id number] 2.16.840.1.032864.3.579.2.59 3 1960 Unknown [id number] 2.16.840.1.969652.3.579.2.59 3 1960 Unknown [id number] 2.16.840.1.602687.3.579.2.59 3 1960 Unknown [id number] 2.16.840.1.553219.3.579.2.59 3 1960 Unknown [id number] 2.16.840.1.401804.3.579.2.59 3 1960 Unknown [id number] 2.16.840.1.382012.3.579.2.59 3 1960 Unknown [id number] 2.16.840.1.271407.3.579.2.59 3 1960 Unknown [id number] 2.16.840.1.016695.3.579.2.59 3 1958 Unknown [id number] 2.16.840.1.259193.3.579.2.59 3 1958 Unknown [id number] 2.16.840.1.581921.3.579.2.59 3 1960 Unknown [id number] 2.16.840.1.333707.3.579.2.59 3 1960 Unknown [id number] 2.16.840.1.021749.3.579.2.12 57 Social History Date Type Detail Facility Start: 08-22-2023 Tobacco smoking stat [facility] Ex-smoker [facility] End: 07-31-2014 History of tobacco use Current smoker [facility] End: 07-31-2014 History of tobacco use Cigarette Smoker [facility] Start: 08-22-2023 Cigarettes smoked cu rrent (pack per day) - Reported 0.5 [facility] Start: 08-22-2023 Tobacco use and exposure Smoke less tobacco non-user [facility] Start: 08-22-2023 Tobacco use panel [facility] Start: 1960 Sex Assigned At Not [...] our patients to inform us about any saas-grl-cuusoam medications or herbal remedies/nutritional supplements/alternative remedies. 2. [...] options with their primary care provider. [facility] Consultation note 08-25-2022 Note Date & [...] in the clinic in three months. [facility] Consultation note 08-11-2022 Note Date & [...] we will see her next week. [facility] Consultation note 05-12-2022 Note Date & [...] and patient tolerated the procedure well. [facility] Consultation note 05-12-2022 Note Date & [...] indicated. Patient agrees with the plan. [facility] Consultation note 02-03-2022 Note Date & [...] call following a new referral to a [place] gluer and slicer hand. The patient is complaining of 7 out [...] She agrees to move forward with that. [facility] Signed and Approved by: PATRIA BARFIELD . 02/10/2022 09:47:00 [facility] Summary Purpose Family History No Family History Records FoundNo Family History Records Found Advance Directives No Advanced Directives Records FoundNo Advanced Directives Records Found Additional Source Comments INFORMATION SOURCE (unrecogn ized section and content) DATE CREATED AUTHOR 01/06/[address] 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 [employer] provides no warranty or guarantee of the accuracy or completeness of information in this document.
[2023-10-09 09:05] VITALS: BP 149/92; PULSE 94; RESP 16; TEMP 36.3; O2SAT 97
[2023-10-09 10:06] VITALS: BP 165/85; PULSE 68; RESP 18; O2SAT 94
[2023-10-09] MEDS: DEXAMETHASONE SOD PHOS 10 MG/ML VIAL INJ (10:12)
[2023-10-09] MEDS: 0.9 % SODIUM CHLORIDE 10 ML INJ (10:12)
[2023-10-09] MEDS: BUPIVACAINE HCL 0.25% PF 25 MG/10 ML VIAL INJ (10:12)
--- NOTE | 2023-10-09 10:12 | P.ON_ITS ---
Date of procedure: 10/09/23 Pre-op diagnosis: Lumbar stenosis with neurogenic claudication Post-op diagnosis: same as pre-op Procedure: Procedure: Right L3-4, L4-5 transforaminal epidural steroid injection Medications: Bupivacaine 0.25% 2cc, lidocaine 2% 1cc, dexamethasone 10mg The patient was seen and examined in the preoperative holding area.? Informed consent was obtained and placed on the chart.? Patient was brought to the medical procedure unit and placed in the prone position where a timeout was completed verifying the correct patient, procedure site, position, and planned special equipment using sterile aseptic technique.? Under direct fluoroscopic visualization a 25-gauge Quincke tipped spinal needle was advanced to the designated neural foramen where contrast dye was injected to show adequate spread.? The needle was inserted at level right L3-4. There was no evidence of vascular or adverse uptake.? Epidural spread was appreciated.? The above- mentioned injectate was then placed in a 1.5 mL aliquot preceded by negative aspiration.? The needle was removed. The needle was inserted and the procedure repeated at level right L4-5.? The surgery site was covered.? Patient was taken to the postprocedural recovery area and monitored for an appropriate length of time before found suitable for discharge in the accompaniment of a responsible adult. Anesthesia: Local Surgeon: Nikole Fraga Pathology: none sent Condition: stable Disposition: no change
[2023-10-09] MEDS: IOHEXOL 240 MG/ML - 10 ML VIAL 24 MG INJ (10:13)
[2023-10-09] MEDS: LIDOCAINE HCL 2% PF 100 MG/5 ML VIAL 4 ML INJ (10:13)
[2023-10-09 10:14] VITALS: BP 159/86; PULSE 67; RESP 18; O2SAT 94
== END 2023-10-09 10:16 | disposition home or self-care (01) ==
PROVIDERS: PCP Family Medicine; Visit Provider Anesthesiology
DX: M48.062 Spinal stenosis, lumbar region with neurogenic claudication (principal)
CPT/HCPCS: 64483; 64484; J1100; Q9966

== ENCOUNTER 2023-10-23 07:00 | Day surgery (SDC) | payer MEDICARE, SELFPAY ==
--- OUTSIDE RECORDS SUMMARY | 2023-10-23 07:03 | XMS_ITS | CCD ---
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 Role Phone TRENT ., DR HECTOR [...] Care Unavailable BARFIELD ., PATRIA Consulting Unavailable NADBETH, DR LUIS DANIEL Nazario Primary Care Unavailable TRENT ., DR HECTOR Garcia Admitting Unavailable TRENT ., DR HECTOR Garcia Attending Unavailable LAKSHMIPATHY ., GRACIELA Attending Serena vailable LAKSHMIPATHY ., GRACIELA Admitting Serena vailable JARRETT, DR LUIS DANIEL Nazario Primary Care Unavailable LACEY, DR WILFRED Romero Consulting Unavailable LAKSHMIPATHGloria ., GRACIELA Consulting Serena vailable JARRETT, DR LUIS DANIEL Nazario Admitting Unavailable NADERENick, DR LUIS DANIEL Nazario Primary Care Unavailable NADERENick, DR LUIS DANIEL Nazario Consulting Unavailable NADBETH, DR LUIS DANIEL Nazario Attending Unavailable LAKSHMIPATHY ., GRACIELA Attending Serena vailable LAKSHMIPATHY ., GRACIELA Admitting Serena vailable JARRETT, DR LUIS DANIEL Nazario Primary Care Unavailable NADERENick, DR LUIS DANIEL Nazario Primary Care Unavailable NADERENick, DR LUIS DANIEL Nazario Attending Unavailable NADERENick, DR LUIS DANIEL Nazario Admitting Unavailable ALTOONA, DR RACHEL Sanon Consulting Unavailable NADERENick, DR LUIS DANIEL Nazario Consulting Unavailable NADBETH, DR LUIS DANIEL Nazario Primary Care Unavailable TRENT ., DR HECTOR Garcia Consulting Unavailable TRENT ., DR HECTOR Garcia Attending Unavailable TRENT ., DR HECTOR Garcia Admitting Unavailable OPHELIA NEWMAN Consulting Unavailable BARFIELD ., PATRIA Consulting Unavailable NADBETH, DR LUIS DANIEL Nazario Primary Care Unavailable TRENT ., DR HECTOR Garcia Admitting Unavailable TRENT ., DR HECTOR Garcia Attending Unavailable LAKSHMIPATHY ., NARVENUS Consulting Serena vailable NADERER, DR LUIS DANIEL Nazario Primary Care Unavailable TRENT ., DR HECTOR Garcia Admitting Unavailable BARFIELD ., PATRIA Consulting Unavailable TRENT ., DR HECTOR Garcia Attending Unavailable LAKSHMIPATHY ., NARENDRANATH Consulting Serena vailable LAKSHMIPATHY ., NARENDRANATH Attending Serena vailable LAKSHMIPATHY ., NARENDRANATH Admitting Serena vailable NADERER, DR LUIS DANIEL Nazario Primary Care Unavailable LAKSHMIPATHY ., NARENDRANATH Attending Serena vailable LAKSHMIPATHY ., NARENDRANATH Admitting [...] YAMILEX Bhatt Consulting Unavailabl e NADERER, DR LUISD ANIEL Nazario Primary Care Unavailable TRENT ., DR HECTOR Garcia Admitting Unavailable TRENT ., DR HECTOR Garcia Consulting Unavailable TRENT ., DR HECTOR Garcia Attending Unavailable BARFIELD ., PATRIA Attending Unavailable BARFIELD ., PATRIA Admitting Unavailable BARFIELD ., PATRIA Consulting Unavailable NADERENick, DR LUIS DANIEL Nazario Primary Care Unavailable NADERER, DR LUIS DANIEL Nazario Primary Care Unavailable TRENT ., DR HECTOR Garcia Admitting Unavailable TRENT ., DR HECTOR Garcia Consulting Unavailable TRENT ., DR HECTOR Garcia Attending Unavailable LUIS DANIEL FARIAS Attending Unavailable Luis Daniel Farias MD Primary Care Provider Loraine Veras Attending Unavailable Loraine Veras Admitting Unavailable Luis Daniel Farias Primary Care Unavailable Philly FRY, Nikole Vazquez Attending Unavailable MD Luis Daniel Farias Primary Care Provider REBA Veras Attending Provider Medications Current Medications Medication Drug Class(es) Dates Sig (Normalized) Sig (Original) ascorbic acid 500 mg oral capsule (1 source) Vitamin C Start: 10-11-2023 Ascorbic Acid (Vitamin C) Active MG PO October 11, 2023 12:00am DULoxetine 40 mg delayed release oral capsule (2 sources) Serotonin and Norepinephrine Reuptake Inhibitor Start: 10-11-2023 take 40 mg by mouth once daily Duloxetine Active 40 MG PO Daily October 11, 2023 12:00am take 1 capsule by mouth in the m orning DULoxetine (Cymbalta) [address] capsule Take 30 mg by mouth in the morning. 0 Active hydroCHLOROthiazide 25 mg / lisinopril 20 mg oral tablet (1 source) Thiazide Diuretic, Angiotensin Converting Enzyme Inhibitor take 1 tablet by mouth in the morning lisinopril-hydroCHLOROthiazide 20-25 MG tablet Take 1 tablet by mouth in the morning and 1 tablet before bedtime. 0 Active lidocaine 0.05 mg/mg medicated patch (1 source) Antiarrhythmic, Amide Local Anesthetic St ak t: 24 apply 1 dose topically once daily Lidocaine Active 1 PATCH TOPICAL Daily October 11, 2023 12:00am leave on most painful area for up to 12 hrs lisinopril 20 mg oral tablet (1 source) Angiotensin Converting Enzyme Inhibitor St ar t: 24 take 20 mg by mouth twice daily Lisinopril Active 20 MG PO Twice daily October 11, 2023 12:00am Multivitamin (Daily Multi-Vitamin) tablet (1 source) [facility] t: 24 take 1 tablet by mouth once daily Multivitamin (Daily Multi-Vitamin) tablet Active 1 TAB PO Daily October 11, 2023 12:00am naproxen 500 mg delayed release oral tablet (1 source) Nonsteroidal Anti-inflammatory Drug take 1 tablet by mouth in the morning naproxen (EC Naprosyn) 500 MG EC tablet Take 500 mg by mouth in the morning and 500 mg in the evening. Take with meals. Do not crush, chew, or split.. 0 Active omeprazole 40 mg delayed release oral capsule (1 source) Proton Pump Inhibitor St ar t: 24 take 40 mg by mouth once daily Omeprazole Active 40 MG PO Daily October 11, 2023 12:00am phentermine hydrochloride 37.5 mg oral tablet (1 source) Sympathomimetic Amine Anorectic St ar t: take 1 tablet by mouth in the morning phentermine (Adipex-P) 37.5 MG tablet Indications: Obesity (BMI 30-39.9) Take 1 tablet (37.5 mg) by mouth in the morning. 30 tablet 0 08/22/2023 Active Vit A-Vhxntus-Xcjj-Rutin-H b196 (Bioflex) 424-62-03-40 mg tablet (1 source) St ar t: Vit N-Tgljyum-Dqoa-Rutin-Hb1 96 (Bioflex) 701-24-95-40 mg tablet Active TAB PO October 11, 2023 12:00am vitamin b12 1 mg/ml injectable solution (1 source) Vitamin B12 cyanocobalamin ( Vitamin B-12) 1000 MCG/ML injection Inject 1,000 mcg [...] of hip] Onset: 08-22-2023 08-22-2023 Chronic Other acquired deformities (1 source) Scoliosis of lumbar spine; Translations: [Scoliosis, unspecified] 10-11-2023 Chronic Other acquired deformities (1 source) Scoliosis, unspecified; Translations: [Scoliosis [and kyphoscoliosis], idiopathic] 10-11-2023 Chronic Other connective tissue disease (1 source) [...] Spondylosis; intervertebral disc disorders; other back problems (14 sources) Spondylosis without myelopathy or radiculopathy, lumbar region; Translations: [Other intervertebral disc degeneration, lumbar region] Onset: 04-12-2022 Resolved: 08-22-2023 Chronic Spondylosis; intervertebral disc disorders; other back problems (12 sources) Intervertebral disc disorders with radiculopathy, lumbar region; Translations: [Radiculopathy, lumbar region] Onset: 08-25-2022 Episodic Unclassified (4 sources) LOW BACK PAIN, UNSPECIFIED; Translations: [LOW BACK PAIN, UNSPECIFIED] Onset: 11-30-2022 Unclassified (3 sources) CONTACT W/AND (SUSP) EXPOS COVID-19; Translations: [CONTACT W/AND (SUSP) EXPOS COVID-19] Onset: 04-16-2022 Unclassified (1 source) Scoliosis, unspecified; Translations: [Scoliosis, unspecified] Onset: 10-11-2023 Varicose veins of lower extremity (1 source) [...] Test Name Value Interpretation Reference Range Facility XR lumbar spine 6V w bending on 10-11-2023 XR lumbar spine 6V w bending [facility] [place] [address] [place] [address] XRay Report Signed Patient: Maricruz Jung MR#: [id number] 2 : 1960 Acct:[id number] Age/Sex: 63 / F ADM Date: 10/11/23 Loc: XD Room: Type: [facility] Attending Dr: Loraine BRITTON Copies to: REBA Ariza Ordering Provider: REBA Ariza Date of Service: 10/11/23 XR/XR thoracic spine 2V: M54.9 - Dorsalgia, unspecified ([id number]) XR/XR lumbar spine 6V w bending: M54.9 - Dorsalgia, unspecified THORACIC SPINE - - 2 views, lumbar spine 6 views CLINICAL HISTORY: Spinal stenosis. Pain across lower back. COMPARISON: None FINDINGS: Thoracic spine: Vertebral body heights appear maintained with scattered endplate degenerative changes. Pedicles appear intact. Scoliosis of the thoracolumbar spine. Lumbar spine: Scoliosis. Vertebral body heights appear maintained with diffuse moderate to severe degenerative disc disease with relative sparing of L4-L5 with endplate and facet joint degenerative changes. No pathological motion on flexion or extension views. Limited right-sided sidebending. XR/XR thoracic spine 2V IMPRESSION: DEGENERATIVE CHANGES INVOLVING THE THORACIC AND LUMBAR SPINES WITH ASSOCIATED SCOLIOSIS. NO ACUTE BONY PROCESS IS SEEN. Impression dictated by: Reji Wick Jr., D.OJan10/11/2023 4:17 PM Dictation Location: [place] [address] Transcribed By: [facility] 10/11/23 161 Dictated By: Reji Wick Jr, DO 10/11/23 161 Signed By: 10/11/23 161 [facility] ALL C REACTIVE PROTEINon CRP [Mass/Vol] mg/L NINF - 0.50 mg/dL [facility] MRI LSPINE WO CONon 12-10-19 MRI LSPINE WO CON EXAMINATION: MRI LSPINE WO CON [...] WILFRED RAHMAN Date: 2022-12-09 11:57 Normal [facility] Covid-19 PCR (CVDTB)on 06-30 SARS-CoV-2 (COVID-19) RNA KEIRY+probe Ql (Unsp spec) Detected Critically abnormal NOT DETECTED [facility] Comment on above: Result Comment: This test is not yet approved or cleared by the [place] FDA. When there are no FDA-approved or cleared tests available, and other criteria are met, FDA can make tests available under an emergency access mechanism called an Emergency Use Authorization (EUA). The EUA for this test is supported by the [employer] Design Lead of Health and Human Service's declaration that [...] longer be used). Performed By: #### [facility] ####[facility] [address] [place], [place] [address]Bu. Nelsy Corrigan MG MAMM SCREEN 3D GAVIN CADon 06-09-2022 MG MAMM SCREEN 3D GAVIN CAD Patient: MARICRUZ JUNG Exam Date: 06/09/2022 : 1960 Gender:F Ordering : DR LUIS DANIEL FARIAS . Admission #: [id number] Family : Order #: [id number] CLICK HERE TO VIEW EXAM RADIOLOGY REPORT [...] unknown cancer at age 70. LOCATION: [facility] BREAST COMPOSITION: Scattered areas fibroglandular density. FINDINGS: [...] MD on 06/10/2022 at 09:05 Normal [facility] CBC AUTO DIFFon 06-02-2022 BASO # 0.0 103/ul Normal 0.0-0.1 [facility] Comment on above: Performed By: #### C BC ####[facility] [address] [place], [place] [address]Dr. Nelsy Corrigan Basophils/100 WBC (Bld) 0.6 % Normal 0.2-2.0 [facility] Comment on above: Performed By: #### C BC ####[facility] [address] [place], [place] [address]Dr. Nelsy Corrigan EO # 0.3 103/ul Normal 0.0-0.7 [facility] Comment on above: Performed By: #### C BC ####[facility] [address] [place], [place] [address]Dr. Nelsy Corrigan Eosinophils/100 WBC (Bld) 3.6 % Normal 0.9-7.0 [facility] Comment on above: Performed By: #### C BC ####[facility] [address] [place], [place] [address]DrJan Corrigan Erythrocyte distribution width (RBC) [Ratio] 13.8 % Normal 11.0-15.0 [facility] Comment on above: Performed By: #### C BC ####[facility] [address] [place] [address]Dr. Nelsy Corrigan Hematocrit (Bld) [Volume fraction] 37.2 % Normal 36.0-48.0 [facility] Comment on above: Performed By: #### C BC ####[facility] [address] [place], [place] [address]Dr. Nelsy Corrigan Hemoglobin (Bld) [Mass/Vol] 11.9 g/dL Critically low 12.0-16.0 [facility] Comment on above: Performed By: #### C BC ####[facility] [address] [place], [place] [address]Dr. Teresemarisa Corrigan IG # 0.02 10e3/ul Normal 0.00-0.03 [facility] Comment on above: Performed By: #### C BC ####[facility] [address] [place], [place] [address]Dr. Teresemarisa Corrigan IG % 0.3 % Normal 0.0-0.5 [facility] Comment on above: Performed By: #### C BC ####[facility] [address] [place], [place] [address]DrJan Nelsy Corrigan LYMPH # 1.6 103/ul Normal 1.2-3.8 [facility] Comment on above: Performed By: #### C BC ####[facility] [address] [place], [place] [address]Dr. Teresemarisa Corrigan Lymphocytes/100 WBC (Bld) 22.5 % Normal 20.5-60.0 [facility] Comment on above: Performed By: #### C BC ####[facility] [address] [place], [place] [address]Dr. Teresemarisa Corrigan MANUAL DIFF REQ NO Normal [facility] Comment on above: Performed By: #### C BC ####[facility] [address] [place], [place] [address]Dr. Teresemarisa Corrigan MCH (RBC) [Entitic mass] 29.3 pg Normal 26.7-34.0 [facility] Comment on above: Performed By: #### C BC ####[facility] [address] [place] [address]Dr. Nelsy Corrigan MCHC (RBC) [Mass/Vol] 32.0 g/dL Normal 29.9-35.2 [facility] Comment on above: Performed By: #### C BC ####[facility] [address] [place], [place] [address]DrJan Corrigan MCV (RBC) [Entitic vol] 91.6 fL Normal 81.0-99.0 [facility] Comment on above: Performed By: #### C BC ####[facility] [address] [place], [place] [address]DrJan Corrigan MONO # 0.5 103/ul Normal 0.3-0.8 [facility] Comment on above: Performed By: #### C BC ####[facility] [address] [place], [place] [address]Dr. Nelsy Corrigan Monocytes/100 WBC (Bld) 7.6 % Normal 1.7-12.0 [facility] Comment on above: Performed By: #### C BC ####[facility] [address] [place], [place] [address]DrJan Corrigan NEUT # 4.5 103/ul Normal 1.4-6.5 [facility] Comment on above: Performed By: #### C BC ####[facility] [address] [place], [place] [address]DrJan Corrigan Neutrophils/100 WBC (Bld) 65.4 % Normal 43.0-75.0 [facility] Comment on above: Performed By: #### C BC ####[facility] [address] [place], [place] [address]DrJan Corrigan Platelet mean volume (Bld) [Entitic vol] 10.2 fL Normal 9.5-13.5 [facility] Comment on above: Performed By: #### C BC ####[facility] [address] [place], [place] [address]Dr. Nelsy Corrigan PLT 341 103/ul Normal 150-450 [facility] Comment on above: Performed By: #### C BC ####[facility] [address] [place] [id number]. Nelsy Corrigan RBC 4.06 106/ul Critically low 4.20-5.40 [facility] Comment on above: Performed By: #### C BC ####[facility] [address] [place] [id number] Nelsy Shekhar WBC 6.9 103/ul Normal 4.0-11.0 [facility] Comment on above: Performed By: #### C BC ####[facility] [address] [place] [id number]. Nelsy Corrigan GLYCOHEMOGLOBIN A1Con 2021 ADA RECOMMENDATION SEE BELOW Normal [facility] Comment on above: Result Comment: ADA RECOMMENDED LIMIT 4.0 - 6.0 ADA THERAPEUTIC TARGET < 7.0 ACTION SUGGESTED > 7.0 Performed By: #### A 1C ####[facility] [address] [place] [id number]. Nelsy Corrigan Glucose [Mass/Vol] 114 mg/dL Normal [facility] Comment on above: Performed By: #### A 1C ####[facility] [address] [place] [id number]. Nelsy Corrigan HbA1c (Bld) [Mass fraction] 5.6 % Normal 4.5-6.2 [facility] Comment on above: Performed By: #### A 1C ####[facility] [address] [place] [id number]. Nelsy Corrigan LIPID PROFILEon 06-02-2022 CHOL-HDL RATIO NORM SEE BELOW Normal [facility] Comment on above: Result Comment: 3.3 - 4.4 LOW RISK 4.4 - 7.1 AVERAGE RISK 7.1 - 11.0 MODERATE RISK >11.0 HIGH RISK Performed By: #### L IVER, BMP, TSH, LIPID #### [facility] [address] [place], [place] [address] Dr. Nelsy Corrigan Cholesterol [Mass/Vol] 169 mg/dL Normal <=200 [facility] Comment on above: Performed By: #### L IVER, BMP, TSH, LIPID #### [facility] [address] [place] [address] [address] Nelsy Corrigan Cholesterol in HDL [Mass/Vol] 50 mg/dL Normal 40-60 [facility] Comment on above: Performed By: #### L IVER, BMP, TSH, LIPID #### [facility] [address] [place] [address] [address] Nelsy Corrigan Cholesterol in LDL [Mass/Vol] 97.8 mg/dL Normal [facility] Comment on above: Performed By: #### L IVER, BMP, TSH, LIPID #### [facility] [address] [place] [address] Dr. Nelsy Corrigan Cholesterol.total/Ch olesterol in HDL [Mass ratio] 3.4 {ratio} Normal [facility] Comment on above: Performed By: #### L IVER, BMP, TSH, LIPID #### [facility] [address] [place] [address] [address] Nelsy Corrigan HDL NORMAL > or = 60 mg/dl - LOW CARDIOVASCULAR RISK <40 mg/dl - HIGH CARDIOVASCULAR RISK Normal [facility] Comment on above: Performed By: #### L IVER, BMP, TSH, LIPID #### [facility] [address] [place] [address] [address] Nelsy Corrigan LDL CALC NORMAL SEE BELOW Normal [facility] Comment on above: Result Comment: <100 mg/dl OPTIMAL 100 - 129 mg/dl NEAR OR ABOVE OPTIMAL 130 - 159 mg/dl BORDERLINE HIGH 160 - 189 mg/dl HIGH >190 mg/dl VERY HIGH Performed By: #### L IVER, BMP, TSH, LIPID #### [facility] [address] [place] [address] [address] Nelsy Corrigan Triglyceride [Mass/Vol] 106 mg/dL Normal <=150 [facility] Comment on above: Performed By: #### L IVER, BMP, TSH, LIPID #### [facility] [address] [place] [address] [address] Nelsy Corrigan VLDL CALC 21.2 mg/dL Normal [facility] Comment on above: Performed By: #### L IVER, BMP, TSH, LIPID #### [facility] [address] [place] [address] Dr. Nelsy Corrigan LIVER PROFILEon 06-02-2022 Albumin [Mass/Vol] 3.6 g/dL Normal 3.4-5.0 [facility] Comment on above: Performed By: #### L IVER, BMP, TSH, LIPID #### [facility] [address] [place] [address] Dr. Nelsy Corrigan Albumin/Globulin [Mass ratio] 1.1 {ratio} Normal [facility] Comment on above: Performed By: #### L IVER, BMP, TSH, LIPID #### [facility] [address] [place] [address] Dr. Nelsy Corrigan ALP [Catalytic activity/Vol] 61 U/L Normal 46-116 [facility] Comment on above: Performed By: #### L IVER, BMP, TSH, LIPID #### [facility] [address] [place] [address] Dr. Nelsy Corrigan ALT [Catalytic activity/Vol] 27 U/L Normal 14-59 [facility] Comment on above: Performed By: #### L IVER, BMP, TSH, LIPID #### [facility] [address] [place] [address] Dr. Nelsy Corrigan AST [Catalytic activity/Vol] 20 U/L Normal 15-37 [facility] Comment on above: Performed By: #### L IVER, BMP, TSH, LIPID #### [facility] [address] [place] [address] Dr. Nelsy Corrigan BILI, CONJUGATED 0.1 mg/dL Normal 0.0-0.2 [facility] Comment on above: Performed By: #### L IVER, BMP, TSH, LIPID #### [facility] [address] [place] [address] Dr. Nelsy Corrigan Bilirubin [Mass/Vol] 0.4 mg/dL Normal 0.2-1.0 [facility] Comment on above: Performed By: #### L IVER, BMP, TSH, LIPID #### [facility] [address] [place] [address] [address] Nelsy Corrigan Globulin (S) [Mass/Vol] 3.2 g/dL Normal [facility] Comment on above: Performed By: #### L IVER, BMP, TSH, LIPID #### [facility] [address] [place] [address] Dr. Nelsy Corrigan Protein [Mass/Vol] 6.8 g/dL Normal 6.4-8.2 [facility] Comment on above: Performed By: #### L IVER, BMP, TSH, LIPID #### [facility] [address] [place] [address] Dr. Nelsy Corrigan PROF CHEM 8 (BAS METB)on Anion gap [Moles/Vol] 9.7 mmol/L Normal [facility] Comment on above: Performed By: #### L IVER, BMP, TSH, LIPID #### [facility] [address] [place] [address] Dr. Nelsy Corrigan Calcium [Mass/Vol] 10.4 mg/dL Critically high 8.5-10.1 [facility] Comment on above: Performed By: #### L IVER, BMP, TSH, LIPID #### [facility] [address] [place] [address] Dr. Nelsy Corrigan Chloride [Moles/Vol] 101 mmol/L Normal 98-107 [facility] Comment on above: Performed By: #### L IVER, BMP, TSH, LIPID #### [facility] [address] [place] [address] Dr. Nelsy Corrigan CO2 [Moles/Vol] 28.1 mmol/L Normal 21.0-32.0 [facility] Comment on above: Performed By: #### L IVER, BMP, TSH, LIPID #### [facility] [address] [place] [address] Dr. Nelsy Corrigan Creatinine [Mass/Vol] 0.69 mg/dL Normal 0.55-1.02 [facility] Comment on above: Performed By: #### L IVER, BMP, TSH, LIPID #### [facility] [address] [place] [address] [address] Nelsy Corrigan EGFR-AF AUSTRALIAN >60 Normal >=60 [facility] Comment on above: Performed By: #### L IVER, BMP, TSH, LIPID #### [facility] [address] [place] [address] [address] Nelsy Corrigan EGFR-NON AF AUSTRALIAN >60 Normal >=60 [facility] Comment on above: Performed By: #### L IVER, BMP, TSH, LIPID #### [facility] [address] [place] [address] [address] Nelsy Corrigan Glucose [Mass/Vol] 92 mg/dL Normal 74-106 [facility] Comment on above: Performed By: #### L IVER, BMP, TSH, LIPID #### [facility] [address] [place] [address] [address] Nelsy Corrigan Potassium [Moles/Vol] 3.8 mmol/L Normal 3.5-5.1 [facility] Comment on above: Performed By: #### L IVER, BMP, TSH, LIPID #### [facility] [address] [place] [address] [address] Nelsy Corrigan Sodium [Moles/Vol] 135 mmol/L Critically low 136-145 [facility] Comment on above: Performed By: #### L IVER, BMP, TSH, LIPID #### [facility] [address] [place] [address] [address] Nelsy Corrigan Urea nitrogen [Mass/Vol] 24.0 mg/dL Critically high 7.0-18.0 [facility] Comment on above: Performed By: #### L IVER, BMP, TSH, LIPID #### [facility] [address] [place] [address] [address] Nelsy Corrigan Urea nitrogen/Creatinine [Mass ratio] 34.8 mg/mg Normal [facility] Comment on above: Performed By: #### L IVER, BMP, TSH, LIPID #### [facility] [address] [place] [address] [address] Nelsy Corrigan TSHon 06-02-2022 TSH 1.422 uIU/mL Normal 0.358-3.740 [facility] Comment on above: Performed By: #### L IVER, BMP, TSH, LIPID #### [facility] [address] [place], [place] [address] Dr. Nelsy Corrigan VITAMIN B12on 06-02-2022 Cobalamin (Vitamin B12) [Mass/Vol] 878.0 pg/mL Normal 193.0-986.0 [facility] Comment on above: Performed By: #### V ITB12 #### [facility] [address] [place], [place] [address] Dr. Nelsy Corrigan Covid-19 PCR (CVDTBH)on 03-31 SARS-CoV-2 (COVID-19) RNA KEIRY+probe Ql (Unsp spec) Not detected Normal NOT DETECTED [facility] Comment on above: Result Comment: This test is not yet approved or cleared by the [place] FDA. When there are no FDA-approved or cleared tests available, and other criteria are met, FDA can make tests available under an emergency access mechanism called an Emergency Use Authorization (EUA). The EUA for this test is supported by the [place] of Health and Human Service's (HHS's) declaration [...] with SARS-CoV-2. Performed By: #### C VDT[facility] ####[facility] [address] [place], [place] [address]QbDr. Nelsy Corrigan Covid-19 PCR (CVDTBH)on SARS-CoV-2 (COVID-19) RNA KEIRY+probe Ql (Unsp spec) Not detected Normal NOT DETECTED [facility] Comment on above: Result Comment: This test is not yet approved or cleared by the [place] FDA. When there are no FDA-approved or cleared tests available, and other criteria are met, FDA can make tests available under an emergency access mechanism called an Emergency Use Authorization (EUA). The EUA for this test is supported by the [employer] of Health and Human Service's (HHS's) declaration [...] consistent with SARS-CoV-2. Performed By: #### C [facility] ####[facility] [id number] [place], [place] [address]JnJan Corrigan Vital Signs Date Time Vital Sign Value Performing Clinician Paco de jesus 10-11-2023 13:31-0400 Body height 160.02 cm MD Luis Daniel Farias Work Phone: [facility] 10-11-2023 13:31-0400 Body mass index (BMI) [Ratio] 26.9 kg/m2 MD Luis Daniel Farias Work Phone: [facility] 10-11-2023 13:31-0400 Body weight 68.94 kg MD Luis Daniel Farias Work Phone: [facility] Encounters Encounter Date Encounter Type Care Provider Facility Start: 10-11-2023 End: 10-11-2023 ambulatory Loraine Veras Facility:[facility] Start: 10-11-2023 End: 10-11-2023 ambulatory MD Luis Daniel Farias Work Phone: [facility] Work Phone: Start: 10-11-2023 End: 10-11-2023 Patient encounter procedure MD Luis Daniel Farias Work Phone: [facility]-X[facility] Work Phone: Start: 10-11-2023 End: 10-11-2023 Patient encounter procedure MD Luis Daniel Farias Work Phone: [facility] Neurosurgery Work Phone: Start: 10-09-2023 End: 10-10-2023 ambulatory Nikole Fraga MD Facility:[facility] Start: 09-22-2023 Non-patient / Non-visit MD Maira Farias Work Phone: [facility] Neurosurgery Work Phone: Start: 09-07-2023 Clinisync Result Encounter Generic External Data Provider [facility] External Department Unsolicited Start: 09-07-2023 Clinisync Result Encounter Generic External Data Provider [facility] External Department Unsolicited Start: 08-22-2023 End: 08-22-2023 ambulatory LUIS DANIEL FARIAS Not Available Start: 12-29-2022 ambulatory NARENDRANATH LAKSHMIPATHY . Facility: Start: 12-09-2022 End: 12-10-2022 ambulatory NARENDRANATH LAKSHMIPATHY [...] abnormal findings DR LUIS DANIEL FARIAS [facility] Start: 06-02-2022 End: 06-03-[address] LUIS DANIEL FARIAS Facility:[facility] Start: 06-02-2022 End: 06-03-2022 Encounter for general adult medical examination without abnormal findings DR LUIS DANIEL FARIAS Facility:[facility] Start: 05-12-2022 End: 05-13-2022 ambulatory PATRIA BARFIELD . Facility:[facility] Start: 04-16-2022 Encounter for preprocedural laboratory examination DR HECTOR TRENT . [facility] Start: 04-12-2022 End: 04-12-[address] [...] Date Procedure Procedure Detail Performing Clinician Start: 10-11-2023 Radiography of thora cic spine MD Luis Daniel Farias Work Phone: Start: 10-11-2023 X-ray of lumbar spin e, six views including bending views MD Luis Daniel Farias Work Phone: Start: 09-07-2023 ALL C REACTIVE PROTEIN Generic External Data Provider Start: 09-01-2023 Mammography Generic Pr ovider Plan of Treatment Date Care Activity Detail Author Start: 09-01-2024 [facility] Start: 12-05-2023 End: 12-05-2023 Patient encounter procedure 12/05/2023 1:15 PM EDT Office Visit [facility] [address] [place] [phone] Luis Daniel Farias MD [address] [place] [phone] [facility] Start: 11-20-2023 End: 11-20-2023 Patient encounter procedure 11/20/2023 11:30 AM EDT Office Visit [facility] [address] [place] [phone] Luis Daniel Farias MD [address] [place] [address] [facility] Start: 10-11-2023 Patient referral [facility] Work Phone: Start: 03-31-2023 Influenza vaccination Influenza Vaccine (#1) [facility] Start: 2023 Pneumococcal Vaccine: 65+ Years (1 - PCV) Pneumococcal Vaccine: 65+ Years (1 - PCV) [facility] Start: 01-08-1988 Screening for malignant neoplasm of cervix [facility] Start: 1979 Screening for malignant neoplasm of cervix Pap Smear [facility] Start: 1960 Medicare Annual Wellness (AWV) Medicare Annual Wellness (AWV) [facility] Start: 1960 Screening for malignant neoplasm of colon [facility] DXA Skeletal system.axial Views for bone density [facility] Patient referral [facility] Work Phone: Immunizations Immunization Date Immunization Notes Care Provider Fa cility 05-11-2022 influenza virus vacc ine, unspecified formulation Generic Provider [facility] Payers Date Payer Category Payer Self-pay 2023 Unknown 2022 Medicare [id number] 2022 Medicare [employer] [id number] 2022-Present [address] [place] [address] [id number] 1959 Unknown [id number] 1960 Unknown [id number] 2.16.840.1.507785.3.579.2.593 1958 Unknown [id number] 2.16.840.1.633798.3.579.2.593 1958 Unknown [id number] 2.16.840.1.744085.3.579.2.593 1958 Unknown [id number] 2.16.840.1.240411.3.579.2.593 1958 Unknown [id number] 2.16.840.1.354885.3.579.2.593 1958 Unknown [id number] 2.16.840.1.318786.3.579.2.593 1958 Unknown [id number] 2.16.840.1.589859.3.579.2.593 1958 Unknown [id number] 2.16.840.1.536684.3.579.2.593 1958 Unknown [id number] 2.16.840.1.917324.3.579.2.593 1958 Unknown [id number] 2.16.840.1.657890.3.579.2.593 1958 Unknown [id number] 2.16.840.1.700855.3.579.2.593 1958 Unknown [id number] 2.16.840.1.907241.3.579.2.593 1958 Unknown [id number] 2.16.840.1.517987.3.579.2.593 1958 Unknown [id number] 2.16.840.1.466484.3.579.2.593 1958 Unknown [id number] 2.16.840.1.914963.3.579.2.593 1958 Unknown [id number] 2.16.840.1.795783.3.579.2.593 1958 Unknown [id number] 2.16.840.1.266392.3.579.2.593 1958 Unknown [id number] 2.16.840.1.923287.3.579.2.593 1958 Unknown [id number] 2.16.840.1.162359.3.579.2.125 9 1958 Unknown [id number] 2.16.840.1.817944.3.579.2.196 Unknown [id number] 2.16.840.1.132381.3.579.2.531 Social History Date Type Detail Facility Start: 08-22-2023 Tobacco smoking stat [facility] Ex-smoker [facility] End: 07-31-2014 History of tobacco use Current smoker [facility] End: 07-31-2014 History of tobacco use Cigarette Smoker [facility] Start: 08-22-2023 Cigarettes smoked current (pack per day) - Reported 0.5 [facility] Start: 08-22-2023 Tobacco use and exposure Smokeless tobacco non-user [facility] Start: 08-22-2023 Tobacco use panel [facility] Start: 1960 Sex Assigned At Not on file N [facility] Start: 1960 Sex Assigned At Female F [facility] Consultation note 11-24-2022 Note Date & Type [...] our patients to inform us about any gmtr-ppr-kwojgnh medications or herbal remedies/nutritional supplements/alternative remedies. 2. [...] options with their primary care provider. [facility] Consultation note 08-25-2022 Note Date & Type [...] in the clinic in three months. [facility] Consultation note 08-11-2022 Note Date & Type [...] we will see her next week. [facility] Consultation note 05-12-2022 Note Date & Type [...] and patient tolerated the procedure well. [facility] Consultation note 05-12-2022 Note Date & Type [...] indicated. Patient agrees with the plan. 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 The patient is complaining of 7 out [...] She agrees to move forward with that. [facility] Signed and Approved by: PATRIA BARFIELD . 02/10/2022 09:47:00 [facility] Evaluation note Note Date & Type Note Facility Evaluation note Diagnosis Onset Date Bulging lumbar disc acute Dorsal back pain acute Lumbar scoliosis acute Lumbar stenosis with neurogenic claudication acute Sacroiliac inflammation [facility] Work Phone: Summary Purpose Family History No Family History Records FoundNo Family History Records FoundNo Family History Records FoundNo Family History Records Found Advance Directives Advance Directive Response Recorded Date/ Time Advance Directives No September 28 2:43pm Chief Complaint and Reason for Visit Chief Complaint Ref Juana Ricktz- DDD, spinal stenosis m54.9 m46.1 m51.36 m41.9 m48.062 Reason for Visit Bulging lumbar disc Dorsal back pain Lumbar scoliosis Lumbar stenosis with neurogenic claudication Sacroiliac inflammation Additional Source Comments INFORMATION SOURCE (unrecogn ized section and content) DATE CREATED AUTHOR 01/06/2023 [facility] DATE CREATED AUTHOR AUTHOR'S ORGANIZ ATION 08/23/2023 [facility] DATE CREATED AUTHOR AUTHOR'S ORGANIZ ATION 10/13/2023 [facility] DATE CREATED AUTHOR AUTHOR'S WIN ATION 10/17/2023 [facility] Care Teams (unrecognized sec tion and content) [employer] Relationship Specialty Start Date End Date Luis Daniel Farias MD [address] [place] [address] PCP - General Family Medicine 08/22/23 Team Status: Active Member Role Status Dates Luis Daniel Farias MD Primary Care Provider Active Team Status: Active Member Role Status Dates REBA Leyva Attending Provider Active Start: September 22, 2023 Team Status: Inactive Member Role Status Dates REBA Leyva Attending Provider Active Start: October 11, 2023 End: October 11, 2023 Luis Daniel Farias MD Primary Care Provider Active S tart: October 11, 2023 End: October 11, 2023 Team Status: Inactive Member Role Status Dates Luis Daniel Farias MD Primary Care Provider Active S tart: October 11, 2023 End: October 11, 2023 REBA Leyva Attending Provider Active Start: October 11, 2023 End: October 11, 2023 Goals (unrecognized section and content) Goals may be documented in a n alternate section FOR RECORDS PERTAINING TO PATIENTS WHO ARE [...] BE BASED ON THE PRIMARY CLINICAL RECORDS. [employer] provides no warranty or guarantee of the accuracy or completeness of information in this document.
[2023-10-23 07:27] VITALS: BP 148/99; PULSE 80; RESP 16; TEMP 36.2; O2SAT 98
[2023-10-23 08:16] VITALS: BP 156/83; PULSE 74; RESP 18; O2SAT 96
[2023-10-23] MEDS: LIDOCAINE HCL 2% PF 100 MG/5 ML VIAL 1 ML INJ (08:16)
[2023-10-23] MEDS: TRIAMCINOLONE ACETONIDE 40 MG/ML VIAL INJ (08:16)
[2023-10-23] MEDS: IOHEXOL 240 MG/ML - 10 ML VIAL 24 MG INJ (08:16)
[2023-10-23] MEDS: BUPIVACAINE HCL 0.25% PF 25 MG/10 ML VIAL 2 ML INJ (08:16)
--- NOTE | 2023-10-23 08:18 | W.PM.PROCNOT ---
Date of procedure: 10/23/23 Pre-op diagnosis: Sacroiliitis, right Post-op diagnosis: same as pre-op Procedure: Procedure: Right sacroiliac joint injection Medications: Bupivacaine 0.25% 4cc, kenalog 40mg After informed consent was obtained, the patient was brought to the medical procedure unit and placed in the prone position, when a timeout was completed verifying correct patient, procedure, site, positioning, implant, and/or special equipment.? The skin overlying the area was prepped and draped in standard sterile fashion using alcohol.? A 25-gauge needle was inserted towards the right sacroiliac joint under direct fluoroscopic imaging.? Needle tip was advanced until the joint was encountered.? We instilled a total of 3 mL of solution.? Postoperatively needles were removed.? The patient tolerated the procedure well without complication.? The patient reported reduction in pain symptoms postoperatively. Anesthesia: Local Surgeon: Nikole Fraga Pathology: none sent Condition: stable Disposition: no change
[2023-10-23 12:49] VITALS: BP 158/90; PULSE 72; RESP 18; O2SAT 95
== END 2023-10-23 08:22 | disposition home or self-care (01) ==
PROVIDERS: PCP Family Medicine; Visit Provider Anesthesiology
DX: M46.1 Sacroiliitis, not elsewhere classified (principal)
CPT/HCPCS: 64451; Q9966

== ENCOUNTER 2023-10-31 15:53 | Outpatient (RCR) | payer MEDICARE, SELFPAY | END 2023-11-14 16:44 | disposition home or self-care (01) | LOC: PT 15:53 | PROVIDERS: PCP Family Medicine; Visit Provider Nurse Practitioner Family | DX: M54.9 Dorsalgia, unspecified (principal); M46.1 Sacroiliitis, not elsewhere classified; M51.36 Other intervertebral disc degeneration, lumbar region; M41.9 Scoliosis, unspecified; M48.062 Spinal stenosis, lumbar region with neurogenic claudication | CPT/HCPCS: 97012; 97110; 97113; 97163 ==

== ENCOUNTER 2023-11-01 13:14 | Outpatient (OUT) | payer MEDICARE, SELFPAY ==
--- NOTE | 2023-11-01 13:32 | P.CN_ITS ---
Consult Note: HPI Data of Consult Patient: known to practice within the last 3 years Requesting Physician: Juana Seaman NP Primary Care Provider: Luis Daniel Russell MD Consult Narrative Reason for consult: low back pain Narrative: Mesha Jung a pleasant 63 year old female presents to the office for evaluation of chronic low back and bilateral buttock pain, over the last 7 weeks patient has noticed increase in her pain as well as weakness of right leg. Patient went to her PCP who did imaging and the lumbar xray reveals progressive degenerative disc disease vs discitis. Pain today 7/10 sore aching and sharp pain, increasing to 10/10 with all activity, bending, twisting, carrying heavy objects. Patient having trouble with all activities and has had to cut back her hours at work, is now unable to work because of her pain and inability to carry out job duties. Denies fevers, chills, loss of bowel/bladder. Pt recently underwent Right L3-4, L4-5 transforaminal epidural steroid injection and right SIJ injection with 60% improvement ongoing. Patient was evaluated by NS and is now in PT and was prescribed a TENS unit, has not started utilizing it but plans to. cc:: CC: Juana Seaman NP Review of Systems ROS Status of ROS 10 or more systems reviewed and unremark able except as noted in history and below Musculoskeletal Reports: back pain PFSH PFSH Medical History Acid reflux ?K21.9 - Gastro-esophageal reflux disease without esophagitis (ICD-10) S/P extracorporeal shock wave therapy ?Z98.890 - Other specified postprocedural states (ICD-10) Low back pain ?M54.50 - Low back pain, unspecified (ICD-10) Osteoarthritis ?M19.90 - Unspecified osteoarthritis, unspecified site (ICD-10) Anemia ?D64.9 - Anemia, unspecified (ICD-10) Hiatal hernia ?K44.9 - Diaphragmatic hernia without obstruction or gangrene (ICD-10) Kidney stone ?N20.0 - Calculus of kidney (ICD-10) Former smoker ?Z87.891 - Personal history of nicotine dependence (ICD-10) Hypertension ?I10 - Essential (primary) hypertension (ICD-10) Surgical History Hx of appendectomy ?Z90.49 - Acquired absence of other specified parts of digestive tract (ICD- 10) H/O hemorrhoidectomy ?Z98.890 - Other specified postprocedural states (ICD-10) 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 (ICD-10) H/O section ?Z98.891 - History of uterine scar from previous surgery (ICD-10) H/O: hysterectomy ?Z90.710 - Acquired absence of both cervix and uterus (ICD-10) Meds Home Medications and Allergies Home Medications ?Medication ?Instructions ?Recorded ?Confirmed ?Type calcium 100 mg capsule mg PO QDAY 01/19/23 History cbd extract BID 01/19/23 History cholecalciferol (vitamin D3) 50 50 mcg PO DAILY 01/19/23 10/23/23 History mcg (2,000 unit) tablet (D3 DOTS) lisinopril 20 1 tab PO BID 01/19/23 10/23/23 History mg-hydrochlorothiazide 25 mg tablet multivitamin 1 tab PO DAILY 01/19/23 10/23/23 History naproxen 500 mg tablet 500 mg PO BID 01/24/23 10/09/23 History duloxetine 30 mg capsule,delayed mg PO 10/09/23 History release glucosamine-chondroitin 250 mg-200 2 tab PO QDAY 10/09/23 10/23/23 History mg tablet (Osteo Bi-Flex) magnesium 250 mg tablet 250 mg PO DAILY 10/09/23 10/23/23 History vitamin E 1,200 unit capsule cap PO QDAY 10/09/23 History vitamin K2 90 mcg capsule 90 mcg PO DAILY 10/09/23 10/23/23 History Allergies Allergy/AdvReac Type Severity Reaction Status Date / Time No Known Drug Allergies Allergy Verified 10/23/23 07:29 Exam Constitutional Documenting provider has reviewed patient's vital signs: yes Common normals: no apparent distress, oriented x3, healthy appearing, alert and well nourished General appearance: cooperative [facility] Common normals: normocephalic, hearing grossly normal bilaterally and moist oral mucous membranes Head and scalp: normocephalic Eye Common normals: PERRL Pupil: PERRL Neck & C-Spine Common normals: full ROM General: normal visual inspection Chest Common normals: inspection of chest normal Respiratory Common normals: normal respiratory effort, no retractions and no use of accessory muscles Back & Pelvis Thoracic spine/upper back: ROM limited and pain with ROM Lumbar spine/lower back: ROM limited, pain with ROM and straight leg raise negative bilaterally Sacroiliac joints: SI joints normal Other: sensation decreased in right L2,3 pattern strength 5/5 in BLE Extremity Common normals: normal to inspection and full ROM Right lower extremity: knee joint (pain with weight bearing and ROM) Left lower extremity: knee joint (pain with weight bearing and ROM) Neuro Common normals: oriented x3, CN's II-XII intact bilaterally, moves all extremities, no focal motor deficits, no sensory deficits noted and deep tendon reflexes 2+ bilaterally Sensorium/orientation: alert Gait (neuro): antalgic Motor exam: strength 5/5 throughout and no movement abnormalities noted Deep tendon reflexes: Rt Patellar (L4): 1+ and Rt Ankle (S1): 1+ Psych Common normals: mental status grossly normal, thought process normal, cooperative, affect normal, speech normal and activity/motor behavior normal Speech: normal speech Thought process: normal thought process Results Additional Findings Additional findings: If on a controlled substance or opioids, I have checked an [place] report on this patient and there are no aberrancies noted in the prescribing history.??If on a controlled substance or opioid a drug screen was completed and reviewed within the last year, and if there has not been a drug screen completed we ordered one today to monitor higher risk, state monitored pain medication use. As part of providing excellent, safe, comprehensive care, the following was completed at our patient's visit: 1. A medication reconciliation and review to ensure accurate knowledge of current/active medications, including asking our patients to inform us about any eszd-kvb-rasidnv medications or herbal remedies/nutritional supplements/alternative remedies. 2. A review to specifically ensure our patients have had annual screening for screening for depression, screening for tobacco use, and screening for unhealthy alcohol use. For concerning screenings had a discussion with the patient, provid ed patient education, and recommended follow-up with primary care provider when appropriate. If patient noted with a risk of falling, they received education on strength, gait, and balance training to prevent future risk of falling. Assessment and Plan Assessment and Plan (1) Lumbar spondylosis: (2) Lumbar radiculopathy: (3) Bilateral sacroiliitis: Assessment and Plan: bilateral positive EMMANUEL, gaenslens, thigh thrust, and SI compression. right > left (4) Muscle spasm: (5) Fibromyalgia: Plan continue f/u with Dr Sheets NS continue f/u with orthopedics as previously referred for right knee pain and instability continue HEP as tolerated continue naproxen/motrin PRN, mild benefit no side effects f/u 3 months, sooner if needed
== END 2023-11-01 13:15 | disposition home or self-care (01) ==
LOC: PM 13:14
PROVIDERS: PCP Family Medicine; Visit Provider Nurse Practitioner
DX: M47.816 Spondylosis without myelopathy or radiculopathy, lumbar region (principal); M54.16 Radiculopathy, lumbar region; M46.1 Sacroiliitis, not elsewhere classified; M62.838 Other muscle spasm; M79.7 Fibromyalgia
CPT/HCPCS: G0463

== ENCOUNTER 2023-11-03 08:51 | Outpatient (OUT) | payer MEDICARE, SELFPAY ==
--- NOTE | 2023-11-03 | XR_ITS ---
The [address] [address] Patient Name: MARICRUZ BOLTON MRN: [id number] date: 1960 Sex: F Assigned Patient Location: Current Patient Location: Accession/Order Number: [id number] Exam Date: 11/03/2023 09:05 Report Date: 11/04/2023 05:07 At the request of: TED GIRALDO Procedure: XR cervical spine w flex/ext EXAMINATION: XR cervical spine w flex/ext HISTORY: CERVICAL SPINE PAIN COMPARISON: No relevant comparison available. FINDINGS: BONES: No fracture, spondylolisthesis, or change in alignment during flexion and extension. Multilevel mild degenerative facet arthropathy. DISC SPACES: Moderate to marked narrowing C5-C6, C6-C7. PARASPINOUS: Negative. No paraspinous abnormality is seen. OTHER: Negative. XR/XR cervical spine w flex/ext IMPRESSION: 1. No appreciable acute abnormality. 2. Moderate to marked degenerative changes predominantly involving the lower cervical spine. Electronically authenticated by: WILFRED RAHMAN Date: 11/04/2023 05:07
--- NOTE | 2023-11-03 | XR_ITS ---
The [address] [address] Patient Name: MARICRUZ BOLTON MRN: [id number] date: 1960 Sex: F Assigned Patient Location: Current Patient Location: Accession/Order Number: [id number] Exam Date: 11/03/2023 09:05 Report Date: 11/04/2023 05:11 At the request of: TED GIRALDO Procedure: XR lumbar spine min 4V EXAMINATION: XR lumbar spine min 4V HISTORY: LUMBAR SPINE PAIN COMPARISON: XR lumbar spine 2-24 FINDINGS: BONES: Marked left convex curvature lumbar spine with right lateral wedging of L3 vertebral body. Moderate degenerative facet arthropathy L3-L4 through L5-S1. DISC SPACES: Moderate or greater narrowing at all lumbar levels with small posterior disc-osteophyte complexes. PARASPINOUS: Negative. No paraspinous abnormality is seen. OTHER: Negative. XR/XR lumbar spine min 4V IMPRESSION: 1. Moderate-marked degenerative changes of lumbar spine with interval progression of levoscoliosis and right lateral wedging of L3. 2. No significant listhesis or change in alignment during flexion and extension. Electronically authenticated by: WILFRED RAHMAN Date: 11/04/2023 05:11
--- OUTSIDE RECORDS SUMMARY | 2023-11-03 08:56 | XMS_ITS | CCD ---
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 30 tablet 0 08/22/2023 Active Vit Q-Uvcqzfm-Ytgg-Rutin-H b196 (Bioflex) 266-80-72-40 mg tablet (1 source) St ar t: Vit N-Tsryjov-Klcj-Rutin-Hb1 96 (Bioflex) 543-88-64-40 mg tablet Active TAB PO October 11, [...] 10-11-2023 XR lumbar spine 6V w bending [facility] Main [place] [address] [place] [address] XRay Report Signed Patient: Maricruz Jung MR#: [id number] 2 : 1960 Acct:[id number] Age/Sex: 63 / F ADM Date: 10/11/23 Loc: XD Room: Type: [facility] Attending Dr: Loraine BRITTON Copies to: REBA Ariza Ordering Provider: REBA Ariza Date of Service: 10/11/23 XR/XR thoracic spine 2V: M54.9 - Dorsalgia, unspecified ([id number]) XR/XR lumbar spine 6V w bending: M54.9 [...] Wick Jr., D.OJan10/11/2023 4:17 PM Dictation Location: [place] [address] Transcribed By: [facility] 10/11/23 161 Dictated By: Reji Wick Jr, DO 10/11/23 161 Signed By: 10/11/23 161 [facility] ALL C REACTIVE PROTEINon CRP [Mass/Vol] mg/L NINF - 0.50 mg/dL [facility] MRI LSPINE WO CONon 12-10-19 MRI LSPINE [...] WILFRED RAHMAN Date: 2022-12-09 11:57 Normal [facility] Covid-19 PCR (CVDTB)on 06-30 SARS-CoV-2 (COVID-19) RNA KEIRY+probe Ql (Unsp spec) Detected Critically abnormal NOT DETECTED [facility] Comment on above: Result Comment: This test is not yet approved or cleared by the [place] FDA. When there are no FDA-approved or cleared tests available, and other criteria are met, FDA can make tests available under an emergency access mechanism called an Emergency Use Authorization (EUA). The EUA for this test is supported by the Associate Professor Of Biology of Health and Human Service's declaration that [...] longer be used). Performed By: #### [facility] ####[facility] [address] [place], [place] [address]Js. Nelsy Corrigan MG MAMM SCREEN 3D GAVIN CADon 06-09-2022 MG MAMM SCREEN 3D GAVIN CAD Patient: AMRICRUZ JUNG Exam Date: 06/09/2022 : 1960 Gender:F Ordering : DR LUIS DANIEL FARIAS . Admission #: [id number] Family : Order #: [id number] CLICK HERE TO VIEW EXAM RADIOLOGY REPORT [...] unknown cancer at age 70. LOCATION: [facility] BREAST COMPOSITION: Scattered areas fibroglandular density. [...] MD on 06/10/2022 at 09:05 Normal [facility] CBC AUTO DIFFon 06-02-2022 BASO # 0.0 103/ul Normal 0.0-0.1 [facility] Comment on above: Performed By: #### C BC ####[facility] [address] [place], [place] [address]Dr. Nelsy Corrigan Basophils/100 WBC (Bld) 0.6 % Normal 0.2-2.0 [facility] Comment on above: Performed By: #### C BC ####[facility] [address] [place], [place] [address]Dr. Nelsy Corrigan EO # 0.3 103/ul Normal 0.0-0.7 [facility] Comment on above: Performed By: #### C BC ####[facility] [address] [place], [place] [address]Dr. Nelsy Corrigan Eosinophils/100 WBC (Bld) 3.6 % Normal 0.9-7.0 [facility] Comment on above: Performed By: #### C BC ####[facility] [address] [place], [place] [address]DrJan Corrigan Erythrocyte distribution width (RBC) [Ratio] 13.8 % Normal 11.0-15.0 [facility] Comment on above: Performed By: #### C BC ####[facility] [address] [place] [address]Dr. Nelsy Corrigan Hematocrit (Bld) [Volume fraction] 37.2 % Normal 36.0-48.0 [facility] Comment on above: Performed By: #### C BC ####[facility] A[address] [place], [place] [address]Dr. Nelsy Corrigan Hemoglobin (Bld) [Mass/Vol] 11.9 g/dL Critically low 12.0-16.0 [facility] Comment on above: Performed By: #### C BC ####[facility] X[address] [place], [place] [address]Dr. Teresemarisa Corrigan IG # 0.02 10e3/ul Normal 0.00-0.03 [facility] Comment on above: Performed By: #### C BC ####[facility] [address] [place], [place] [address]Dr. Teresemarisa Corrigan IG % 0.3 % Normal 0.0-0.5 [facility] Comment on above: Performed By: #### C BC ####[facility] [address] [place], [place] [address]DrJan Nelsy Corrigan LYMPH # 1.6 103/ul Normal 1.2-3.8 [facility] Comment on above: Performed By: #### C BC ####[facility] [address] [place], [place] [address]Dr. Teresemarisa Corrigan Lymphocytes/100 WBC (Bld) 22.5 % Normal 20.5-60.0 [facility] Comment on above: Performed By: #### C BC ####[facility] [address] [place], [place] [address]Dr. Teresemarisa Corrigan MANUAL DIFF REQ NO Normal [facility] Comment on above: Performed By: #### C BC ####[facility] [address] [place], [place] [address]Dr. Teresemarisa Corrigan MCH (RBC) [Entitic mass] 29.3 pg Normal 26.7-34.0 [facility] Comment on above: Performed By: #### C BC ####[facility] [address] [place] [address]Dr. Nelsy Corrigan MCHC (RBC) [Mass/Vol] 32.0 g/dL Normal 29.9-35.2 [facility] Comment on above: Performed By: #### C BC ####[facility] Z[address] [place], [place] [address]DrJan Corrigan MCV (RBC) [Entitic vol] 91.6 fL Normal 81.0-99.0 [facility] Comment on above: Performed By: #### C BC ####[facility] [address] [place], [place] [address]DrJan Corrigan MONO # 0.5 103/ul Normal 0.3-0.8 [facility] Comment on above: Performed By: #### C BC ####[facility] [address] [place], [place] [address]Dr. Nelsy Corrigan Monocytes/100 WBC (Bld) 7.6 % Normal 1.7-12.0 [facility] Comment on above: Performed By: #### C BC ####[facility] [address] [place], [place] [address]DrJan Corrigan NEUT # 4.5 103/ul Normal 1.4-6.5 [facility] Comment on above: Performed By: #### C BC ####[facility] [address] [place], [place] [address]DrJan Corrigan Neutrophils/100 WBC (Bld) 65.4 % Normal 43.0-75.0 [facility] Comment on above: Performed By: #### C BC ####[facility] [address] [place], [place] [address]DrJan Corrigan Platelet mean volume (Bld) [Entitic vol] 10.2 fL Normal 9.5-13.5 [facility] Comment on above: Performed By: #### C BC ####[facility] [address] [place], [place] [address]Dr. Nelsy Corrigan PLT 341 103/ul Normal 150-450 [facility] Comment on above: Performed By: #### C BC ####[facility] [address] [place] [id number]. Nelsy Corrigan RBC 4.06 106/ul Critically low 4.20-5.40 [facility] Comment on above: Performed By: #### C BC ####[facility] [address] [place] [id number] Nelsy Shekhar WBC 6.9 103/ul Normal 4.0-11.0 [facility] Comment on above: Performed By: #### C BC ####[facility] [address] [place] [id number]. Nelsy Corrigan GLYCOHEMOGLOBIN A1Con 2021 ADA RECOMMENDATION SEE BELOW Normal [facility] Comment on above: Result Comment: ADA RECOMMENDED LIMIT 4.0 - 6.0 ADA THERAPEUTIC TARGET < 7.0 ACTION SUGGESTED > 7.0 Performed By: #### A 1C ####[facility] [address] [place] [id number]. Nelsy Corrigan Glucose [Mass/Vol] 114 mg/dL Normal [facility] Comment on above: Performed By: #### A 1C ####[facility] [address] [place] [id number]. Nelsy Corrigan HbA1c (Bld) [Mass fraction] 5.6 % Normal 4.5-6.2 [facility] Comment on above: Performed By: #### A 1C ####[facility] [address] [place] [id number]. Nelsy Corrigan LIPID PROFILEon 06-02-2022 CHOL-HDL RATIO NORM SEE BELOW Normal [facility] Comment on above: Result Comment: 3.3 - 4.4 LOW RISK 4.4 - 7.1 AVERAGE RISK 7.1 - 11.0 MODERATE RISK >11.0 HIGH RISK Performed By: #### L IVER, BMP, TSH, LIPID #### [facility] [address] [place], [place] [address] Dr. Nelsy Corrigan Cholesterol [Mass/Vol] 169 mg/dL Normal <=200 [facility] Comment on above: Performed By: #### L IVER, BMP, TSH, LIPID #### [facility] [address] [place] [address] [address] Nelsy Corrigan Cholesterol in HDL [Mass/Vol] 50 mg/dL Normal 40-60 [facility] Comment on above: Performed By: #### L IVER, BMP, TSH, LIPID #### [facility] [address] [place] [address] [address] Nelsy Corrigan Cholesterol in LDL [Mass/Vol] 97.8 mg/dL Normal [facility] Comment on above: Performed By: #### L IVER, BMP, TSH, LIPID #### [facility] [address] [place] [address] Dr. Nelsy Corrigan Cholesterol.total/Ch olesterol in HDL [Mass ratio] 3.4 {ratio} Normal [facility] Comment on above: Performed By: #### L IVER, BMP, TSH, LIPID #### [facility] [address] [place] [address] [address] Nelsy Corrigan HDL NORMAL > or = 60 mg/dl - LOW CARDIOVASCULAR RISK <40 mg/dl - HIGH CARDIOVASCULAR RISK Normal [facility] Comment on above: Performed By: #### L IVER, BMP, TSH, LIPID #### [facility] [address] [place] [address] [address] Nelsy Corrigan LDL CALC NORMAL SEE BELOW Normal [facility] Comment on above: Result Comment: <100 mg/dl OPTIMAL 100 - 129 mg/dl NEAR OR ABOVE OPTIMAL 130 - 159 mg/dl BORDERLINE HIGH 160 - 189 mg/dl HIGH >190 mg/dl VERY HIGH Performed By: #### L IVER, BMP, TSH, LIPID #### [facility] [address] [place] [address] [address] Nelsy Corrigan Triglyceride [Mass/Vol] 106 mg/dL Normal <=150 [facility] Comment on above: Performed By: #### L IVER, BMP, TSH, LIPID #### [facility] [address] [place] [address] [address] Nelsy Corrigan VLDL CALC 21.2 mg/dL Normal [facility] Comment on above: Performed By: #### L IVER, BMP, TSH, LIPID #### [facility] [address] [place] [address] Dr. Nelsy Corrigan LIVER PROFILEon 06-02-2022 Albumin [Mass/Vol] 3.6 g/dL Normal 3.4-5.0 [facility] Comment on above: Performed By: #### L IVER, BMP, TSH, LIPID #### [facility] [address] [place] [address] Dr. Nelsy Corrigan Albumin/Globulin [Mass ratio] 1.1 {ratio} Normal [facility] Comment on above: Performed By: #### L IVER, BMP, TSH, LIPID #### [facility] [address] [place] [address] Dr. Nelsy Corrigan ALP [Catalytic activity/Vol] 61 U/L Normal 46-116 [facility] Comment on above: Performed By: #### L IVER, BMP, TSH, LIPID #### [facility] [address] [place] [address] Dr. Nelsy Corrigan ALT [Catalytic activity/Vol] 27 U/L Normal 14-59 [facility] Comment on above: Performed By: #### L IVER, BMP, TSH, LIPID #### [facility] [address] [place] [address] Dr. Nelsy Corrigan AST [Catalytic activity/Vol] 20 U/L Normal 15-37 [facility] Comment on above: Performed By: #### L IVER, BMP, TSH, LIPID #### [facility] [address] [place] [address] Dr. Nelsy Corrigan BILI, CONJUGATED 0.1 mg/dL Normal 0.0-0.2 [facility] Comment on above: Performed By: #### L IVER, BMP, TSH, LIPID #### [facility] [address] [place] [address] Dr. Nelsy Corrigan Bilirubin [Mass/Vol] 0.4 mg/dL Normal 0.2-1.0 [facility] Comment on above: Performed By: #### L IVER, BMP, TSH, LIPID #### [facility] [address] [place] [address] [address] Nelsy Corrigan Globulin (S) [Mass/Vol] 3.2 g/dL Normal [facility] Comment on above: Performed By: #### L IVER, BMP, TSH, LIPID #### [facility] [address] [place] [address] Dr. Nelsy Corrigan Protein [Mass/Vol] 6.8 g/dL Normal 6.4-8.2 [facility] Comment on above: Performed By: #### L IVER, BMP, TSH, LIPID #### [facility] [address] [place] [address] Dr. Nelsy Corrgian PROF CHEM 8 (BAS METB)on Anion gap [Moles/Vol] 9.7 mmol/L Normal [facility] Comment on above: Performed By: #### L IVER, BMP, TSH, LIPID #### [facility] [address] [place] [address] Dr. Nelsy Corrigan Calcium [Mass/Vol] 10.4 mg/dL Critically high 8.5-10.1 [facility] Comment on above: Performed By: #### L IVER, BMP, TSH, LIPID #### [facility] [address] [place] [address] Dr. Nelsy Corrigan Chloride [Moles/Vol] 101 mmol/L Normal 98-107 [facility] Comment on above: Performed By: #### L IVER, BMP, TSH, LIPID #### [facility] [address] [place] [address] Dr. Nelsy Corrigan CO2 [Moles/Vol] 28.1 mmol/L Normal 21.0-32.0 [facility] Comment on above: Performed By: #### L IVER, BMP, TSH, LIPID #### [facility] [address] [place] [address] Dr. Nelsy Corrigan Creatinine [Mass/Vol] 0.69 mg/dL Normal 0.55-1.02 [facility] Comment on above: Performed By: #### L IVER, BMP, TSH, LIPID #### [facility] [address] [place] [address] [address] Nelsy Corrigan EGFR-AF SLOVAK >60 Normal >=60 [facility] Comment on above: Performed By: #### L IVER, BMP, TSH, LIPID #### [facility] [address] [place] [address] [address] Nelsy Corrigan EGFR-NON AF SLOVAK >60 Normal >=60 [facility] Comment on above: Performed By: #### L IVER, BMP, TSH, LIPID #### [facility] [address] [place] [address] [address] Nelsy Corrigan Glucose [Mass/Vol] 92 mg/dL Normal 74-106 [facility] Comment on above: Performed By: #### L IVER, BMP, TSH, LIPID #### [facility] [address] [place] [address] [address] Nelsy Corrigan Potassium [Moles/Vol] 3.8 mmol/L Normal 3.5-5.1 [facility] Comment on above: Performed By: #### L IVER, BMP, TSH, LIPID #### [facility] [address] [place] [address] [address] Nelsy Corrigan Sodium [Moles/Vol] 135 mmol/L Critically low 136-145 [facility] Comment on above: Performed By: #### L IVER, BMP, TSH, LIPID #### [facility] [address] [place] [address] [address] Nelsy Corrigan Urea nitrogen [Mass/Vol] 24.0 mg/dL Critically high 7.0-18.0 [facility] Comment on above: Performed By: #### L IVER, BMP, TSH, LIPID #### [facility] [address] [place] [address] [address] Nelsy Corrigan Urea nitrogen/Creatinine [Mass ratio] 34.8 mg/mg Normal [facility] Comment on above: Performed By: #### L IVER, BMP, TSH, LIPID #### [facility] [address] [place] [address] [address] Nelsy Corrigan TSHon 06-02-2022 TSH 1.422 uIU/mL Normal 0.358-3.740 [facility] Comment on above: Performed By: #### L IVER, BMP, TSH, LIPID #### [facility] [address] [place], [place] [address] Dr. Nelsy Corrigan VITAMIN B12on 06-02-2022 Cobalamin (Vitamin B12) [Mass/Vol] 878.0 pg/mL Normal 193.0-986.0 [facility] Comment on above: Performed By: #### V ITB12 #### [facility] [address] [place], [place] [address] Dr. Nelsy Corrigan Covid-19 PCR (CVDTBH)on 03-31 SARS-CoV-2 (COVID-19) RNA KEIRY+probe Ql (Unsp spec) Not detected Normal NOT DETECTED [facility] Comment on above: Result Comment: This test is not yet approved or cleared by the [place] FDA. When there are no FDA-approved or cleared tests available, and other criteria are met, FDA can make tests available under an emergency access mechanism called an Emergency Use Authorization (EUA). The EUA for this test is supported by the [place] of Health and Human Service's (HHS's) declaration [...] with SARS-CoV-2. Performed By: #### C VDTBH ####[facility] [address] [place], [place] [address]MgDr. Nelsy Corrigan Covid-19 PCR (CVDTBH)on SARS-CoV-2 (COVID-19) RNA KEIRY+probe Ql (Unsp spec) Not detected Normal NOT DETECTED [facility] Comment on above: Result Comment: This test is not yet approved or cleared by the [place] FDA. When there are no FDA-approved or cleared tests available, and other criteria are met, FDA can make tests available under an emergency access mechanism called an Emergency Use Authorization (EUA). The EUA for this test is supported by the Barton of Health and Human Service's (HHS's) declaration [...] consistent with SARS-CoV-2. Performed By: #### C [facility] ####[facility] [address] [place], [place] [address]OcJan Corrigan Vital Signs Date Time Vital Sign Value Performing Clinician Paco de jesus 10-11-2023 13:31-0400 Body height 160.02 cm MD Luis Daniel Farias Work Phone: [facility] 10-11-2023 13:31-0400 Body mass index (BMI) [Ratio] 26.9 kg/m2 MD Luis Daniel Farias Work Phone: [facility] 10-11-2023 13:31-0400 Body weight 68.94 kg MD Luis Daniel Farias Work Phone: [facility] Encounters Encounter Date Encounter Type Care Provider Facility Start: 10-11-2023 End: 10-11-2023 ambulatory Loraine Veras Facility:[facility] Start: 10-11-2023 End: 10-11-2023 ambulatory MD Luis Daniel Farias Work Phone: [facility] Work Phone: Start: 10-11-2023 End: 10-11-2023 Patient encounter procedure MD Luis Daniel Farias Work Phone: [facility]-X[facility] Work Phone: Start: 10-11-2023 End: 10-11-2023 Patient encounter procedure MD Luis Daniel Farias Work Phone: [facility] Work Phone: Start: 10-09-2023 End: 10-10-2023 ambulatory Nikole Fraga MD Facility:[facility] Start: 09-22-2023 Non-patient / Non-visit MD Maira Farias Work Phone: [facility] Neurosurgery Work Phone: Start: 09-07-2023 [...] abnormal findings DR LUIS DANIEL FARIAS [facility] Start: 06-02-2022 End: 06-03-[address] LUIS DANIEL FARIAS Facility:[facility] Start: 06-02-2022 End: 06-03-2022 Encounter for general adult medical examination without abnormal findings DR LUIS DANIEL FARIAS Facility:[facility] Start: 05-12-2022 End: 05-13-2022 ambulatory PATRIA BARFIELD . Facility:[facility] Start: 04-16-2022 Encounter for preprocedural laboratory examination DR HECTOR TRENT . [facility] Start: 04-12-2022 End: 04-12-[address] [...] Screening for malignant neoplasm [facility] Start: 12-05-2023 End: 12-05-2023 Patient encounter procedure 12/05/2023 1:15 PM EDT Office Visit [facility] [address] [place] [phone] Luis Daniel Farias MD [address] [place] [phone] [facility] Start: 11-20-2023 End: 11-20-2023 Patient encounter procedure 11/20/2023 11:30 AM EDT Office Visit [facility] [address] [place] [phone] Luis Daniel Farias MD [address] [place] [address] [facility] Start: 10-11-2023 Patient referral [facility] Work Phone: Start: 03-31-2023 Influenza vaccination Influenza Vaccine (#1) [facility] Start: 2023 Pneumococcal Vaccine: 65+ Years (1 - PCV) Pneumococcal Vaccine: 65+ Years (1 - PCV) [facility] Start: 01-08-1988 Screening for malignant neoplasm of cervix [facility] Start: 1979 Screening for malignant neoplasm of cervix Pap Smear [facility] Start: 1960 Medicare Annual Wellness (AWV) Medicare Annual Wellness (AWV) [facility] Start: 1960 Screening for malignant neoplasm of colon [facility] DXA Skeletal system.axial Views for bone density [facility] Patient referral [facility] Work Phone: Immunizations Immunization Date Immunization Notes Care Provider Fa cility 05-11-2022 influenza virus vacc ine, unspecified formulation Generic Provider [facility] Payers Date Payer Category Payer Self-pay 2023 Unknown 2022 Medicare [id number] 2022 Medicare [facility] [employer] [employer] [employer] [employer] [id number] 2022-Present [address] [place] [address] [id number] 1959 Unknown [id number] 1960 Unknown [id number] 2.16.840.1.423675.3.579.2.593 1960 Unknown [id number] 2.16.840.1.652675.3.579.2.593 1960 Unknown [id number] 2.16.840.1.416915.3.579.2.593 1958 Unknown [id number] 2.16.840.1.450064.3.579.2.593 1958 Unknown [id number] 2.16.840.1.731673.3.579.2.593 1958 Unknown [id number] 2.16.840.1.398978.3.579.2.593 1958 Unknown [id number] 2.16.840.1.825445.3.579.2.593 1958 Unknown [id number] 2.16.840.1.704019.3.579.2.593 1958 Unknown [id number] 2.16.840.1.378918.3.579.2.593 1958 Unknown [id number] 2.16.840.1.520961.3.579.2.593 1958 Unknown [id number] 2.16.840.1.404528.3.579.2.593 1958 Unknown [id number] 2.16.840.1.178237.3.579.2.593 1958 Unknown [id number] 2.16.840.1.319278.3.579.2.593 1958 Unknown [id number] 2.16.840.1.869714.3.579.2.593 1958 Unknown [id number] 2.16.840.1.500829.3.579.2.593 1958 Unknown [id number] 2.16.840.1.526280.3.579.2.593 1958 Unknown [id number] 2.16.840.1.559687.3.579.2.593 1958 Unknown [id number] 2.16.840.1.020711.3.579.2.593 1958 Unknown [id number] 2.16.840.1.919494.3.579.2.125 9 1960 Unknown [id number] 2.16.840.1.066072.3.579.2.196 Unknown [id number] 2.16.840.1.902698.3.579.2.531 Social History Date Type Detail Facility Start: 08-22-2023 Tobacco smoking stat [facility] Ex-smoker [facility] End: 07-31-2014 History of tobacco use Current smoker [facility] End: 07-31-2014 History of tobacco use Cigarette Smoker [facility] Start: 08-22-2023 Cigarettes smoked current (pack per day) - Reported 0.5 [facility] Start: 08-22-2023 Tobacco use and exposure Smokeless tobacco non-user [facility] Start: 08-22-2023 Tobacco use panel [facility] Start: 1960 Sex Assigned At Not on file N [facility] Start: 1960 Sex Assigned At Female F [facility] Consultation note 11-24-2022 Note Date & [...] our patients to inform us about any intx-blm-tmmrwcr medications or herbal remedies/nutritional supplements/alternative remedies. 2. [...] options with their primary care provider. [facility] Consultation note 08-25-2022 Note Date & [...] in the clinic in three months. [facility] Consultation note 08-11-2022 Note Date & [...] we will see her next week. [facility] Consultation note 05-12-2022 Note Date & [...] and patient tolerated the procedure well. [facility] Consultation note 05-12-2022 Note Date & [...] indicated. Patient agrees with the plan. [facility] Consultation note 02-03-2022 Note Date & [...] call following a new referral to a [place] mingler operator. The patient is complaining of 7 out [...] She agrees to move forward with that. [facility] Signed and Approved by: PATRIA BARFIELD . 02/10/2022 09:47:00 [facility] Evaluation note Note Date & Type Note Facility Evaluation note Diagnosis Onset Date Bulging lumbar disc acute Dorsal back pain acute Lumbar scoliosis acute Lumbar stenosis with neurogenic claudication acute Sacroiliac inflammation [facility] Work Phone: Summary Purpose Family History No [...] and content) DATE CREATED AUTHOR 01/06/2023 [facility] DATE CREATED AUTHOR AUTHOR'S ORGANIZ ATION 08/23/2023 [facility] DATE CREATED AUTHOR AUTHOR'S ORGANIZ ATION 10/13/2023 [facility] DATE CREATED AUTHOR AUTHOR'S WIN ATION 10/17/2023 [facility] Care Teams (unrecognized sec tion and content) Heating Operators 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 [employer] provides no warranty or guarantee of the accuracy or completeness of information in this document.
== END 2023-11-03 08:52 | disposition home or self-care (01) ==
LOC: EC 08:51
PROVIDERS: PCP Family Medicine; Visit Provider Orthopaedic Surgery Orthopaedic Surgery of the Spine
DX: M54.50 Low back pain, unspecified (principal); M54.2 Cervicalgia; M51.36 Other intervertebral disc degeneration, lumbar region
CPT/HCPCS: 72052; 72110

== ENCOUNTER 2023-11-13 10:04 | Outpatient (OUT) | payer MEDICARE, SELFPAY ==
--- NOTE | 2023-11-13 10:09 | MR_ITS ---
[address] [address] Patient Name: MARICRUZ BOLTON MRN: [facility]:[id number] date: 1960 Sex: F Assigned Patient Location: MRI Current Patient Location: MRI Accession/Order Number: [id number] Exam Date: 11/13/2023 10:15 Report Date: 11/13/2023 13:17 At the request of: TED GIRALDO Procedure: MR cervical spine wo con EXAMINATION: MR cervical spine wo con HISTORY: Neck Pain M54.2, Lumbar Back Pain M54.50 COMPARISON: No relevant comparison available. TECHNIQUE: A variety of imaging planes and parameters were utilized for visualization of suspected pathology. FINDINGS: CRANIOCERVICAL AREA: Normal foramen magnum with no Chiari malformation. PARASPINAL AREA: Normal with no visible mass. BONES: Normal alignment with no acute fracture or spondylolisthesis. No bone edema CORD: Normal caliber, contour, and signal intensity. CERVICAL DISC LEVELS: C2-C3: Moderate degenerative disc disease is present without visible neural impingement. C3-C4: Moderate degenerative disc disease is present without visible neural impingement. C4-C5: Moderate degenerative disc disease is present without visible neural impingement. C5-C6: Disc collapse. Moderate diffuse disc/osteophyte complex and facet osteoarthropathy. No central canal or right foraminal stenosis. Moderate to severe narrowing of the left neural foramen C6-C7: Disc collapse with endplate sclerosis. Moderate diffuse disc/osteophyte complex. No central canal or right foraminal stenosis. Moderate to severe narrowing of the left neural foramen C7-T1:. Early degenerative disc disease is present without focal protrusion or neural impingement. MR/MR cervical spine wo con IMPRESSION: Moderate degenerative changes with moderate to severe left C5-C6 and C6-C7 foraminal stenosis Electronically authenticated by: RACHEL FROST Date: 11/13/2023 13:17
== END 2023-11-13 10:05 | disposition home or self-care (01) ==
LOC: MRI 10:04
PROVIDERS: PCP Family Medicine; Visit Provider Orthopaedic Surgery Orthopaedic Surgery of the Spine
DX: M54.50 Low back pain, unspecified (principal); M50.30 Other cervical disc degeneration, unspecified cervical region
CPT/HCPCS: 72141

== ENCOUNTER 2024-02-07 13:00 | Outpatient (OUT) | payer MEDICARE, SELFPAY ==
--- NOTE | 2024-02-07 13:15 | PM.CN ---
Consult Note: HPI Data of Consult Patient: known to practice within the last 3 years Requesting Physician: Juana Seaman NP Primary Care Provider: Luis Daniel Russell MD Consult Narrative Reason for consult: low back pain Narrative: Mesha Jung a pleasant 63 year old female presents to the office for evaluation of chronic low back and bilateral buttock pain. Pain today 4/10 sore aching and sharp pain, increasing to 10/10 with all activity, bending, twisting, carrying heavy objects. Denies fevers, chills, loss of bowel/bladder. Pt recently underwent Right L3-4, L4-5 transforaminal epidural steroid injection and right SIJ injection with >50% improvement ongoing. Has since retired from work and is noticing improvement in pain and functional ability. continues to find benefit to naproxen and PRN motrin, denies side effects. cc:: CC: Juana Seaman NP Review of Systems ROS Status of ROS 10 or more systems reviewed and unremarkable except as noted in history and below Musculoskeletal Reports: back pain PFSH PFSH Medical History Acid reflux ?K21.9 - Gastro-esophageal reflux disease without esophagitis (ICD-10) S/P extracorporeal shock wave therapy ?Z98.890 - Other specified postprocedural states (ICD-10) Low back pain ?M54.50 - Low back pain, unspecified (ICD-10) Osteoarthritis ?M19.90 - Unspecified osteoarthritis, unspecified site (ICD-10) Anemia ?D64.9 - Anemia, unspecified (ICD-10) Hiatal hernia ?K44.9 - Diaphragmatic hernia without obstruction or gangrene (ICD-10) Kidney stone ?N20.0 - Calculus of kidney (ICD-10) Former smoker ?Z87.891 - Personal history of nicotine dependence (ICD-10) Hypertension ?I10 - Essential (primary) hypertension (ICD-10) Surgical History Hx of appendectomy ?Z90.49 - Acquired absence of other specified parts of digestive tract (ICD-10) H/O hemorrhoidectomy ?Z98.890 - Other specified postprocedural states (ICD-10) 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 (ICD-10) H/O section ?Z98.891 - History of uterine scar from previous surgery (ICD-10) H/O: hysterectomy ?Z90.710 - Acquired absence of both cervix and uterus (ICD-10) Meds Home Medications and Allergies Home Medications ?Medication ?Instructions ?Recorded ?Confirmed ?Type calcium 100 mg capsule mg PO QDAY 01/19/23 History cbd extract BID 01/19/23 History cholecalciferol (vitamin D3) 50 50 mcg PO DAILY 01/19/23 10/23/23 History mcg (2,000 unit) tablet (D3 DOTS) lisinopril 20 1 tab PO BID 01/19/23 10/23/23 History mg-hydrochlorothiazide 25 mg tablet multivitamin 1 tab PO DAILY 01/19/23 10/23/23 History naproxen 500 mg tablet 500 mg PO BID 01/24/23 10/09/23 History duloxetine 30 mg capsule,delayed mg PO 10/09/23 History release glucosamine-chondroitin 250 mg-200 2 tab PO QDAY 10/09/23 10/23/23 History mg tablet (Osteo Bi-Flex) magnesium 250 mg tablet 250 mg PO DAILY 10/09/23 10/23/23 History vitamin E 1,200 unit capsule cap PO QDAY 10/09/23 History vitamin K2 90 mcg capsule 90 mcg PO DAILY 10/09/23 10/23/23 History Allergies Allergy/AdvReac Type Severity Reaction Status Date / Time No Known Drug Allergies Allergy Verified 10/23/23 07:29 Exam Constitutional Documenting provider has reviewed patient's vital signs: yes Common normals: no apparent distress, oriented x3, healthy appearing, alert and well nourished General appearance: cooperative [facility] Common normals: normocephalic, hearing grossly normal bilaterally and moist oral mucous membranes Head and scalp: normocephalic Eye Common normals: PERRL Pupil: PERRL Neck & C-Spine Common normals: full ROM General: normal visual inspection Chest Common normals: inspection of chest normal Respiratory Common normals: normal respiratory effort, no retractions and no use of accessory muscles Back & Pelvis Lumbar spine/lower back: normal to inspection, lumbar ROM normal and straight leg raise negative bilaterally Sacroiliac joints: SI joints normal Other: sensation intact negative facet loading strength 5/5 in BLE Extremity Common normals: normal to inspection and full ROM Right lower extremity: knee joint (pain with weight bearing and ROM) Left lower extremity: knee joint (pain with weight bearing and ROM) Neuro Common normals: oriented x3, CN's II-XII intact bilaterally, moves all extremities, no focal motor deficits, no sensory deficits noted, deep tendon reflexes 2+ bilaterally and gait normal Sensorium/orientation: alert Gait (neuro): antalgic Motor exam: strength 5/5 throughout and no movement abnormalities noted Deep tendon reflexes: Rt Patellar (L4): 1+ and Rt Ankle (S1): 1+ Psych Common normals: mental status grossly normal, thought process normal, cooperative, affect normal, speech normal and activity/motor behavior normal Speech: normal speech Thought process: normal thought process Results Additional Findings Additional findings: If on a controlled substance or opioids, I have checked an [place]AR[place] report on this patient and there are no aberrancies noted in the prescribing history.??If on a controlled substance or opioid a drug screen was completed and reviewed within the last year, and if there has not been a drug screen completed we ordered one today to monitor higher risk, state monitored pain medication use. As part of providing excellent, safe, comprehensive care, the following was completed at our patient's visit: 1. A medication reconciliation and review to ensure accurate knowledge of current/active medications, including asking our patients to inform us about any [id number] medications or herbal remedies/nutritional supplements/alternative remedies. 2. A review to specifically ensure our patients have had annual screening for screening for depression, screening for tobacco use, and screening for unhealthy alcohol use. For concerning screenings had a discussion with the patient, provided patient education, and recommended follow-up with primary care provider when appropriate. If patient noted with a risk of falling, they received education on strength, gait, and balance training to prevent future risk of falling. Assessment and Plan Assessment and Plan (1) Lumbar spondylosis: (2) Lumbar radiculopathy: (3) Bilateral sacroiliitis: (4) Muscle spasm: (5) Fibromyalgia: Plan continue HEP as tolerated continue naproxen/motrin PRN, mild benefit no side effects f/u 6 months, sooner if needed
== END 2024-02-07 13:01 | disposition home or self-care (01) ==
LOC: PM 13:00
PROVIDERS: PCP Family Medicine; Visit Provider Nurse Practitioner
DX: M47.26 Other spondylosis with radiculopathy, lumbar region (principal); M62.838 Other muscle spasm; M79.7 Fibromyalgia; M46.1 Sacroiliitis, not elsewhere classified
CPT/HCPCS: G0463

== ENCOUNTER 2025-03-05 13:28 | Outpatient (OUT) | payer OTHER, SELFPAY ==
--- OUTSIDE RECORDS SUMMARY | 2023-09-29 05:40 | XMS_ITS ---
Author Organization [facility] Address [address] [place] [address] Care Team Providers Care Pipe Recovery Specialist Name Role Phone Luis Daniel Russell Primary Care Provider Kevin Goldberg Han Unavailable [phone] Ruiz Tovar Unavailable [phone] REASON FOR VISIT Neck and back pain - valentina XR Medications Medication SIG (Take, Route, Frequency, Duration) Notes Start Date End Date Status lisinopril Active Tylenol Active Aleve Active DULoxetine Active Encounters Encounter Location Date Provider Diagnosis [facility] [address] [place] [address] [address] [place] [address] 09/29/2023 Ruiz Tovar Plan Of Treatment Pending Test Test Name Order Date Cervical spine,ap,lat,flex,ext - 82260 0 09/29/2023 Lumbar spine 2v flex and ext - [id number] 07/2023 Progress Notes * MARICRUZ BOLTON FDOB:[birth year] (65 yo F)Acc No.[id number]:09/29/2023 Patient: MARICRUZ IVEY Provider: Radha Power MD, PhD :1960 A ge:63 Y S ex:Female Date:09/29/2023 Address:[address] [place], [place] [id number] Pcp:Luis Daniel Russell Subjective: * Chief Complaints: * 1 . Neck and back pain - valentina XR. * Medical History: * Medications: T aking DULoxetine , Taking Tylenol , Taking Aleve , Taking lisinopril Objective: * Vitals: Assessment: Plan: * Treatment: * Procedure Codes: 2049 X-ray Cervical Spine, 4 views, 23209 X-ray Lumbar Spine, 2 view Forms: * Images: * Electronic signature of Selv on [facility] Mar[facility] MD, PHD on 03/05/2025 at 01:31 PM EDT Sign off status: Pending * Provider: Radha Power MD, PhD Date: 0 09/29/2023 Generated for Eliud cruz/Enoch/Fabiola on: 0 03/05/2025 01:31 PM EDT
--- OUTSIDE RECORDS SUMMARY | 2025-02-21 07:45 | XMS_ITS ---
Author Organization [facility] vices Address [address] [place] [address] [phone] Care Team Providers Care Geography Department Chair Name Role Phone Ana Cordero Unavailable [phone] Loraine Mathew Unavailable [phone] REASON FOR VISIT Rest #19-DO Social History Sex Assigned At : Social History Observation Description Sex Assigned At Female Encounters Encounter Location Date Provider Diagnosis [facility] [address] [place] [address] [phone] 02/21/2025 Loraine Mathew Plan Of Treatment Next Appt Details Provider Name:Loraine Mathew , 04/30/2025 10:30:00 AM, [address] [place] [address], [phone], Provider Name:Aspen Khalil , 05/19/2025 03:00:00 PM, [address] [place] [address], [phone], Progress Notes * Mesha JUNG FDOB:[birth year] (65 yo F)Acc No.[id number]:02/21/2025 Patient: Mesha IVEY Provider: Apolinar Mathew DMD :1960 A ge:65 Y S ex:Female Date:02/21/2025 Address:[address] [place] [id number] Subjective: * Chief Complaints: * 1 . Rest #19-DO. * Medical History: Objective: * Vitals: Assessment: Plan: * Treatment: * Billing Information: * Visit Code: * Procedure Codes: * Electronic signature of Ava Mathew DMD on 03/05/2025 at 01:31 PM EDT Sign off status: Pending * Provider: Apolinar Mathew DMD Date: 02/21/2025 Generated for Eliud Srinivasan on: 0 03/05/2025 01:31 PM EDT
--- NOTE | 2025-03-05 13:30 | MM_ITS ---
Patient Name: MARICRUZ BOLTON MR#: [id number] : 1960 Exam Date: 03/05/2025 Ordering Doctor: DR JEAN FARIAS . RADIOLOGY REPORT PROCEDURE: MM TOMOSYNTHESIS SCREENING BI COMPARISON: MM TOMOSYNTHESIS SCREENING BI, 09/01/2023. MG MAMM SCREEN 3D GAVIN CAD, 06/09/2022. MAMMO GAVIN SCREEN, 10/23/2015. MAMMO GAVIN SCREEN, 10/29/2013. INDICATIONS: Screening Calculator Name NCI Breast Cancer Risk Assessment Tool 5 Year Breast Cancer Risk 1.60% Lifetime Breast Cancer Risk 5.60% Personal Breast Cancer No Personal Ovarian Cancer No Treatments None Family Cancers Aunt-maternal with breast cancer at age 59; Father with unknown cancer at age ~72. LOCATION: [facility] BREAST COMPOSITION: There are scattered areas of fibroglandular density. FINDINGS: DIAGNOSTIC CATEGORY 1--NEGATIVE. RIGHT BREAST: No significant suspicious finding. LEFT BREAST: No significant suspicious finding. RECOMMENDATIONS: ROUTINE MAMMOGRAM AND CLINICAL EVALUATION IN 12 MONTHS. PLEASE NOTE: A NORMAL MAMMOGRAM DOES NOT EXCLUDE THE POSSIBILITY OF BREAST CANCER. A CLINICALLY SUSPICIOUS PALPABLE LUMP SHOULD BE BIOPSIED. Dictated by: Reji Wick DO on 03/05/2025 at 15:49 Approved by: Reji Wick DO on 03/05/2025 at 15:50
--- OUTSIDE RECORDS SUMMARY | 2025-03-05 13:31 | XMS_ITS | Clinical Summary ---
Author Organization [facility] Address [address] [place] [address] Care Team Providers Care Section Laborer Name Role Phone Luis Daniel Russell MD Primary Care Provider [phone] Luis Daniel Russell MD Unavailable Allergies No known active allergies Medications Syringe 20G X 1 3 ML miscIndications: B12 deficiency 1 each every 30 (thirty) days 10 each 5 4 Active DULoxetine (Cymbalta) [address] capsuleIndicatio ns:Fibromyalgia Take 1 capsule (30 mg) by mouth Daily 90 capsule 3 4 Active cyanocobalamin (Vitamin B-12) 1000 MCG/ML injectionIndicat ions:B12 deficiency INJECT 1 ML ONCE EVERY MONTH 3 mL 5 Active naproxen (Naprosyn) 500 MG tabletIndication s:Lumbar spondylosis Take 1 tablet (500 mg) by mouth 2 (two) times a day as needed for moderate pain 60 tablet 5 5 Active atorvastatin (Lipitor) 40 MG tablet Take 40 mg by mouth Daily Active lisinopril-hydro CHLOROthiazide 10-12.5 MG tabletIndication s:Essential hypertension, benign Take 1 tablet by mouth Daily 30 tablet 5 5 Active Active Problems Problem Noted Date Diagnosed Date Epigastric pain 02/05/2025 Assessment & Plan (02/05/2025 2:17 PM EDT): Pain and distention likely related to constipation. Improved since regular BM and monitor. Acute constipation 02/05/2025 Assessment & Plan (02/05/2025 2:17 PM EDT): Developed constipation and distention but resolved. Increase fiber and monitor. Stress reaction 08/27/2024 Assessment & Plan (08/27/2024 2:14 PM EST): Severe stress and not handling well. Continue cymbalta. Start xanax PRN. Overweight with body mass in dex (BMI) of 28 to 28.9 in adult 05/28/2024 Assessment & Plan (06/26/2024 9:00 AM EST): Patient doing well with adipex and lost 2 pounds in first month. Tolerating well with only mild dry mouth. Continue with dietary changes and less calories. Need to limit snacking and smaller portions. Continue healthier choices. Need regular aerobic exercise 30 minutes at a time 5-6 days a week. Refill for second month. OARRS reviewed. Continue meds as prescribed. If develop new or worsening symptoms contact office. Assessment & Plan (05/28/2024 2:56 PM EDT): Patient overweight and difficult time losing weight. Discussed proper diet and regular aerobic exercise. Recommend Weight Watchers and need to limit calories and smaller portions. Need to increase activity and regular aerobic exercise several days a week for 30 minutes at a time. Interested in adipex and warned of potential cardiac side effects. Script written for first month and will need to recheck weight in 1 month. OARRS reviewed. Continue medications as prescribed. Degenerative disc disease, cervical 11/20/2023 Assessment & Plan (08/27/2024 2:13 PM EST): Pain stable and use percocet PRN. Assessment & Plan (06/26/2024 9:00 AM EST): Pain stable and use percocet PRN. Assessment & Plan (05/28/2024 2:56 PM EDT): Pain stable and use percocet PRN. Assessment & Plan (12/21/2023 1:46 PM EDT): Pain stable and use percocet PRN. Assessment & Plan (11/20/2023 3:19 PM EDT): Worsening pain and abnormal MRI. Start percocet PRN. Follow up with specialists. B12 deficiency 08/22/2023 Essential hypertension, benign 08/22/2023 Assessment & Plan (01/03/2025 11:34 AM EDT): BP controlled and monitor PRN. Assessment & Plan (08/27/2024 2:13 PM EST): BP controlled and monitor PRN. Assessment & Plan (06/26/2024 9:00 AM EST): BP controlled and monitor PRN. Assessment & Plan (05/28/2024 2:56 PM EDT): BP controlled and monitor PRN. Assessment & Plan (12/21/2023 1:46 PM EDT): BP controlled and monitor PRN. Assessment & Plan (11/20/2023 3:19 PM EDT): BP controlled and monitor PRN. Assessment & Plan (08/22/2023 4:15 PM EST): BP controlled and monitor PRN. Fibromyalgia 08/22/2023 Assessment & Plan (11/20/2023 3:20 PM EDT): Increased pain and try to increase activity. Continue cymbalta. Assessment & Plan (08/22/2023 4:15 PM EST): Increased pain and try to increase activity. Continue cymbalta. Gastroesophageal reflux disease 08/22/2023 Lumbar spondylosis 08/22/2023 Assessment & Plan (01/03/2025 11:34 AM EDT): Increased stiffness and history of OA. Start percocet PRN. Continue aleve or motrin. Continue increased activity. Assessment & Plan (08/27/2024 2:13 PM EST): Pain stable and use percocet PRN. Assessment & Plan (06/26/2024 9:00 AM EST): Increased pain and treat with prednisone. Use percocet PRN. Assessment & Plan (05/28/2024 2:56 PM EDT): Pain unchanged and use OTC. Use percocet PRN. Assessment & Plan (12/21/2023 1:46 PM EDT): Pain unchanged and use OTC. Use percocet PRN. Assessment & Plan (11/20/2023 3:20 PM EDT): Pain unchanged and use OTC. Use percocet PRN. Assessment & Plan (08/22/2023 4:16 PM EST): Increased stiffness and check x-ray. Use aleve PRN. Prediabetes 08/22/2023 Varicose veins of both lower extremities with pa in 08/22/2023 Bilateral primary osteoarthritis of hip 08/22/19 24 Assessment & Plan (08/22/2023 4:16 PM EST): Increased stiffness and check x-ray. Use aleve PRN. Primary osteoarthritis of hands, bilateral 08/22 Assessment & Plan (08/22/2023 4:16 PM EST): Increased stiffness and check x-ray. Use aleve PRN. Bilateral primary osteoarthritis of knee 024 Assessment & Plan (01/03/2025 11:34 AM EDT): Increased stiffness and history of OA. Start percocet PRN. Continue aleve or motrin. Continue increased activity. Assessment & Plan (08/22/2023 4:16 PM EST): Increased stiffness and check x-ray. Use aleve PRN. Chronic foot pain, right 08/22/2023 Resolved Problems Problem Noted Date Diagnosed Date Resolved Date Osteoarthritis of spine with radiculopathy, lumbar region 08/22/2023 08/22/2023 Encounters Date Type Department Care Team Description 02/05/2025 1:45 PM EDT Office Visit [facility] [address] [place] [address] Luis Daniel Russell MD Epigastric pain (Primary Dx); Acute constipation 02/05/2025 Bamboo flowsheet [facility] [address] [place] [address] Luis Daniel Russell MD 01/03/2025 10:45 AM EDT [facility] [address] [place] [address] Luis Daniel Russell MD Essential hypertension, benign (Primary Dx); Bilateral primary osteoarthritis of knee; Lumbar spondylosis; Breast cancer screening by mammogram; Colon cancer screening 01/03/2025 Bamboo flowsheet [facility] [address] [place] [address] Luis Daniel Russell MD 12/24/2024 11:00 AM EDT [facility] [address] [place] [address] Luis Daniel Russell MD B12 deficiency (Primary Dx) from Last 3 Months Family History Medical History Relation Name Comments Cancer Father Heart disease Father Heart disease Maternal Grandmother Varicose veins Maternal Grandmother No Known Problems Mother Cancer Paternal Grandfather Relation Name Status Comments Father Maternal Grandmother Mother Paternal Grandfather Social History Tobacco Use Types Packs/Day Years Used Date Smoking Tobacco: Former Cigarettes 0.5 20 1 5 - 2015 Smokeless Tobacco: Never Tobacco Cessation:Counseling Given: Not Answered Social Connection and Isolat ion Panel [NHANES] Answer Date Recorded In a typical week, how many times do you talk on the phone with family, friends, or neighbors? More than three times a week 11/20/2023 How often do you get togethe r with friends or relatives? Once a week 11/20/2023 How often do you attend chur ch or protestant services? 1 to 4 times per year 11/20/2023 Do you belong to any clubs o r organizations such as adventist groups, unions, fraternal or athletic groups, or school groups? No 11/20/2023 How often do you attend meet ings of the clubs or organizations you belong to? Never 11/20/2023 Are you , , di vorced, , never , or living with a partner? 11/20/2023 AUDIT-C Answer Date Recorded Q1: How often do you have a drink containing alcohol? Never 11/20/2023 Q2: How many drinks containi ng alcohol do you have on a typical day when you are drinking? Patient does not drink Q3: How often do you have si x or more drinks on one occasion? Never 11/20/2023 Overall Financial Resource Strain (CARDIA) Answe r Date Recorded How hard is it for you to pa y for the very basics like food, housing, medical care, and heating? Somewhat hard 11/20/2023 [facility] - Occupational Stress Questionnaire Answer Date Recorded Do you feel stress - tense, restless, nervous, or anxious, or unable to sleep at night because your mind is troubled all the time - these days? Only a little 11/20/2023 Exercise Vital Sign Answer Date Recorde d On average, how many days pe r week do you engage in moderate to strenuous exercise (like a brisk walk)? 0 days 11/20/2023 On average, how many minutes do you engage in exercise at this level? 0 min 11/20/2023 Hunger Vital Sign Answer Date Recorded Within the past 12 months, y ou worried that your food would run out before you got the money to buy more. Sometimes true Within the past 12 months, t he food you bought just didn't last and you didn't have money to get more. Never true PRAPARE - Transportation Answer Date Re corded In the past 12 months, has l ack of transportation kept you from medical appointments or from getting medications? No 10/30 In the past 12 months, has l ack of transportation kept you from meetings, work, or from getting things needed for daily living? No 11/20/2023 Housing Stability Vital Sign Answer Tung e Recorded In the last 12 months, was t here a time when you were not able to pay the mortgage or rent on time? No 11/20/2023 Number of Places Lived in the Last Year Not on f ile 11/20/2023 In the last 12 months, was t here a time when you did not have a steady place to sleep or slept in a residential (including now)? No 11/20/2023 Comments Unknown Sex and Gender Information Value Date Recorded Sex Assigned at Not on file Legal Sex Female 6:37 PM EDT Gender Identity Not on file Sexual Orientation Not on file Last Filed Vital Signs Vital Sign Reading Time Taken Comments Blood Pressure 150/84 02/05/2025 1:57 PM EDT Pulse 86 02/05/2025 1:57 PM EDT Temperature 35.9 C (96.6 F) 02/05/2025 1:57 PM EDT Respiratory Rate 18 02/05/2025 1:57 PM EDT Oxygen Saturation 98% 02/05/2025 1:57 PM EDT Inhaled Oxygen Concentration - - Weight 72.1 kg (159 lb) 02/05/2025 1:57 PM EDT Height 160 cm (5' 3 ) 02/05/2025 1:57 PM EDT Body Mass Index 28.17 02/05/2025 1:57 PM EDT Plan of Treatment Upcoming Encounters Date Type Department Care Team (Late st Contact Info) Description 06/03/2025 9:00 AM EST [facility] [address] [place] [address] Luis Daniel Russell MD [address] [place] [address] Health Maintenance Due Date Last Done Comments CT Colonography 1960 Colonoscopy 1960 Colorectal Cancer Screening 1960 FIT-DNA 1960 FIT 1960 FOBT 1960 Sigmoidoscopy 1960 Pneumococcal Vaccine: 65+ Ye ars (1 of 1 - PCV) 01/08/2008 Mammogram 09/01/2024 09/01/2023, 10/26/2015 Influenza Vaccine (#1) 2025 05/11/2022 Medicare Annual Wellness (AWV) 05/28/2025 05/28/2024 (Patient Refused) Procedures Procedure Name Priority Date/Time Associated Diagnosis Comments MM TOMOSYNTHESIS SCREENING BI 09/01/2023 4:12 PM EST from Last 3 Months or Most Recently Relevant to Health Maintenance Results * MM TOMOSYNTHESIS SCREENING BI (09/01/2023 4:12 PM EST) Anatomical Region Laterality Modality Other 09/01/2023 4:12 PM EST Narrative 09/01/2023 4:13 [place] [address] Mammography Report Signed Patient: MARICRUZ JUNG MR#: [id number] : 1960 Acct:[id number] Age/Sex: 63 / F ADM Date: 09/01/23 Loc: MAMMO Attending Dr: Luis Daniel Russell M.D. Ordering Physician: Luis Daniel Russell M.D. Results: Date of Service: 09/01/23 Follow Up: Procedure(s): MM tomosynthesis screening BI Accession Number(s): [id number] cc: Luis Daniel Russell M.D. Patient Name: MARICRUZ JUNG MR#: [id number] : 1960 Exam Date: 09/01/2023 Ordering Doctor: DR Luis Daniel Russell . RADIOLOGY REPORT PROCEDURE: MM TOMOSYNTHESIS SCREENING BI COMPARISON: MG MAMM SCREEN 3D GAVIN CAD, 06/09/2022. MAMMO GAVIN SCREEN, 10/23/2015. MAMMO GAVIN SCREEN, 10/29/2013. INDICATIONS: Screening Calculator Name NCI Breast Cancer Risk Assessment Tool 5 Year Breast Cancer Risk 1.60% Lifetime Breast Cancer Risk 6.10% Personal Breast Cancer No Personal Ovarian Cancer No Treatments None Family Cancers Aunt-maternal with breast cancer at age 59; Father with unknown cancer at age 72. LOCATION: [facility] BREAST COMPOSITION: Scattered areas fibroglandular density. FINDINGS: DIAGNOSTIC CATEGORY 2--BENIGN FINDING: RIGHT BREAST: No significant suspicious finding. Scattered benign-appearing calcifications are present. Stable , chronic asymmetries. No significant change has occurred. LEFT BREAST: No significant suspicious finding. Scattered benign-appearing calcifications are present. Stable chronic asymmetries. No significant change has occurred. RECOMMENDATIONS: ROUTINE MAMMOGRAM AND CLINICAL EVALUATION IN 12 MONTHS. PLEASE NOTE: A NORMAL MAMMOGRAM DOES NOT EXCLUDE THE POSSIBILITY OF BREAST CANCER. A CLINICALLY SUSPICIOUS PALPABLE LUMP SHOULD BE BIOPSIED. Dictated by: Han Jackson M.D. on 09/01/2023 at 16:05 Approved by: Han Jackson M.D. on 09/01/2023 at 16:12 Dictated By: Han Jackson M.D. Signed By: 09/01/231612 DD/ 11 TD/TT: Scrap Iron Cutter: Procedure Note Radiology, Radiologist, MD - 09/01/2023 [place] [address] Mammography Report Signed Patient: MARICRUZ JUNG FMR#: [id number] : 1960cct:[id number] Age/Sex: 63 / FADM Date: 09/01/23 Loc: MAMMO Attending Dr: Luis Daniel Russell M.D. Ordering Physician: Luis Daniel Russell M.D.Results: Date of Service: 09/01/23Follow Up: Procedure(s): MM tomosynthesis screening BI Accession Number(s): [id number] cc: Luis Daniel Russell M.D. Patient Name: MARICRUZ JUNG MR#: [id number] : 1960 Exam Date: 09/01/2023 Ordering Doctor: DR Luis Daniel Montoya RADIOLOGY REPORT PROCEDURE: MM TOMOSYNTHESIS SCREENING BI COMPARISON: MG MAMM SCREEN 3D GAVIN CAD, 06/09/2022. MAMMO GAVIN SCREEN, 10/23/2015. MAMMO GAVIN SCREEN, 10/29/2013. INDICATIONS: Screening Calculator Name NCI Breast Cancer Risk Assessment Tool 5 Year Breast Cancer Risk 1.60% Lifetime Breast Cancer Risk 6.10% Personal Breast Cancer No Personal Ovarian Cancer No Treatments None Family Cancers Aunt-maternal with breast cancer at age 59; Father with unknown cancer at age 72. LOCATION: [facility] BREAST COMPOSITION: Scattered areas fibroglandular density. FINDINGS: DIAGNOSTIC CATEGORY 2--BENIGN FINDING: RIGHT BREAST: No significant suspicious finding. Scatteredbenign-appearing calcifications are present. Stable , chronic asymmetries. No significant change has occurred. LEFT BREAST: No significant suspicious finding. Scatteredbenign-appearing calcifications are present. Stable chronic asymmetries. No significant change has occurred. RECOMMENDATIONS: ROUTINE MAMMOGRAM AND CLINICAL EVALUATION IN 12 MONTHS. PLEASE NOTE: A NORMAL MAMMOGRAM DOES NOT EXCLUDE THE POSSIBILITY OFBREAST CANCER. A CLINICALLY SUSPICIOUS PALPABLE LUMP SHOULD BE BIOPSIED. Dictated by: Han Jackson M.D. on 09/01/2023 at 16:05 Approved by: Han Jackson M.D. on 09/01/2023 at 16:12 Dictated By: Han Jackson M.D. Signed By:09/01/231612 DD/ 11 TD/TT: Scrap Iron Cutter: Luis Daniel Russell MD [facility] Final Result from Last 3 Months or Most Recently Relevant to Health Maintenance Insurance [employer] Care Teams Section Laborer Relationship Specialty Start Date End Date Luis Daniel Russell MD [address] [facility] [place] [address] PCP - General Family Medicine 08/22/23 Luis Daniel Russell MD [address] [place] [place] [address] PCP - [facility]oted 12/30/23
--- OUTSIDE RECORDS SUMMARY | 2025-03-05 13:31 | XMS_ITS | Encounter Summary ---
Author Organization [facility] Address [address] [facility] [place] [address] Care Team Providers Care Rapid Extractor Operator Name Role Phone Jean Farias MD Primary Care Provider [phone] Jean Farias MD Unavailable Encounter Details Date Type Department Care Team ([facility] Contact Info) Description 09/01/2023 Clinisync Result Encounter [facility] External Department Unsolicited Jean Farias MD [address] [place] [address] Social History Tobacco Use Types Packs/Day Years Used Date Smoking Tobacco: Former Cigarettes 0.5 20 - 2014 Smokeless Tobacco: Never Comments Unknown Sex and Gender Information Value Date Recorded Sex Assigned at Not on file Legal Sex Female 6:37 PM EDT Gender Identity Not on file Sexual Orientation Not on file documented as of this encounter Plan of Treatment Upcoming Encounters Date Type Department Care Team ([facility] Contact Info) Description 06/03/2025 9:00 AM EST [facility] [address] [place] [address] Jean Farias MD [address] [place] [address] documented as of this encounter Procedures Procedure Name Priority Date/Time Associated Diagnosis Comments XR HIPS BILATERAL 2 VW WITH OR WITHOUT PELVIS 09/01/2023 7:15 PM EST documented in this encounter Results * XR hips bilateral 2 views (09/01/2023 7:15 PM EST) Anatomical Region Laterality Modality Lower Extremities, Hip Bilateral Radiograp hic Imaging 09/01/2023 7:15 PM EST Narrative 09/01/2023 7:17 PM EST [address] [address] XRay Report Signed Patient: MARICRUZ BOLTON MR#: [id number] : 1960 Acct:[id number] Age/Sex: 63 / F ADM Date: 09/01/23 Loc: MAMMO Attending Dr: Jean Farias M.D. Ordering Physician: Jean Farias M.D. Date of Service: 09/01/23 Procedure(s): XR hip GAVIN Accession Number(s): [id number] cc: Jean Farias M.D. [place] [address] Patient Name: MARICRUZ BOLTON MRN: [id number] date: 1960 Sex: F Assigned Patient Location: [facility] Current Patient Location: [facility] Accession/Order Number: [id number] Exam Date: 09/01/2023 13:38 Report Date: 09/01/2023 19:15 At the request of: JEAN FARIAS Procedure: XR hip GAVIN EXAM: XR hip GAVIN HISTORY: Bilateral Primary Osteoarthritis M16.0 COMPARISON: Pelvis x-ray 07/15/2021. TECHNIQUE: AP frog lateral x-ray right hip and left hip. FINDINGS: Right hip: Normal joint space. Minimal spurring superior lateral femoral head unchanged with adjacent chondrocalcinosis also similar to previous. No erosive or destructive changes. Normal mineralization. No fracture or focal bone lesion. Remainder of visualized right pelvis including SI joints unremarkable. Left hip: Normal joint space with minimal spurring similar to previous. Normal mineralization, no focal bone lesion or fracture. Soft tissue calcific aeration medially felt to be vascular. XR/XR hip GAVIN IMPRESSION: No acute appearing abnormality. Minor spurring right left unchanged. Faint chondrocalcinosis on the right unchanged Electronically authenticated by: HERNÁN BUCK Date: 09/01/2023 19:15 Dictated By: Hernán Buck M.D. Signed By: 09/01/231916 DD/ 14 TD/TT: Data Analyst: Procedure Note Radiology, Radiologist, MD - 09/01/2023 [place] [address] XRay Report Signed Patient: MARICRUZ BOLTON FMR#: [id number] : 1960cct:[id number] Age/Sex: 63 / FADM Date: 09/01/23 Loc: MAMMO Attending Dr: Jean Farias M.D. Ordering Physician: Jean Farias M.D. Date of Service: 09/01/23 Procedure(s): XR hip GAVIN Accession Number(s): [id number] cc: Jean Farias M.D. [place] [address] Patient Name: MARICRUZ BOLTON MRN: [id number] date: 1960 Sex: F Assigned Patient Location: [facility] Current Patient Location: [facility] Accession/Order Number: [id number] Exam Date: 09/01/2023 13:38 Report Date: 09/01/2023 19:15 At the request of: JEAN FARIAS Procedure: XR hip GAVIN EXAM: XR hip GAVIN HISTORY: Bilateral Primary Osteoarthritis M16.0 COMPARISON: Pelvis x-ray 07/15/2021. TECHNIQUE: AP frog lateral x-ray right hip and left hip. FINDINGS: Right hip: Normal joint space. Minimal spurring superior lateral femoral headunchanged with adjacent chondrocalcinosis also similar to previous. No erosive or destructive changes. Normal mineralization. No fracture or focal bonelesion. Remainder of visualized right pelvis including SI joints unremarkable. Left hip: Normal joint space with minimal spurring similar to previous. Normal mineralization, no focal bone lesion or fracture. Soft tissue calcific aeration medially felt to be vascular. XR/XR hip GAVIN IMPRESSION: No acute appearing abnormality. Minor spurring right left unchanged. Faint chondrocalcinosis on the right unchanged Electronically authenticated by: HERNÁN BUCK Date: 09/01/2023 19:15 Dictated By: Hernán Buck M.D. Signed By:09/01/231916 DD/ 14 TD/TT: Data Analyst: Jean Farias MD IMG XR PROCEDURES Final Result documented in this encounter Visit Diagnoses Not on filedocumented in this encounter Care Teams Rapid Extractor Operator Relationship Specialty Start Date End Date Jean Farias MD [address] [place] [address] PCP - General Family Medicine 08/22/23 Jean Farias MD [address] [place] [address] PCP - [facility]oted 12/30/23 documented as of this encounter
--- OUTSIDE RECORDS SUMMARY | 2025-03-05 13:31 | XMS_ITS | Encounter Summary ---
Author Organization [facility] Address [address] [facility] [place] [address] Care Team Providers Care Analyst Competitive Intelligence Name Role Phone Jean Farias MD Primary Care Provider [phone] Jean Farias MD Unavailable Encounter Details Date Type Department Care Team ([facility] Contact Info) Description 09/01/2023 Clinisync Result Encounter [facility] External Department Unsolicited Jean Farias MD [address] [place] [address] Social History Tobacco Use Types [...] Upcoming Encounters Date Type Department Care Team ([facility] Contact Info) Description 06/03/2025 9:00 AM EST Office Visit [facility] [address] [place] [address] Jean Farias MD [address] [place] [address] documented as of this encounter Procedures Procedure Name Priority Date/Time Associated Diagnosis Comments XR LUMBAR SPINE 2 OR 3V 09/01/2023 7:10 PM EST documented in this encounter Results * XR LUMBAR SPINE 2 OR 3V (09/01/2023 7:10 PM EST) Anatomical Region Laterality Modality Radiographic Susanna ging 09/01/2023 7:10 PM EST Narrative 09/01/2023 7:13 PM EST [address] [address] XRay Report Signed Patient: MARICRUZ BOLTON MR#: [id number] : 1960 Acct:[id number] Age/Sex: 63 / F ADM Date: 09/01/23 Loc: MAMMO Attending Dr: Jean Farias M.D. Ordering Physician: Jean Farias M.D. Date of Service: 09/01/23 Procedure(s): XR lumbar spine 2-3V Accession Number(s): [id number] cc: Jean Farias M.D. [address] [address] Patient Name: MARICRUZ BOLTON MRN: [facility]:[id number] date: 1960 Sex: F [facility]igned [facility] Current Patient Location: [facility] Accession/Order Number: [id number] Exam Date: 09/01/2023 13:38 Report Date: 09/01/2023 19:10 At the request of: JEAN FARIAS Procedure: XR lumbar spine 2-3V EXAM: XR lumbar spine 2-3V HISTORY: Lumbar Spondylosis M47.818 COMPARISON: 07/15/2021 plain films, MRI 12/09/2022. TECHNIQUE: AP, lateral L5-S1 spot x-ray lumbar spine. FINDINGS: 5 lumbar type vertebral bodies. No fracture or focal lytic bone destruction. Scoliosis convexity to the left increased since 07/15/2021. Straightening on the lateral view of loss of lordosis. No increasing subluxation. L1-L2: Moderate to severe disc space narrowing similar to previous. Vacuum disc again noted. Subchondral sclerosis superior endplate L2 slightly increased. Slightly increased anterior osteophytes. L2-L3: Moderate to severe disc space narrowing creased from previous with developing subchondral sclerosis and lucency in the adjacent endplates. L3-4: Disc space narrowing more prominent on the right similar to previous. Prominent anterior osteophytes slightly increased. L4-5: No significant disc space narrowing or spurring unchanged. L5-S1: Intact disc space with vacuum disc unchanged. Visualized sacrum intact. SI joints poorly visualized. XR/XR lumbar spine 2-3V IMPRESSION: 1. Scoliosis convexity to left slightly increased. Loss of lordosis with straightening on the lateral view. No increasing subluxation. 2. Multilevel degenerative disc disease most prominent in the upper lumbar spine. Significant progressive abnormality seen at L2-3 with increased disc space narrowing and developing subchondral sclerosis and lucency in the adjacent endplates. Question progression of degenerative disc disease versus discitis. 3. No fracture or acute bony abnormality. Electronically authenticated by: HERNÁN BUCK Date: 09/01/2023 19:10 Dictated By: Hernán Buck M.D. Signed By: 09/01/231912 DD/ 09 TD/TT: Machine Fixer: Procedure Note Radiology, Radiologist, MD - 09/01/2023 [place] [address] XRay Report Signed Patient: MARICRUZ BOLTON FMR#: [id number] : 1960cct:[id number] Age/Sex: 63 / FADM Date: 09/01/23 Loc: [facility] Attending Dr: Jean Farias M.D. Ordering Physician: Jean Farias M.D. Date of Service: 09/01/23 Procedure(s): XR lumbar spine 2-3V Accession Number(s): [id number] cc: Jean Farias M.D. [address] [place] [address] Patient Name: MARICRUZ BOLTON MRN: [facility]:[id number] date: 1960 Sex: F Assigned Patient Location: [facility] Current Patient Location: [facility] Accession/Order Number: [id number] Exam Date: 09/01/2023 13:38 Report Date: 09/01/2023 19:10 At the request of: JEAN FARIAS Procedure: XR lumbar spine 2-3V EXAM: XR lumbar spine 2-3V HISTORY: Lumbar Spondylosis M47.818 COMPARISON: 07/15/2021 plain films, MRI 12/09/2022. TECHNIQUE: AP, lateral L5-S1 spot x-ray lumbar spine. FINDINGS: 5 lumbar type vertebral bodies. No fracture or focal lytic bone destruction. Scoliosis convexity to the left increased since 07/15/2021. Straighteningon the lateral view of loss of lordosis. No increasing subluxation. L1-L2: Moderate to severe disc space narrowing similar to previous. Vacuum disc again noted. Subchondral sclerosis superior endplate L2 slightlyincreased. Slightly increased anterior osteophytes. L2-L3: Moderate to severe disc space narrowing creased from previous with developing subchondral sclerosis and lucency in the adjacent endplates. L3-4: Disc space narrowing more prominent on the right similar toprevious. Prominent anterior osteophytes slightly increased. L4-5: No significant disc space narrowing or spurring unchanged. L5-S1: Intact disc space with vacuum disc unchanged. Visualized sacrum intact. SI joints poorly visualized. XR/XR lumbar spine 2-3V IMPRESSION: 1. Scoliosis convexity to left slightly increased. Loss of lordosis with straightening on the lateral view. No increasing subluxation. 2. Multilevel degenerative disc disease most prominent in the upper lumbar spine. Significant progressive abnormality seen at L2-3 with increaseddisc space narrowing and developing subchondral sclerosis and lucency in the adjacent endplates. Question progression of degenerative disc diseaseversus discitis. 3. No fracture or acute bony abnormality. Electronically authenticated by: HERNÁN BUCK Date: 09/01/2023 19:10 Dictated By: Hernán Buck M.D. Signed By:09/01/231912 DD/ 09 TD/TT: Machine Fixer: Jean Farias MD IMG XR PROCEDURES Final Result documented in this encounter Visit Diagnoses Not on filedocumented in this encounter Care Teams Analyst Competitive Intelligence Relationship Specialty Start Date End Date Jean Farias MD [address] [place] [address] PCP - General Family Medicine 08/22/23 Jean Farias MD [address] [place] [address] PCP - [facility] 12/30/23 documented as of this encounter
--- OUTSIDE RECORDS SUMMARY | 2025-03-05 13:31 | XMS_ITS | Encounter Summary ---
Author Organization [facility] Address [address] [facility] [address] [place] [address] Care Team Providers Care Front Office Specialist Name Role Phone Luis Daniel Russell MD Primary Care Provider [phone] Luis Daniel Russell MD Unavailable Encounter Details Date Type Department Care Team ([facility] Contact Info) Description 09/16/2023 Clinisync Result Encounter [facility] External Department Unsolicited Provider, Generic External Data Social History Tobacco Use Types Packs/Day Years Used Date Smoking Tobacco: Former Cigarettes 0.5 20 1 2014 Smokeless Tobacco: Never Comments Unknown Sex and Gender Information Value Date Recorded Sex Assigned at Not on file Legal Sex Female 6:37 PM EDT Gender Identity Not on file Sexual Orientation Not on file documented as of this encounter Plan of Treatment Upcoming Encounters Date Type Department Care Team ([facility] Contact Info) Description 06/03/2025 9:00 AM EST [facility] [address] [place] [address] Luis Daniel Russell MD [address] [place] [address] documented as of this encounter Procedures Procedure Name Priority Date/Time Associated Diagnosis Comments MR LUMBAR SPINE W AND WO CONTRAST 09/16/2023 6:08 AM EST documented in this encounter Results * MR lumbar spine w and wo contrast (09/16/2023 6:08 AM EST) Anatomical Region Laterality Modality Spine, L-spine Magnetic Resonan ce 09/16/2023 6:08 AM EST Narrative 09/16/2023 6:11 [place] [address] Magnetic Resonance Report Signed Patient: MARICRUZ BOLTON MR#: [id number] : 1960 Acct:[id number] Age/Sex: 63 / F ADM Date: 09/15/23 Loc: LAB Attending Dr: Juana Rashid NP Ordering Physician: Juana Rashid NP Date of Service: 09/15/23 Procedure(s): MR lumbar spine wo/w con Accession Number(s): [id number] cc: Juana Rashid NP; Luis Daniel Russell M.D. The [place] [id number] Patient Name: MARICRUZ BOLTON MRN: [id number] date: 1960 Sex: F Assigned Patient Location: LAB Current Patient Location: LAB Accession/Order Number: [id number] Exam Date: 09/15/2023 13:45 Report Date: 09/16/2023 06:08 At the request of: JUANA RASHID Procedure: MR lumbar spine wo/w con MR lumbar spine wo/w con INDICATION: Right Lower Extremity Weakness, Lumbar Radiculopathy. TECHNIQUE: Multiplanar MR imaging of the lumbar spine was performed. IV contrast: The type and volume of contrast material is documented in the medical record. COMPARISON: None available. FINDINGS: SEGMENTATION: There are 7 cervical, 12 thoracic, and 5 lumbar type vertebrae. POSTOPERATIVE CHANGES: None. ALIGNMENT: There is levoconvex scoliosis of the lumbar spine with apex at the L3 level. There is normal AP alignment. VERTEBRAE: No evidence of acute fractures or significant losses of vertebral body heights. There are mild Modic type endplate changes at multiple levels. The bone marrow signal is mildly heterogeneous. CONUS: The conus terminates at the L1 level. No suspicious enhancement of the cauda equina. INTERVERTEBRAL DISCS: There is advanced degenerative disc disease at L1-L2, L2-L3, and L3-L4. There are Modic type I reactive endplate changes at L1-L2. There are Modic type I and III reactive endplate changes at L2-L3. There is moderate disc space narrowing and disc desiccation at T10-T11 and T11-T12. Mild disc space narrowing and disc desiccation at L4-L5 and L5-S1. CONGENITAL: None. T11-T12: There is a small broad-based disc bulge that effaces the thecal sac. Mild facet arthropathy. No significant spinal canal stenosis. Mild foraminal narrowing. T12-L1: Slight bulging of the posterior disc. No spinal canal or foraminal stenosis. L1-L2: There is a moderate broad-based disc bulge that effaces the thecal sac. Mild spinal canal narrowing. Mild narrowing of the left neural foramen. The right neural foramen is patent. L2-L3: There is a moderate posterior disc osteophyte complex that effaces the thecal sac. Bilateral facet arthropathy and ligamentum flavum thickening. This constellation of findings results in moderate spinal canal stenosis with significant subarticular narrowing. There is moderate bilateral foraminal stenosis. L3-L4: Posterior disc osteophyte complex effaces the thecal sac. Bilateral facet arthropathy and ligamentum flavum thickening. Mild to moderate spinal canal narrowing with significant subarticular narrowing on the right. Moderate to severe stenosis of the right neural foramen. Mild narrowing of the left neural foramen. L4-L5: There is a posterior disc osteophyte complex that effaces the thecal sac. Bilateral facet arthropathy and ligamentum flavum thickening. This constellation of findings results in severe spinal canal stenosis. Mild foraminal narrowing. L5-S1: Small posterior disc bulge. Bilateral facet arthropathy. No spinal canal stenosis. Mild to moderate narrowing of the left neural foramen. The right neural foramen is patent. PARASPINAL SOFT TISSUES: The paraspinal soft tissues are unremarkable. OTHER: Multiple cysts within the kidneys. MR/MR lumbar spine wo/w con IMPRESSION: There is levoconvex scoliosis of the lumbar spine. Advanced degenerative disc disease at L1-L2 through L3-L4. Severe spinal canal stenosis at L4-L5 due to posterior disc osteophyte complex, facet arthropathy, and ligamentum flavum thickening. There is moderate spinal canal stenosis at L2-L3 and mild to moderate spinal canal stenosis at L3-L4. Multilevel degenerative changes contribute to multilevel foraminal stenosis which is described level by level above. Electronically authenticated by: ILANA MELENDEZ Date: 09/16/2023 06:08 Dictated By: Ilana Melendez M.D. Signed By: 09/16/23610 DD/ 7 TD/TT: Stunt Performer: Procedure Note Radiology, Radiologist, MD - 09/18/2023 [place] [address] Magnetic Resonance Report Signed Patient: MARICRUZ BOLTON FMR#: [id number] : 1960cct:[id number] Age/Sex: 63 / FADM Date: 09/15/23 Loc: LAB Attending Dr: Juana Rashid NP Ordering Physician: Juana Rashid NP Date of Service: 09/15/23 Procedure(s): MR lumbar spine wo/w con Accession Number(s): [id number] cc: Juana Rashid NP; Luis Daniel Russell M.D. [facility] [place] [address] Patient Name: MARICRUZ BOLTON MRN: [id number] date: 1960 Sex: F Assigned Patient Location: LAB Current Patient Location: LAB Accession/Order Number: [id number] Exam Date: 09/15/2023 13:45 Report Date: 09/16/2023 06:08 At the request of: JUANA RASHID Procedure: MR lumbar spine wo/w con MR lumbar spine wo/w con INDICATION: Right Lower Extremity Weakness, Lumbar Radiculopathy. TECHNIQUE: Multiplanar MR imaging of the lumbar spine was performed. IV contrast: The type and volume of contrast material is documented in the medical record. COMPARISON: None available. FINDINGS: SEGMENTATION: There are 7 cervical, 12 thoracic, and 5 lumbar typevertebrae. POSTOPERATIVE CHANGES: None. ALIGNMENT: There is levoconvex scoliosis of the lumbar spine with apex atthe L3 level. There is normal AP alignment. VERTEBRAE: No evidence of acute fractures or significant losses ofvertebral body heights. There are mild Modic type endplate changes at multiplelevels. The bone marrow signal is mildly heterogeneous. CONUS: The conus terminates at the L1 level. No suspicious enhancement ofthe cauda equina. INTERVERTEBRAL DISCS: There is advanced degenerative disc disease atL1-L2, L2-L3, and L3-L4. There are Modic type I reactive endplate changes atL1-L2. There are Modic type I and III reactive endplate changes at L2-L3. Thereis moderate disc space narrowing and disc desiccation at T10-T11 and T11-T12. Mild disc space narrowing and disc desiccation at L4-L5 and L5-S1. CONGENITAL: None. T11-T12: There is a small broad-based disc bulge that effaces the thecalsac. Mild facet arthropathy. No significant spinal canal stenosis. Mildforaminal narrowing. T12-L1: Slight bulging of the posterior disc. No spinal canal or foraminal stenosis. L1-L2: There is a moderate broad-based disc bulge that effaces the thecalsac. Mild spinal canal narrowing. Mild narrowing of the left neural foramen.The right neural foramen is patent. L2-L3: There is a moderate posterior disc osteophyte complex that effacesthe thecal sac. Bilateral facet arthropathy and ligamentum flavum thickening.This constellation of findings results in moderate spinal canal stenosis with significant subarticular narrowing. There is moderate bilateral foraminal stenosis. L3-L4: Posterior disc osteophyte complex effaces the thecal sac. Bilateral facet arthropathy and ligamentum flavum thickening. Mild to moderatespinal canal narrowing with significant subarticular narrowing on the right.Moderate to severe stenosis of the right neural foramen. Mild narrowing of the left neural foramen. L4-L5: There is a posterior disc osteophyte complex that effaces thethecal sac. Bilateral facet arthropathy and ligamentum flavum thickening. This constellation of findings results in severe spinal canal stenosis. Mild foraminal narrowing. L5-S1: Small posterior disc bulge. Bilateral facet arthropathy. No spinal canal stenosis. Mild to moderate narrowing of the left neural foramen. The right neural foramen is patent. PARASPINAL SOFT TISSUES: The paraspinal soft tissues are unremarkable. OTHER: Multiple cysts within the kidneys. MR/MR lumbar spine wo/w con IMPRESSION: There is levoconvex scoliosis of the lumbar spine. Advanced degenerative disc disease at L1-L2 through L3-L4. Severe spinal canal stenosis at L4-L5 due to posterior disc osteophyte complex, facet arthropathy, and ligamentum flavum thickening. There is moderatespinal canal stenosis at L2-L3 and mild to moderate spinal canal stenosis atL3-L4. Multilevel degenerative changes contribute to multilevel foraminalstenosis which is described level by level above. Electronically authenticated by: ILANA MELENDEZ Date: 09/16/2023 06:08 Dictated By: Ilana Melendez M.D. Signed By:09/16/23610 DD/ 7 TD/TT: Stunt Performer: us Generic External Data Provider IMG MRI PROCEDURE S Final Result documented in this encounter Visit Diagnoses Not on filedocumented in this encounter Care Teams Front Office Specialist Relationship Specialty Start Date End Date Luis Daniel Russell MD [address] [place] [address] PCP - General Family Medicine 08/22/23 Luis Daniel Russell MD [address] [place] [address] PCP - [facility] 12/30/23 documented as of this encounter
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
--- OUTSIDE RECORDS SUMMARY | 2025-03-05 13:31 | XMS_ITS | Encounter Summary ---
Author Organization [facility] Address [address] [facility] [place] [address] Care Team Providers Care Bird Raiser Name Role Phone Jean Farias MD Primary Care Provider [phone] Jean Farias MD Unavailable Encounter Details Date Type Department Care Team ([facility] Contact Info) Description 09/01/2023 Clinisync Result Encounter [facility] External Department Unsolicited Jean Farias MD [address] [place] [address] Social History Tobacco Use Types [...] Upcoming Encounters Date Type Department Care Team ([facility] Contact Info) Description 06/03/2025 9:00 AM EST Office Visit [facility] [address] [place] [address] Jean Farias MD [address] [place] [address] documented as of this encounter Procedures Procedure Name Priority Date/Time Associated Diagnosis Comments XR KNEE 1-2 VIEWS RIGHT 09/01/2023 7:18 PM EST documented in this encounter Results * XR knee 1 or 2 views right (09/01/2023 7:18 PM EST) Anatomical Region Laterality Modality Lower Extremities, Knee Right [facility] 09/01/2023 7:18 PM EST Narrative 09/01/2023 7:20 PM EST [address] [address] XRay Report Signed Patient: MARICRUZ JUNG MR#: [id number] : 1960 Acct:[id number] Age/Sex: 63 / F ADM Date: 09/01/23 Loc: MAMMO Attending Dr: Jean Farias M.D. Ordering Physician: Jean Farias M.D. Date of Service: 09/01/23 Procedure(s): XR knee RT 2V Accession Number(s): [id number] cc: Jean Farias M.D. [place] [address] Patient Name: MARICRUZ JUNG MRN: [id number] date: 1960 Sex: F Assigned Patient Location: [facility] Current Patient Location: [facility] Accession/Order Number: [id number] Exam Date: 09/01/2023 13:38 Report Date: 09/01/2023 19:18 At the request of: JEAN FARIAS Procedure: XR knee RT 2V EXAM: XR knee RT 2V HISTORY: Bilateral Primary Osteoarthritis Of Knee M17.0 COMPARISON: No prior plain films. MRI right knee 2017 TECHNIQUE: AP lateral right knee. FINDINGS: Joint spaces appear preserved. Mild spurring. Extensive diffuse chondrocalcinosis. No erosive or destructive changes or fracture. No joint effusion. XR/XR knee RT 2V IMPRESSION: Minor spurring. Diffuse chondrocalcinosis.. No effusion or significant joint space narrowing. Electronically authenticated by: HERNÁN BUCK Date: 09/01/2023 19:18 Dictated By: Hernán Buck M.D. Signed By: 09/01/231919 DD/ 17 TD/TT: Roller Repairer: Procedure Note Radiology, Radiologist, MD - 09/04/[address] [address] XRay Report Signed Patient: MARICRUZ JUNG FMR#: [id number] : 1960cct:[id number] Age/Sex: 63 / FADM Date: 09/01/23 Loc: MAMMO Attending Dr: Jean Farias M.D. Ordering Physician: Jean Farias M.D. Date of Service: 09/01/23 Procedure(s): XR knee RT 2V Accession Number(s): [id number] cc: Jean Farias M.D. The [place] [id number] Patient Name: MARICRUZ JUNG MRN: [id number] date: 1960 Sex: F Assigned Patient Location: [facility] Current Patient Location: [facility] Accession/Order Number: [id number] Exam Date: 09/01/2023 13:38 Report Date: 09/01/2023 19:18 At the request of: JEAN FARIAS Procedure: XR knee RT 2V EXAM: XR knee RT 2V HISTORY: Bilateral Primary Osteoarthritis Of Knee M17.0 COMPARISON: No prior plain films. MRI right knee 2017 TECHNIQUE: AP lateral right knee. FINDINGS: Joint spaces appear preserved. Mild spurring. Extensive diffuse chondrocalcinosis. No erosive or destructive changes or fracture. No joint effusion. XR/XR knee RT 2V IMPRESSION: Minor spurring. Diffuse chondrocalcinosis.. No effusion or significantjoint space narrowing. Electronically authenticated by: HERNÁN BUCK Date: 09/01/2023 19:18 Dictated By: Hernán Buck M.D. Signed By:09/01/231919 DD/ 17 TD/TT: Roller Repairer: Jean Farias MD IMG XR PROCEDURES Final Result documented in this encounter Visit Diagnoses Not on filedocumented in this encounter Care Teams Bird Raiser Relationship Specialty Start Date End Date Jean Farias MD [address] [place] [address] PCP - General Family Medicine 08/22/23 Jean Farias MD [address] [place] [address] PCP - [facility] 12/30/23 documented as of this encounter
--- OUTSIDE RECORDS SUMMARY | 2025-03-05 13:31 | XMS_ITS | Clinical Summary ---
Author Organization [facility] Address [address], [address] [place] [address] Care Team Providers Care Rotary Veneer Machine Operator Name Role Phone Luis Daniel Russell MD Primary Care Provider + Allergies No known active allergies Medications lisinopril-hydr oCHLOROthiazide (PRINZIDE;ZESTO RETIC) 20-25 MG per tablet Take 1 tablet by mouth in the morning and at bedtime 06/04/2024 Active naproxen (NAPROSYN) 500 MG tablet Take 1 tablet by mouth 2 times daily as needed 08/08/2024 Active DULOXETINE HCL PO Take 40 mg by mouth daily Active medical marijuana Take by mouth as needed. Active atorvastatin (LIPITOR) 20 MG tabletIndicatio ns:Other chest pain,Primary hypertension,Fa lito history of heart disease,Dizzine ss,SOB (shortness of breath),Hypergl ycemia,Abnormal stress test Take 1 tablet by mouth at bedtime 90 tablet 3 09/16/2024 Active aspirin 81 MG EC tabletIndicatio ns:Other chest pain,Primary hypertension,Fa lito history of heart disease,Dizzine ss,SOB (shortness of breath),Hypergl ycemia,Abnormal stress test Take 1 tablet by mouth daily 90 tablet 3 09/16/2024 Active Active Problems Problem Noted Date Diagnosed Date Abnormal cardiovascular stress test 09/16/2024 Social History Tobacco Use Types Packs/Day Years Used Date Smoking Tobacco: Former Cigarettes Smokeless Tobacco: Never Tobacco Cessation:Counseling Given: Not Answered Comments:Quit smoking 10 years ago (2014) Alcohol Use Standard Drinks/Week Comments Not Currently 0 (1 standard drink = 0.6 oz pur e alcohol) Comments Unknown Sex and Gender Information Value Date Recorded Sex Assigned at Not on file Legal Sex Female 12:28 PM EST Gender Identity Not on file Sexual Orientation Not on file Last Filed Vital Signs Vital Sign Reading Time Taken Comments Blood Pressure 167/89 09/26/2024 12:15 PM EST Pulse 74 09/26/2024 12:15 PM EST Temperature 36.2 C (97.1 F) 09/26/2024 10:21 AM EST Respiratory Rate 12 09/26/2024 12:15 PM EST Oxygen Saturation 95% 09/26/2024 10:45 AM EST Inhaled Oxygen Concentration - - Weight 67.2 kg (148 lb 3.2 oz) 09/16/2024 9:50 A M EST Height 154.9 cm (5' 1 ) 09/16/2024 9:50 AM EST Body Mass Index 28 09/16/2024 9:50 AM EST Plan of Treatment Health Maintenance Due Date Last Done Comments Lipids 01/08/1968 Depression Screen 1970 Hepatitis C screen 01/08/1976 DTaP/Tdap/Td vaccine (1 - Tdap) 1977 Breast cancer screen 1998 Colonoscopy 2003 Colorectal Cancer Screen 2003 FIT/FOBT: Average risk 2003 Fecal-DNA (Cologuard): [place] ge risk 2003 Sigmoidoscopy/CT colonography 2003 Pneumococcal 50+ years Vacci ne (1 of 1 - PCV) 01/08/2008 Shingles vaccine (1 of 2) 01/08/2008 DEXA (modify frequency per FRAX score) 2013 COVID-19 Vaccine (3 - 2023-2 5 season) 2024 09/29/2020, 09/08/2020 Annual Wellness Visit (Medicare Advantage) 07/31/2024 Flu vaccine (#1) 02/28/2025 05/11/2022 Respiratory Syncytial Virus (RSV) or age 60 yrs+ (1 - 1-dose 75+ series) 2033 Hepatitis A vaccine Aged Out 10/17/2018, 04/13/2018 No longer eligible based on patient's age to complete this topic Hepatitis B vaccine Aged Out No longe r eligible based on patient's age to complete this topic Hib vaccine Aged Out No longer eligi ble based on patient's age to complete this topic Meningococcal (ACWY) vaccine Aged Out No longer eligible based on patient's age to complete this topic Meningococcal B vaccine Aged Out No l onger eligible based on patient's age to complete this topic Polio vaccine Aged Out No longer elig ible based on patient's age to complete this topic Insurance [employer] Advance Directives * Full Code (Latest Code Status on File) Date Activated Date Inactivated Comments 09/26/2024 10:21 AM 09/26/2024 2:36 PM * Full Code Date Activated Date Inactivated Comments 09/26/2024 8:27 AM 09/26/2024 10:21 AM Care Teams Rotary Veneer Machine Operator Relationship Specialty Start Date End Date Luis Daniel Russell MD [address] [facility] [place] [address] PCP - General Family Medicine 08/27/24
--- OUTSIDE RECORDS SUMMARY | 2025-03-05 13:31 | XMS_ITS | Encounter Summary ---
Author Organization [facility] Address [address] [place] [address] Care Team Providers Care Resident Medical Officer Name Role Phone Luis Daniel Russell MD Primary Care Provider [phone] Luis Daniel Russell MD Unavailable Encounter Details Date Type Department Care Team (Late st Contact Info) Description 08/29/2024 Orders Only [facility] [address] [place] [address] Unallocated, [facility] [address] [place] [address] Social History Tobacco Use Types Packs/Day Years Used Date Smoking Tobacco: Former Cigarettes 0.5 20 1 - 2014 Smokeless Tobacco: Never Social Connection and Isolat ion Panel [NHANES] Answer Date Recorded In a typical week, how many times do you talk on the phone with family, friends, or neighbors? More than three times a week 11/20/2023 How often do you get togethe r with friends or relatives? Once a week 11/20/2023 How often do you attend chur ch or amish services? 1 to 4 times per year 11/20/2023 Do you belong to any clubs o r organizations such as uatsdin groups, unions, fraternal or athletic groups, or [...] medical care, and heating? Somewhat hard 11/20/2023 [facility] - Occupational Stress [...] place to sleep or slept in a fpc (including now)? No 11/20/2023 Comments Unknown Sex and Gender Information Value Date Recorded Sex Assigned at Not on file Legal Sex Female 6:37 PM EDT Gender Identity Not on file Sexual Orientation Not on file documented as of this encounter Plan of Treatment Upcoming Encounters Date Type Department Care Team (Late st Contact Info) Description 06/03/2025 9:00 AM EST Office Visit [facility] [address] [place] [address] Luis Daniel Russell MD [address] [place] [address] documented as of this encounter Procedures Procedure Name Priority Date/Time Associated Diagnosis Comments STRESS TEST Routine 08/29/2024 9:12 AM EST documented in this encounter Results * STRESS TEST (08/29/2024 9:12 AM EST) Anatomical Region Laterality Modality Radiographic Susanna ging us [facility] Provider Unallocated IMG XR PROCEDURES F inal Result documented in this encounter Visit Diagnoses Not on filedocumented in this encounter Care Teams Resident Medical Officer Relationship Specialty Start Date End Date Luis Daniel Russell MD [address] [place] [address] PCP - General Family Medicine 08/22/23 Luis Daniel Russell MD [address] [place] [address] PCP - [facility] 12/30/23 documented as of this encounter
--- OUTSIDE RECORDS SUMMARY | 2025-03-05 13:32 | XMS_ITS | Clinical Summary ---
Author Organization [employer] tem Address [id number] [address] [place] [address] Care Team Providers Care Hair Designer Name Role Phone Luis Daniel Russell MD Primary Care Provider [phone] Allergies No known active allergies Medications ibuprofen (ADVIL,MOTRIN) 100 MG tablet Take 2 tablets (200 mg total) by mouth every 6 (six) hours as needed for pain. Active ibuprofen (ADVIL,MOTRIN) 200 mg tablet Take 1 tablet (200 mg total) by mouth every 6 (six) hours as needed for pain. Active multivit-iron- FA-calcium &mins (THERAGRAN-M) 9 mg iron-400 mcg tablet Take 1 tablet by mouth in the morning. Active cyanocobalamin (vitamin B-12) 100 MCG tablet Take 1 tablet (100 mcg total) by mouth in the morning. Active ascorbic acid, vitamin C, (vitamin C) 100 MG tablet Take 1 tablet (100 mg total) by mouth in the morning. Active omeprazole (PriLOSEC) 40 mg capsule Take 1 capsule (40 mg total) by mouth as needed. Active DULoxetine HCl, bulk, 100 % powder Take 40 mg by mouth. Active aspirin 81 mg Take 1 tablet (81 mg total) by mouth. 09/16/19 25 Active atorvastatin (LIPITOR) 40 mg tablet Take 1 tablet (40 mg total) by mouth in the morning. Active naproxen (NAPROSYN) 500 mg tablet Take 1 tablet (500 mg total) by mouth 2 (two) times a day as needed. 08/08/19 25 Active lisinopril-hyd roCHLOROthiazi de (PRINZIDE,ZEST ORETIC) 10-12.5 mg per tablet Take 1 tablet by mouth in the morning. Active sod sulf-pot chloride-mag sulf 1.479-0.188- 0.225 gram tabletIndicati ons:Altered bowel habits,Rectal bleeding Please see instructional sheet given by physicians office. 24 tablet 02/19/20 25 Active lisinopril (PRINIVIL,ZEST RIL) 20 mg tablet Take 1 tablet (20 mg total) by mouth in the morning and 1 tablet (20 mg total) before bedtime. 025 Discontin ued(Thera py completed ) oxyCODONE-acet aminophen (PERCOCET) 5-325 mg per tablet Take 1 tablet by mouth in the morning and 1 tablet before bedtime. 025 Discontin ued(Thera py completed ) Active Problems No known active problems Encounters Date Type Department Care Team Description 02/18/2025 1:30 PM EDT Office Visit [facility] [address] [place] [address] Loraine Chase APRN-CNP Upper abdominal pain (Primary Dx); Altered bowel habits; Nausea and vomiting, unspecified vomiting type; Rectal bleeding 02/18/2025 Travel 01[facility]13/2025 [facility] [address] [address] Loraine Chase APRN-CNP from Last 3 Months Family History Medical History Relation Name Comments Cancer Father Colon cancer Father Heart disease Father Prostate cancer Father Breast cancer Maternal Aunt 1 Breast cancer Maternal Aunt 2 Breast cancer Maternal Aunt 3 Cancer Paternal Grandfather Cancer Paternal Grandmother Relation Name Status Comments Father Maternal Aunt 1 Maternal Aunt 2 Maternal Aunt 3 Mother Alive Paternal Grandfather Paternal Grandmother Social History Tobacco Use Types Packs/Day Years Used Date Smoking Tobacco: Former Cigarettes Q uit: 05/16/2013 Smokeless Tobacco: Never Tobacco Cessation:Counseling Given: Not Answered Alcohol Use Standard Drinks/Week Comments No 0 (1 standard drink = 0.6 oz pur e alcohol) Childcare Answer Date Recorded Childcare Unknown 01/09/2019 Employment Answer Date Recorded Employment Unknown 01/09/2019 Purpose - Life Answer Date Recorded Purpose and direction in life Unknown Comments No Sex and Gender Information Value Date Recorded Sex Assigned at Not on file Legal Sex Female 11:33 AM EDT Gender Identity Not on file Sexual Orientation Not on file Last Filed Vital Signs Vital Sign Reading Time Taken Comments Blood Pressure 179/101 02/18/2025 1:39 PM EDT Pulse 85 05/25/2017 2:36 PM EDT Temperature 36.2 C (97.2 F) 05/25/2017 1:30 PM EDT Respiratory Rate 18 05/25/2017 2:36 PM EDT Oxygen Saturation 98% 05/25/2017 3:30 PM EDT Inhaled Oxygen Concentration - - Weight 72.2 kg (159 lb 3.2 oz) 02/18/2025 1:39 P M EDT Height 161.3 cm (5' 3.5 ) 02/18/2025 1:39 PM EDT Body Mass Index 27.76 02/18/2025 1:39 PM EDT Plan of Treatment Upcoming Encounters Date Type Department Care Team (Latest Contact Info) Description 03/11/2025 4:10 PM EDT Support Visit [facility] - Pre Admit [address] [place] [address] 03/17/2025 9:00 AM EDT Hospital Encounter [facility] - Surgery [address] [place] [address] [place] [address] [place] [address] 03/17/2025 9:00 AM EDT - 03/17/2025 9:45 AM EDT Surgery [facility] Surgery [address] [place] [address] [place] [address] [place] [address] [id number] ESOPHAGOGASTRODUODENOSCOPY DIAGNOSTIC [56044 (CPT )] Scheduled Procedures Name Priority Associated Diagnoses Date/Ti me ESOPHAGOGASTRODUODENOSCOPY DIAGNOSTIC nausea, vomiting, rectal bleeding 03/17/2025 9:00 AM EDT COLONOSCOPY DIAGNOSTIC / SCREENING nausea, vomiting, rectal bleeding 03/17/2025 9:00 AM EDT Health Maintenance Due Date Last Done Comments Depression Screening 1970 Adult BMI Follow Up Plan 01/08/1976 DTaP,Tdap and Td Vaccines (1 - Tdap) 1977 Zoster (Shingles) Vaccine (1 of 2) 01/08/2008 Fall Risk Screening 2023 COVID-19 Vaccine (3 - season) 03/31/202408/2020, 09/08/2020 Influenza Vaccine 03/31/2025 05/11/2022 Adult BMI Screening 02/18/2026 02/18/2025 Tobacco Screening 02/19/2026 02/19/2025 Goals Goal Patient Goal Type Associated Problems Recent Progress Patient-Stated? Author Autogenera ada Goal Care Plan Autogenerated Problem No Narayanan, [employer] Not on file Additional Health Concerns Active Problems Noted Date Diagnosed Date Autogenerated Problem 02/18/2025 Insurance [employer] Care Teams Hair Designer Relationship Specialty Start Date End Date Luis Daniel Russell MD PCP - General 05/10/17
--- OUTSIDE RECORDS SUMMARY | 2025-03-05 13:32 | XMS_ITS | Encounter Summary ---
Author Organization [facility] Address [address] [facility] [place] [address] Care Team Providers Care Fire Alarm Operator Name Role Phone Luis Daniel Russell MD Primary Care Provider [phone] Luis Daniel Russell MD Unavailable Encounter Details Date Type Department Care Team ([facility] Contact Info) Description 11/13/2023 Clinisync Result Encounter [facility] External Department Unsolicited [...] Upcoming Encounters Date Type Department Care Team ([facility] Contact Info) Description 06/03/2025 9:00 AM EST Office Visit [facility] [address] [place] [address] Luis Daniel Russell MD [address] [place] [address] documented as of this encounter Procedures Procedure Name Priority Date/Time Associated Diagnosis Comments MR CERVICAL SPINE WO CONTRAST 11/13/2023 1:17 PM EDT documented in this encounter Results * MR cervical spine wo contrast (11/13/2023 1:17 PM EDT) Anatomical Region Laterality Modality Spine, C-spine Magnetic Resonan ce 11/13/2023 1:17 PM EDT Narrative 11/13/2023 1:19 [place] [address] Magnetic Resonance Report Signed Patient: MARICRUZ JUNG MR#: [id number] : 1960 Acct:[id number] Age/Sex: 63 / F ADM Date: 11/13/23 Loc: MRI Attending Dr: Ted Power M.D. Ordering Physician: Ted Power M.D. Date of Service: 11/13/23 Procedure(s): MR cervical spine wo con Accession Number(s): [id number] cc: Luis Daniel Russell M.D.; Ted Power M.D. [place] [id number] Patient Name: MARICRUZ JUNG MRN: [facility]:[id number] date: 1960 Sex: F Assigned Patient Location: MRI Current Patient Location: MRI Accession/Order Number: [id number] Exam Date: 11/13/2023 10:15 Report Date: 11/13/2023 13:17 At the request of: TED POWER Procedure: MR cervical spine wo con EXAMINATION: MR cervical spine wo con HISTORY: Neck Pain M54.2, Lumbar Back Pain M54.50 COMPARISON: No relevant comparison available. TECHNIQUE: A variety of imaging planes and parameters were utilized for visualization of suspected pathology. FINDINGS: CRANIOCERVICAL AREA: Normal foramen magnum with no Chiari malformation. PARASPINAL AREA: Normal with no visible mass. BONES: Normal alignment with no acute fracture or spondylolisthesis. No bone edema CORD: Normal caliber, contour, and signal intensity. CERVICAL DISC LEVELS: C2-C3: Moderate degenerative disc disease is present without visible neural impingement. C3-C4: Moderate degenerative disc disease is present without visible neural impingement. C4-C5: Moderate degenerative disc disease is present without visible neural impingement. C5-C6: Disc collapse. Moderate diffuse disc/osteophyte complex and facet osteoarthropathy. No central canal or right foraminal stenosis. Moderate to severe narrowing of the left neural foramen C6-C7: Disc collapse with endplate sclerosis. Moderate diffuse disc/osteophyte complex. No central canal or right foraminal stenosis. Moderate to severe narrowing of the left neural foramen C7-T1:. Early degenerative disc disease is present without focal protrusion or neural impingement. MR/MR cervical spine wo con IMPRESSION: Moderate degenerative changes with moderate to severe left C5-C6 and C6-C7 foraminal stenosis Electronically authenticated by: RACHEL FROST Date: 11/13/2023 13:17 Dictated By: Rachel Frost M.D. Signed By: 11/13/23 1319 DD/ TD/TT: Bladder Tier: Procedure Note Radiology, Radiologist, MD - 11/13/2023 [place] [address] Magnetic Resonance Report Signed Patient: MARICRUZ JUNG FMR#: [id number] : 1960cct:[id number] Age/Sex: 63 / FADM Date: 11/13/23 Loc: MRI Attending Dr: Ted Power M.D. Ordering Physician: Ted Power M.D. Date of Service: 11/13/23 Procedure(s): MR cervical spine wo con Accession Number(s): [id number] cc: Luis Daniel Russell M.D.; Ted Power M.D. The [place] [id number] Patient Name: MARICRUZ JUNG MRN: [facility]:[id number] date: 1960 Sex: F Assigned Patient Location: MRI Current Patient Location: MRI Accession/Order Number: [id number] Exam Date: 11/13/2023 10:15 Report Date: 11/13/2023 13:17 At the request of: TED POWER Procedure: MR cervical spine wo con EXAMINATION: MR cervical spine wo con HISTORY: Neck Pain M54.2, Lumbar Back Pain M54.50 COMPARISON: No relevant comparison available. TECHNIQUE: A variety of imaging planes and parameters were utilized for visualization of suspected pathology. FINDINGS: CRANIOCERVICAL AREA: Normal foramen magnum with no Chiari malformation. PARASPINAL AREA: Normal with no visible mass. BONES: Normal alignment with no acute fracture or spondylolisthesis. [place] edema CORD: Normal caliber, contour, and signal intensity. CERVICAL DISC LEVELS: C2-C3: Moderate degenerative disc disease is present without visibleneural impingement. C3-C4: Moderate degenerative disc disease is present without visibleneural impingement. C4-C5: Moderate degenerative disc disease is present without visibleneural impingement. C5-C6: Disc collapse. Moderate diffuse disc/osteophyte complex and facet osteoarthropathy. No central canal or right foraminal stenosis. Moderateto severe narrowing of the left neural foramen C6-C7: Disc collapse with endplate sclerosis. Moderate diffusedisc/osteophyte complex. No central canal or right foraminal stenosis. Moderate to severe narrowing of the left neural foramen C7-T1:. Early degenerative disc disease is present without focalprotrusion or neural impingement. MR/MR cervical spine wo con IMPRESSION: Moderate degenerative changes with moderate to severe left C5-C6 and C6-C7 foraminal stenosis Electronically authenticated by: RACHEL FROST Date: 11/13/2023 13:17 Dictated By: Rachel Frost M.D. Signed By:11/13/23 1319 DD/ 1317 TD/TT: Bladder Tier: us Generic External Data Provider IMG MRI PROCEDURE S Final Result documented in this encounter Visit Diagnoses Not on filedocumented in this encounter Care Teams Fire Alarm Operator Relationship Specialty Start Date End Date Luis Daniel Russell MD [address] [place] [address] PCP - General Family Medicine 08/22/23 Luis Daniel Russell MD [address] [place] [address] PCP - [facility]oted 12/30/23 documented as of this encounter
--- OUTSIDE RECORDS SUMMARY | 2025-03-05 13:32 | XMS_ITS | Encounter Summary ---
Author Organization [facility] Address [address] [place] [address] Care Team Providers Care Driller And Broacher Name Role Phone Luis Daniel Russell MD Primary Care Provider [phone] Luis Daniel Russell MD Unavailable Encounter Details Date Type Department Care Team ([facility] Contact Info) Description 11/04/2023 Clinisync Result Encounter [facility] External Department Unsolicited [...] Upcoming Encounters Date Type Department Care Team ([facility] Contact Info) Description 06/03/2025 9:00 AM EST [facility] [address] [place] [address] Luis Daniel Russell MD [address] [place] [address] documented as of this encounter Procedures Procedure Name Priority Date/Time Associated Diagnosis Comments XR LUMBAR SPINE MIN 4V 11/04/2023 5:11 AM EDT documented in this encounter Results * XR LUMBAR SPINE MIN 4V (11/04/2023 5:11 AM EDT) Anatomical Region Laterality Modality Other 11/04/2023 5:11 AM EDT Narrative 11/04/2023 5:14 AM EDT [address] [address] XRay Report Signed Patient: MARICRUZ JUNG MR#: [id number] : 1960 Acct:[id number] Age/Sex: 63 / F ADM Date: 11/03/23 Loc: EC Attending Dr: Ted Power M.D. Ordering Physician: Ted Power M.D. Date of Service: 11/03/23 Procedure(s): XR lumbar spine min 4V Accession Number(s): [id number] cc: Luis Daniel Russell M.D.; Ted Power M.D. [place] [id number] Patient Name: MARICRUZ JUNG MRN: [id number] date: 1960 Sex: F Assigned Patient Location: Current Patient Location: Accession/Order Number: [id number] Exam Date: 11/03/2023 09:05 Report Date: 11/04/2023 05:11 At the request of: TED POWER Procedure: XR lumbar spine min 4V EXAMINATION: XR lumbar spine min 4V HISTORY: LUMBAR SPINE PAIN COMPARISON: XR lumbar spine 09-23 FINDINGS: BONES: Marked left convex curvature lumbar spine with right lateral wedging of L3 vertebral body. Moderate degenerative facet arthropathy L3-L4 through L5-S1. DISC SPACES: Moderate or greater narrowing at all lumbar levels with small posterior disc-osteophyte complexes. PARASPINOUS: Negative. No paraspinous abnormality is seen. OTHER: Negative. XR/XR lumbar spine min 4V IMPRESSION: 1. Moderate-marked degenerative changes of lumbar spine with interval progression of levoscoliosis and right lateral wedging of L3. 2. No significant listhesis or change in alignment during flexion and extension. Electronically authenticated by: HAN JACKSON Date: 11/04/2023 05:11 Dictated By: Han Jackson M.D. Signed By: 11/04/23513 DD/ 0511 TD/TT: Data Collection Specialist: Procedure Note Radiology, Radiologist, - 11/04/2023 The [place] [id number] XRay Report Signed Patient: MARICRUZ JUNG FMR#: [id number] : 1960cct:[id number] Age/Sex: 63 / FADM Date: 11/03/23 Loc: EC Attending Dr: Ted Power M.D. Ordering Physician: Ted Power M.D. Date of Service: 11/03/23 Procedure(s): XR lumbar spine min 4V Accession Number(s): [id number] cc: Luis Daniel Russell M.D.; Ted Power M.D. The [address] [address] Patient Name: MARICRUZ JUNG MRN: [facility]:[id number] date: 1960 Sex: F Assigned Patient Location: Current Patient Location: Accession/Order Number: [id number] Exam Date: 11/03/2023 09:05 Report Date: 11/04/2023 05:11 At the request of: TED POWER Procedure: XR lumbar spine min 4V EXAMINATION: XR lumbar spine min 4V HISTORY: LUMBAR SPINE PAIN COMPARISON: XR lumbar spine 2-24 FINDINGS: BONES: Marked left convex curvature lumbar spine with right lateralwedging of L3 vertebral body. Moderate degenerative facet arthropathy L3-L4 through L5-S1. DISC SPACES: Moderate or greater narrowing at all lumbar levels with small posterior disc-osteophyte complexes. PARASPINOUS: Negative. No paraspinous abnormality is seen. OTHER: Negative. XR/XR lumbar spine min 4V IMPRESSION: 1. Moderate-marked degenerative changes of lumbar spine with interval progression of levoscoliosis and right lateral wedging of L3. 2. No significant listhesis or change in alignment during flexion and extension. Electronically authenticated by: HAN JACKSON Date: 11/04/2023 05:11 Dictated By: Han Jackson M.D. Signed By:11/04/23 0514 DD/ 0511 TD/TT: Data Collection Specialist: us Generic External Data Provider [facility] Final Result documented in this encounter Visit Diagnoses Not on filedocumented in this encounter Care Teams Driller And Broacher Relationship Specialty Start Date End Date Luis Daniel Russell MD [address] [place] [address] PCP - General Family Medicine 08/22/23 Luis Daniel Russell MD [address] [place] [address] PCP - [facility] 12/30/23 documented as of this encounter
--- OUTSIDE RECORDS SUMMARY | 2025-03-05 13:32 | XMS_ITS | Encounter Summary ---
Author Organization [facility] Address [address] [place] [facility] [place] [address] Care Team Providers Care Pest Control Technician Name Role Phone Jean Farias MD Primary Care Provider [phone] Jean Farias MD Unavailable Encounter Details Date Type Department Care Team ([facility] Contact Info) Description 09/01/2023 Clinisync Result Encounter [facility] External Department Unsolicited Jean Farias MD [address] [place] [address] Social History Tobacco Use Types [...] Upcoming Encounters Date Type Department Care Team ([facility] Contact Info) Description 06/03/2025 9:00 AM EST Office Visit [facility] [address] [place] [address] Jean Farias MD [address] [place] [address] documented as of this encounter Procedures Procedure Name Priority Date/Time Associated Diagnosis Comments XR FOOT 1-2 VIEWS RIGHT 09/01/2023 3:51 PM EST documented in this encounter Results * XR foot 1 or 2 views right (09/01/2023 3:51 PM EST) Anatomical Region Laterality Modality Lower Extremities, Foot Right [facility] 09/01/2023 3:51 PM EST Narrative 09/01/2023 3:54 PM EST [address] [address] XRay Report Signed Patient: MARICRUZ JUNG MR#: [id number] : 1960 Acct:[id number] Age/Sex: 63 / F ADM Date: 09/01/23 Loc: MAMMO Attending Dr: Jean Farias M.D. Ordering Physician: Jean Farias M.D. Date of Service: 09/01/23 Procedure(s): XR foot RT 2V Accession Number(s): [id number] cc: Jean Farias M.D. [place] [address] Patient Name: MARICRUZ JUNG MRN: [id number]:[id number] date: 1960 Sex: F Assigned Patient Location: [facility] Current Patient Location: [facility] Accession/Order Number: [id number] Exam Date: 09/01/2023 13:38 Report Date: 09/01/2023 15:51 At the request of: JEAN FARIAS Procedure: XR foot RT 2V PROCEDURE: XR foot RT 2V DATE: 09/01/2023 1:38 PM EST COMPARISONS: None CLINICAL INDICATION: Chronic Foot Pain FINDINGS: There is no evidence of fractures or other acute osseous abnormalities. There is marked first metatarsal phalangeal degenerative change. This joint space is narrowed. There is osteophytic spurring. There is subchondral cyst formation and sclerosis. There is a small spur off the posterior inferior os calcis. No other abnormalities identified. XR/XR foot RT 2V IMPRESSION: Right foot radiographs show no evidence of acute abnormalities. Prominent first metatarsal phalangeal degenerative change. Heel spur. Electronically authenticated by: JEFF MARCUM Date: 09/01/2023 15:51 Dictated By: Jeff Marcum M.D. Signed By: 09/01/23 155 DD/ 155 TD/TT: Manufacturers Service Representative: Procedure Note Radiology, Radiologist, MD - 09/01/2023 The [place] [id number] XRay Report Signed Patient: MARICRUZ JUNG FMR#: [id number] : 1960cct:[id number] Age/Sex: 63 / FADM Date: 09/01/23 Loc: MAMMO Attending Dr: Jean Farias M.D. Ordering Physician: Jean Farias M.D. Date of Service: 09/01/23 Procedure(s): XR foot RT 2V Accession Number(s): [id number] cc: Jean Farias M.D. The [place] [address] Patient Name: MARICRUZ JUNG MRN: [facility]:[id number] date: 1960 Sex: F Assigned Patient Location: [facility] Current Patient Location: [facility] Accession/Order Number: [id number] Exam Date: 09/01/2023 13:38 Report Date: 09/01/2023 15:51 At the request of: JEAN FARIAS Procedure: XR foot RT 2V PROCEDURE: XR foot RT 2V DATE: 09/01/2023 1:38 PM EST COMPARISONS: None CLINICAL INDICATION: Chronic Foot Pain FINDINGS: There is no evidence of fractures or other acute osseous abnormalities. There is marked first metatarsal phalangeal degenerative change. Thisjoint space is narrowed. There is osteophytic spurring. There is subchondralcyst formation and sclerosis. There is a small spur off the posterior inferior os calcis. No other abnormalities identified. XR/XR foot RT 2V IMPRESSION: Right foot radiographs show no evidence of acute abnormalities. Prominent first metatarsal phalangeal degenerative change. Heel spur. Electronically authenticated by: JEFF MARCUM Date: 09/01/2023 15:51 Dictated By: Jeff Marcum M.D. Signed By:09/01/23 155 DD/ 50 TD/TT: Manufacturers Service Representative: us Jean Farias MD IMG XR PROCEDURES Final Result documented in this encounter Visit Diagnoses Not on filedocumented in this encounter Care Teams Pest Control Technician Relationship Specialty Start Date End Date Jean Farias MD [address] [place] [address] PCP - General Family Medicine 08/22/23 Jean Farias MD [address] [place] [address] PCP - [facility]oted 12/30/23 documented as of this encounter
--- OUTSIDE RECORDS SUMMARY | 2025-03-05 13:32 | XMS_ITS | Encounter Summary ---
Author Organization [facility] Address [address] [place] [address] Care Team Providers Care Gas Golf Cart Repairer Name Role Phone Luis Daniel Russell MD Primary Care Provider [phone] Luis Daniel Russell MD Unavailable Encounter Details Date Type Department Care Team ([facility] Contact Info) Description 11/04/2023 Clinisync Result [...] Upcoming Encounters Date Type Department Care Team ([facility] Contact Info) Description 06/03/2025 9:00 AM EST [facility] [address] [place] [address] Luis Daniel Russell MD [address] [place] [address] documented as of this encounter Procedures Procedure Name Priority Date/Time Associated Diagnosis Comments XR CERVICAL SPINE W FLEX/EXT 11/04/2023 5:07 AM EDT documented in this encounter Results * XR CERVICAL SPINE W FLEX/EXT (11/04/2023 5:07 AM EDT) Anatomical Region Laterality Modality Other 11/04/2023 5:07 AM EDT Narrative 11/04/2023 5:10 AM EDT [place] [id number] XRay Report Signed Patient: MARICRUZ JUNG MR#: [id number] : 1960 Acct:[id number] Age/Sex: 63 / F ADM Date: 11/03/23 Loc: Attending Dr: Ted Power M.D. Ordering Physician: Ted Power M.D. Date of Service: 11/03/23 Procedure(s): XR cervical spine w flex/ext Accession Number(s): [id number] cc: Luis Daniel Russell M.D.; Ted Power M.D. [place] [id number] Patient Name: MARICRUZ JUNG MRN: [id number] date: 1960 Sex: F Assigned Patient Location: Current Patient Location: Accession/Order Number: [id number] Exam Date: 11/03/2023 09:05 Report Date: 11/04/2023 05:07 At the request of: TED POWER Procedure: XR cervical spine w flex/ext EXAMINATION: XR cervical spine w flex/ext HISTORY: CERVICAL SPINE PAIN COMPARISON: No relevant comparison available. FINDINGS: BONES: No fracture, spondylolisthesis, or change in alignment during flexion and extension. Multilevel mild degenerative facet arthropathy. DISC SPACES: Moderate to marked narrowing C5-C6, C6-C7. PARASPINOUS: Negative. No paraspinous abnormality is seen. OTHER: Negative. XR/XR cervical spine w flex/ext IMPRESSION: 1. No appreciable acute abnormality. 2. Moderate to marked degenerative changes predominantly involving the lower cervical spine. Electronically authenticated by: HAN JACKSON Date: 11/04/2023 05:07 Dictated By: Han Jackson M.D. Signed By: 11/04/23 0510 DD/ 0507 TD/TT: Hospice Care Consultant: Procedure Note Radiology, Radiologist, MD - 11/04/[address] [address] XRay Report Signed Patient: MARICRUZ JUNG FMR#: [id number] : 1960cct:[id number] Age/Sex: 63 / FADM Date: 11/03/23 Loc: Attending Dr: Ted Power M.D. Ordering Physician: Ted Power M.D. Date of Service: 11/03/23 Procedure(s): XR cervical spine w flex/ext Accession Number(s): [id number] cc: Luis Daniel Russell M.D.; Ted Power M.D. The [place] [id number] Patient Name: MARICRUZ JUNG MRN: [id number] date: 1960 Sex: F Assigned Patient Location: Current Patient Location: Accession/Order Number: [id number] Exam Date: 11/03/2023 09:05 Report Date: 11/04/2023 05:07 At the request of: TED POWER Procedure: XR cervical spine w flex/ext EXAMINATION: XR cervical spine w flex/ext HISTORY: CERVICAL SPINE PAIN COMPARISON: No relevant comparison available. FINDINGS: BONES: No fracture, spondylolisthesis, or change in alignment duringflexion and extension. Multilevel mild degenerative facet arthropathy. DISC SPACES: Moderate to marked narrowing C5-C6, C6-C7. PARASPINOUS: Negative. No paraspinous abnormality is seen. OTHER: Negative. XR/XR cervical spine w flex/ext IMPRESSION: 1. No appreciable acute abnormality. 2. Moderate to marked degenerative changes predominantly involving thelower cervical spine. Electronically authenticated by: HAN JACKSON Date: 11/04/2023 05:07 Dictated By: Han Jackson M.D. Signed By:11/04/23 0510 DD/ 0507 TD/TT: Hospice Care Consultant: us Generic External Data Provider [facility] Final Result documented in this encounter Visit Diagnoses Not on filedocumented in this encounter Care Teams Gas Golf Cart Repairer Relationship Specialty Start Date End Date Luis Daniel Russell MD [address] [place] [address] PCP - General Family Medicine 08/22/23 Luis Daniel Russell MD [address] [place] [address] PCP - Devoted 12/30/23 documented as of this encounter
--- OUTSIDE RECORDS SUMMARY | 2025-03-05 13:32 | XMS_ITS | Encounter Summary ---
Author Organization [facility] Address [address] [place] [place] [address] Care Team Providers Care Propulsion Systems Engineer Name Role Phone Luis Daniel Russell MD Primary Care Provider [phone] Luis Daniel uRssell MD Unavailable Encounter Details Date Type Department Care Team ([facility] Contact Info) Description 11/07/2023 Orders Only [facility] [address] [place] [address] Luis Daniel Russell MD [address] [place] [address] Social History Tobacco Use Types Packs/Day Years Used Date Smoking Tobacco: Former Cigarettes 0.5 20 1 - 2014 Smokeless Tobacco: Never Comments Unknown Sex and Gender Information Value Date Recorded Sex Assigned at Not on file Legal Sex Female 6:37 PM EDT Gender Identity Not on file Sexual Orientation Not on file documented as of this encounter Plan of Treatment Upcoming Encounters Date Type Department Care Team ([facility] Contact Info) Description 06/03/2025 9:00 AM EST [facility] [address] [place] [address] Luis Daniel Russell MD [address] [place] [address] documented as of this encounter Procedures Procedure Name Priority Date/Time Associated Diagnosis Comments XR LUMBAR SPINE 2 OR 3V Routine 11/03/2023 3:33 PM EDT XR CERVICAL SPINE AP/LAT/FLEX/EXT Routine 11/03/2023 1:57 PM EDT documented in this encounter Results * XR LUMBAR SPINE 2 OR 3V (11/03/2023 3:33 PM EDT) Anatomical Region Laterality Modality Radiographic Susanna ging us Luis Daniel Russell MD IMG XR PROCEDURES Final Result * XR CERVICAL SPINE AP/LAT/FLEX/EXT (11/03/2023 1:57 PM EDT) Anatomical Region Laterality Modality Spine, C-spine Radiographic Susanna ging us Luis Daniel Russell MD IMG XR PROCEDURES Final Result documented in this encounter Visit Diagnoses Not on filedocumented in this encounter Care Teams Propulsion Systems Engineer Relationship Specialty Start Date End Date Luis Daniel Russell MD [address] [place] [address] PCP - General Family Medicine 08/22/23 Luis Daniel Russell MD [address] [place] [address] PCP - Devoted 12/30/23 documented as of this encounter
--- OUTSIDE RECORDS SUMMARY | 2025-03-05 13:32 | XMS_ITS | Encounter Summary ---
Author Organization [facility] Address [address] [place] [address] Care Team Providers Care Financial Intern Name Role Phone Jean Farias MD Primary Care Provider [phone] Jean Farias MD Unavailable Encounter Details Date Type Department Care Team ([facility] Contact Info) Description 09/01/2023 Clinisync Result Encounter [facility] External Department Unsolicited Jean Farias MD [address] [place] [address] Social History Tobacco Use Types [...] Office Visit [facility] [address] [place] [address] Jean Farias MD [address] [place] [address] documented as of this encounter Procedures Procedure Name Priority Date/Time Associated Diagnosis Comments XR HAND 1-2 VIEWS BILATERAL 09/01/2023 6:54 PM EST documented in this encounter Results * XR hand 1 or 2 views bilateral (09/01/2023 6:54 PM EST) Anatomical Region Laterality Modality Upper Extremities, Hand Bilateral [facility] 09/01/2023 6:54 PM EST Narrative 09/01/2023 6:57 PM EST [address] [address] XRay Report Signed Patient: MARICRUZ JUNG MR#: [id number] : 1960 Acct:[id number] Age/Sex: 63 / F ADM Date: 09/01/23 Loc: MAMMO Attending Dr: Jean Farias M.D. Ordering Physician: Jean Farias M.D. Date of Service: 09/01/23 Procedure(s): XR hand GAVIN 2V Accession Number(s): [id number] cc: Jean Farias M.D. [place] [address] Patient Name: MARICRUZ JUNG MRN: [id number] date: 1960 Sex: F Assigned Patient Location: [facility] Current Patient Location: [facility] Accession/Order Number: [id number] Exam Date: 09/01/2023 13:38 Report Date: 09/01/2023 18:54 At the request of: JEAN FARIAS Procedure: XR hand GAVIN 2V EXAM: XR hand GAVIN 2V HISTORY: Bilateral Primary Osteoarthritis Hand M19.041 COMPARISON: 01/15/2020. TECHNIQUE: PA, lateral x-ray right hand and left hand FINDINGS: No fracture or bony erosion or destruction.. Marked joint space narrowing second metacarpophalangeal lead unchanged.. Remaining joint spaces are normal. There is minimal cystic change hamate, scaphoid more pronounced currently. Multiple foci periarticular calcification. Calcification third metacarpophalangeal joint unchanged, ulnar fibrocartilage and adjacent lunate lunatotriquetral joint increased. Minimal calcification of base of thumb and fifth metacarpal. Left hand: Normal mineralization. No fracture or bony erosion or destruction. No joint space narrowing. Periarticular calcification second metacarpophalangeal think increased from previous. Small subchondral cystic change trapezoid probably stable. Minimal. Calcification adjacent to the distal fifth metacarpal may be new. Increased prominence of calcification ulnar fibrocartilage, adjacent lunate and lunatotriquetral area.. XR/XR hand GAVIN 2V IMPRESSION: Negative for fracture or bony erosion or fracture right or left hand. Marked narrowing right second metacarpal joint space felt to be unchanged. No other joint space narrowing noted. . Multiple sites of periarticular calcification as noted above. Electronically authenticated by: HERNÁN BUCK Date: 09/01/2023 18:54 Dictated By: Hernán Buck M.D. Signed By: 09/01/231856 DD/ 53 TD/TT: Welding Machine Operator Gas: Procedure Note Radiology, Radiologist, - 09/04/2023 [place] [address] XRay Report Signed Patient: MARICRUZ JUNG FMR#: [id number] : 1960cct:[id number] Age/Sex: 63 / FADM Date: 09/01/23 Loc: MAMMO Attending Dr: Jean Farias M.D. Ordering Physician: Jean Farias M.D. Date of Service: 09/01/23 Procedure(s): XR hand GAVIN 2V Accession Number(s): [id number] cc: Jean Farias M.D. The [place] [address] Patient Name: MARICRUZ JUNG MRN: [facility]:[id number] date: 1960 Sex: F Assigned Patient Location: [facility] Current Patient Location: [facility] Accession/Order Number: [id number] Exam Date: 09/01/2023 13:38 Report Date: 09/01/2023 18:54 At the request of: JEAN FARIAS Procedure: XR hand GAVIN 2V EXAM: XR hand GAVIN 2V HISTORY: Bilateral Primary Osteoarthritis Hand M19.041 COMPARISON: 01/15/2020. TECHNIQUE: PA, lateral x-ray right hand and left hand FINDINGS: No fracture or bony erosion or destruction.. Marked joint space narrowing second metacarpophalangeal lead unchanged.. Remaining jointspaces are normal. There is minimal cystic change hamate, scaphoid morepronounced currently. Multiple foci periarticular calcification. Calcification third metacarpophalangeal joint unchanged, ulnar fibrocartilage and adjacentlunate lunatotriquetral joint increased. Minimal calcification of base of thumband fifth metacarpal. Left hand: Normal mineralization. No fracture or bony erosion or destruction. Nojoint space narrowing. Periarticular calcification second metacarpophalangealthink increased from previous. Small subchondral cystic change trapezoidprobably stable. Minimal. Calcification adjacent to the distal fifth metacarpal maybe new. Increased prominence of calcification ulnar fibrocartilage, adjacent lunate and lunatotriquetral area.. XR/XR hand GAVIN 2V IMPRESSION: Negative for fracture or bony erosion or fracture right or left hand.Marked narrowing right second metacarpal joint space felt to be unchanged. Noother joint space narrowing noted. . Multiple sites of periarticular calcification as noted above. Electronically authenticated by: HERNÁN BUCK Date: 09/01/2023 18:54 Dictated By: Hernán Buck M.D. Signed By:09/01/231856 DD/ 53 TD/TT: Welding Machine Operator Gas: Jean Farias MD IMG XR PROCEDURES Final Result documented in this encounter Visit Diagnoses Not on filedocumented in this encounter Care Teams Financial Intern Relationship Specialty Start Date End Date Jean Farias MD [address] [place] [address] PCP - General Family Medicine 08/22/23 Jean Farias MD [address] [place] [address] PCP - Devoted 12/30/23 documented as of this encounter
--- OUTSIDE RECORDS SUMMARY | 2025-03-05 13:32 | XMS_ITS | Patient Health Record ---
Author Organization [facility] Address [address] [place] [address] Care Team Providers Care Stamps Or Coins Salesperson Name Role Phone Luis Daniel Russell Primary Care Provider Han Ferrari Unavailable [phone] Allergies No Known Allergies Reason For Referral No Information Medications Medication SIG (Take, Route, Frequency, Duration) Notes Start Date End Date Status Aleve Active lisinopril Active DULoxetine Active Tylenol Active Social History Tobacco Use: Social History Observation Description Date Details (start date - stop date) Never Smoker NA - NA Smoking History Question Answer Notes Smoking Status NonSmoker Alcohol Screening Question Answer Notes Did you have a drink containging alcohol in the last year? No Points 0 Interpretation Negative AUDIT-C (Standard) Question Answer Notes Did you have a drink containing alcohol in the p ast year? No Did you have a drink containing alcohol in the p ast year? No Did you have a drink containing alcohol in the p ast year? No Problems Problem Type SNOMED Code ICD Code Onset Dates Problem Status W/U Status Risk Notes Problem 99855829 Cervical radiculopathy (M54.12) Active confirmed Problem 36960994 Cervical spinal stenosis (M48.02) Active confirmed Problem 128703181 Spinal stenosis, lumbosacral region (M48.07) Active confirmed Problem 56881950 Other intervertebral disc degeneration, lumbosacral region (M51.37) Active confirmed Problem 9365909 Radiculopathy, lumbosacral region (M54.17) Active confirmed Problem 659294342840678 Primary osteoarthritis of right knee (M17.11) Active confirmed Problem 816367314041921 Primary osteoarthritis of right hip (M16.11) Active confirmed Problem 94605925 Other cervical disc degeneration at C5-C6 level (M50.322) Active confirmed Problem 89965934 Other cervical disc degeneration at C6-C7 level (M50.323) Active confirmed Problem 2413071748 Scoliosis of lumbar region due to degenerative disease of spine in adult (M41.56) Active confirmed Plan Of Treatment Pending Test Test Name Order Date Lumbar spine, 4v flex ext - 74214 2023 Cervical spine,ap,lat,flex,ext - 78125 0 11/03/2023 MRI : Cervical Spine W/O Contrast - 7214 1 11/03/2023 Insurance Providers Payer Name Payer Address Payer Phone Subscriber Number Group Number Insured Name Patient Relationship to Insured Coverage Start Date Coverage End Date Medicare [employer] [address] [place] [address] [id number] [facility] MARICRUZ BOLTON Self - patient is the insured Medical (General) History Medical History History ICD Code Respiratory problems: High Blood Pressure Anxiety Sleep apnea Gastric Reflux Irritable bowel syndrome Kidney stones Osteoporosis Anemia Ovarian Cysts Surgical History Surgery Date(Month/Year) Internal bleeding Knee
--- OUTSIDE RECORDS SUMMARY | 2025-03-05 13:32 | XMS_ITS | Encounter Summary ---
Author Organization [facility] Address [address] [facility] [place] [address] Care Team Providers Care Technical Implementation Lead Name Role Phone Luis Daniel Russell MD Primary Care Provider [phone] Luis Daniel Russell MD Unavailable Encounter Details Date Type Department Care Team ([facility] Contact Info) Description 09/01/2023 Clinisync Result Encounter [facility] External Department Unsolicited Luis Daniel Russell MD [address] [place] [address] Social History Tobacco Use Types [...] Upcoming Encounters Date Type Department Care Team ([facility] Contact Info) Description 06/03/2025 9:00 AM EST Office Visit [facility] [address] [place] [address] Luis Daniel Russell MD [address] [place] [address] documented as of this encounter Procedures Procedure Name Priority Date/Time Associated Diagnosis Comments MM TOMOSYNTHESIS SCREENING BI 09/01/2023 4:12 PM EST documented in this encounter Results * MM TOMOSYNTHESIS SCREENING BI (09/01/2023 4:12 PM EST) Anatomical Region Laterality Modality Other 09/01/2023 4:12 PM EST Narrative 09/01/2023 4:13 [place] [address] Mammography Report Signed Patient: MARICRUZ BOLTON MR#: [id number] : 1960 Acct:[id number] Age/Sex: 63 / F ADM Date: 09/01/23 Loc: MAMMO Attending Dr: Luis Daniel Russell M.D. Ordering Physician: Luis Daniel Russell M.D. Results: Date of Service: 09/01/23 Follow Up: Procedure(s): MM tomosynthesis screening BI Accession Number(s): [id number] cc: Luis Daniel Russell M.D. Patient Name: MARICRUZ BOLTON MR#: [id number] : 1960 Exam Date: 09/01/2023 Ordering Doctor: [...] unknown cancer at age 70. LOCATION: The [facility] BREAST COMPOSITION: Scattered areas fibroglandular density. FINDINGS: [...] M.D. Signed By: 09/01/231612 DD/ 11 TD/TT: Ergonomics Consultant: Procedure Note Radiology, Radiologist, MD - 09/01/2023 [place] [address] Mammography Report Signed Patient: MARICRUZ BOLTON FMR#: [id number] : 1960cct:[id number] Age/Sex: 63 / FADM Date: 09/01/23 Loc: MAMMO Attending Dr: Luis Daniel Russell M.D. Ordering Physician: Luis Daniel Russell M.D.Results: Date of Service: 09/01/23Follow Up: Procedure(s): MM tomosynthesis screening BI Accession Number(s): [id number] cc: Luis Daniel Russell M.D. Patient Name: MARICRUZ BOLTON MR#: [id number] : 1960 Exam Date: 09/01/2023 Ordering Doctor: [...] unknown cancer at age 70. LOCATION: The [facility] BREAST COMPOSITION: Scattered areas fibroglandular density. FINDINGS: [...] 16:12 Dictated By: Han Jackson M.D. Signed By:09/01/23 1613 DD/ 11 TD/TT: Ergonomics Consultant: Luis Daniel Russell MD [facility] Final Result documented in this encounter Visit Diagnoses Not on filedocumented in this encounter Care Teams Technical Implementation Lead Relationship Specialty Start Date End Date Luis Daniel Russell MD [address] [place] [address] PCP - General Family Medicine 08/22/23 Luis Daniel Russell MD [address] [place] [address] PCP - Devoted 12/30/23 documented as of this encounter
== END 2025-03-05 13:29 | disposition home or self-care (01) ==
LOC: MAMMO 13:28
PROVIDERS: PCP Family Medicine; Visit Provider Family Medicine
DX: Z12.31 Encounter for screening mammogram for malignant neoplasm of breast (principal); Z80.3 Family history of malignant neoplasm of breast; Z80.8 Family history of malignant neoplasm of other organs or systems
CPT/HCPCS: 77063; 77067